=== PATIENT | female | born 2005 | race Caucasian/White ===

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

== ENCOUNTER 2023-01-11 00:32 | Outpatient (CLI) | payer OTHER, SELFPAY ==
--- NOTE | 2023-01-11 01:13 | PC.NURSE ---
pt states she felt a gush of fluid and was unsure if it was her water or not. romplus obtained at 0054. negative at 0114. Dr. Hung notified of pt status, instructed to send pt home.
== END 2023-01-11 00:33 | disposition home or self-care (01) ==
LOC: ANHOBOP 00:57
PROVIDERS: PCP Physician Assistant; Visit Provider Obstetrics & Gynecology
DX: O42.90 Premature rupture of membranes, unspecified as to length of time between rupture and onset of labor, unspecified weeks of gestation (principal); Z3A.00 Weeks of gestation of pregnancy not specified
CPT/HCPCS: 59025

== ENCOUNTER 2023-01-13 00:57 | Observation (INO) | payer OTHER, SELFPAY ==
[2023-01-13] VITALS (8 sets, daily range): BP systolic 106–128; BP diastolic 65–86; PULSE 87–137; BMI 32.9
[2023-01-13 01:36] LABS: Appearance Urine Clear (Clear); Bilirubin Urine Negative (Negative); Blood Urine Negative (Negative); Color Urine Yellow (Yellow); Glucose Urine UA Negative (Negative); Ketones Urine 2+ mg/dL (Negative); Leukocyte Esterase Ur 1+ LEU/UL (Negative); Nitrate Urine Negative (Negative); Protein Urine Negative (Negative); Urobilinogen Urine 0.2 mg/dL (<2.0); pH Urine 6.5 (5.0-9.0)
[2023-01-13 01:37] LABS: Add Urine Microscopic? YES; RBC Urine 0-2 /hpf (0-2); WBC Urine 0-3 /hpf
--- NOTE | 2023-02-10 18:21 | PM.OBTRLD ---
OB - Triage/Final Diagnosis Visit Information Comments/Additional reasons for admission: I have assessed the risk for this patient, Lilia Miranda, and determined that she would benefit from observation care. Evaluation Laboratory results: Laboratory Tests 01/13/23 01:19 Urine Color Yellow Urine Appearance Clear Urine pH 6.5 Ur Specific [place] 1.020 Urine Protein Negative Urine Glucose (UA) Negative Urine Ketones 2+ H Ur Blood (Man) Negative Urine Nitrate Negative Urine Bilirubin Negative Urine Urobilinogen 0.2 Leukocyte Esterase Rfl 1+ H Urine RBC 0-2 Urine WBC 0-3 Final Diagnosis (1) False labor: Code(s): O47.9 - False labor, unspecified Status: Acute
== END 2023-01-13 03:15 | disposition home or self-care (01) ==
PROVIDERS: Admitting Provider Obstetrics & Gynecology; PCP Physician Assistant; Referring Provider Advanced Practice Midwife; Visit Provider Obstetrics & Gynecology
DX: O47.03 False labor before 37 completed weeks of gestation, third trimester (principal); Z3A.36 36 weeks gestation of pregnancy
CPT/HCPCS: 81001; G0378; G0379

== ENCOUNTER 2023-01-19 19:45 | Observation (INO) | payer OTHER, SELFPAY ==
[2023-01-19] VITALS (11 sets, daily range): BP systolic 109–129; BP diastolic 48–81; PULSE 84–106; BMI 33.8
== END 2023-01-19 23:45 | disposition home or self-care (01) ==
PROVIDERS: Admitting Provider Obstetrics & Gynecology; PCP Physician Assistant; Referring Provider Advanced Practice Midwife; Visit Provider Obstetrics & Gynecology
DX: O47.03 False labor before 37 completed weeks of gestation, third trimester (principal); Z3A.36 36 weeks gestation of pregnancy
CPT/HCPCS: G0378; G0379

== ENCOUNTER 2023-01-31 12:58 | Observation (INO) | payer OTHER, SELFPAY ==
--- NOTE | ~2023-01-31 | US_ITS ---
EXAMINATION: US OB limited w BPP DATE: 01/31/2023 18:39 INDICATION: Status post fall, evaluate placenta and BPP. TECHNIQUE: Real-time ultrasound of the pelvis was performed. COMPARISON: None. FINDINGS: There is a single living fetus in vertex presentation, oblique lie. The placenta is fundal. he art rate is 142 bpm. The amniotic fluid index is 22.6 cm, which is normal (5th to 95th percentile is 7.3 to 23.9 cm). Biophysical profile performed by the technologist: breathing (30 sec sustained breathing in 30 minutes): 2 out of 2. movement (3 gross body movements in 30 minutes: 2 out of 2. tone (one episode of zfhftoy-anffcphfy-ybpschq limb movement): 2 out of 2. Amniotic fluid pocket (2 cm): 2 out of 2. Total score: 8 out of 8. IMPRESSION: Single living fetus in vertex presentation. Biophysical profile 8 out of 8. Normal appearing fundal placenta. Reviewed, dictated and finalized at location K.
[2023-01-31 14:00] VITALS: BMI 34.5
--- NOTE | 2023-01-31 14:00 | OBADM ---
This patient, Lilia Miranda, admitted to the OB room Labor/Delivery/Recovery 104 for observation after falling. Patient/family oriented to hospital policies and general routines including ID bracelet, bed and alarms, visiting hours, pain management, procedures, bathroom and other care routines, personal items, smoking policy, room service/diet, and visiting hours. Patient/Family are encouraged to report perceived risks to care and to ask questions if they do not understand what they are told or what they should do.
[2023-01-31 17:31] VITALS: BP 120/54; PULSE 103
[2023-01-31 17:47] LABS: Glucose Point of Care 127 mg/dl (65-105)
--- NOTE | 2023-01-31 18:57 | PC.NURSE ---
Arvin Dumont CNM updated on PT ultrasound results. Orders for discharge received.
--- NOTE | 2023-02-01 16:13 | PM.OBTRLD ---
OB - Triage/Final Diagnosis Visit Information Date of evaluation: 01/31/23 Reason for evaluation: other (fall) Comments/Additional reasons for admission: I have assessed the risk for this patient, Lilia Miranda, and determined that she would benefit from observation care. Evaluation Laboratory results: Laboratory Tests 01/31/23 17:39 POC Capillary Glucose 127 H Vital signs: Vital Signs - 24 hr 01/31/23 17:31 Pulse Rate 103 H Blood Pressure 120/54 L
== END 2023-01-31 19:17 | disposition home or self-care (01) ==
PROVIDERS: Admitting Provider Obstetrics & Gynecology; PCP Physician Assistant; Visit Provider Obstetrics & Gynecology
DX: Z04.3 Encounter for examination and observation following other accident (principal)
CPT/HCPCS: 76815; 76819; 82948; G0378; G0379

== ENCOUNTER 2023-02-01 14:06 | Outpatient (CLI) | payer OTHER, SELFPAY ==
[2023-02-01 14:47] LABS: Mean Corpuscular HGB Conc 30.3 g/dl (32-36); Mean Corpuscular Hemoglobin 23.1 pg (26-34); Mean Corpuscular Volume 76.4 fl (80-100); Mean Platelet Volume 10.3 fl (7.4-10.4); Platelet Count Result 245 k/mm3 (150-375); Red Blood Count 4.32 M/mm3 (4.2-5.4); Red Cell Distribution Width 14.8 % (11.5-14.5); White Blood Count 11.3 K/mm3 (4.5-10.0)
[2023-02-01 14:52] LABS: Alanine Aminotransferase 20 U/L (6-35); Albumin Level 3.5 g/dL (3.7-5.6); Alkaline Phosphatase 194 U/L (45-116); Anion Gap 6 mmol/L (8-16); Aspartate Amino Transferase 23 U/L (14-36); Bilirubin,Total 0.3 mg/dL (0.2-1.3); Blood Urea Nitrogen 8 mg/dL (8-21); Calcium 8.8 mg/dL (8.9-10.7); Carbon Dioxide 20 mmol/L (22-30); Chloride 105 mmol/L (98-107); Estimated Glomerular Filt Rate > 60; Glucose 106 mg/dL (65-110); Potassium 3.6 mmol/L (3.4-5.0); Sodium 131 mmol/L (134-143); Uric Acid 3.9 mg/dL (3.0-5.9)
== END 2023-02-01 14:07 | disposition home or self-care (01) ==
LOC: ANHLAB 14:09
PROVIDERS: PCP Physician Assistant; Visit Provider Advanced Practice Midwife
DX: O13.9 Gestational [pregnancy-induced] hypertension without significant proteinuria, unspecified trimester (principal); Z3A.00 Weeks of gestation of pregnancy not specified
CPT/HCPCS: 36415; 80053; 84550; 85027

== ENCOUNTER 2023-02-04 00:04 | Inpatient (IN) | payer OTHER, SELFPAY ==
[2023-02-04] VITALS (106 sets, daily range): BP systolic 95–150; BP diastolic 42–79; PULSE 75–137; RESP 17–20; TEMP 36.1–37.7; O2SAT 95–100; BMI 34.5
--- NOTE | 2023-02-04 00:23 | LDADM ---
This patient, Lilia Miranda, was admitted to Labor/Delivery/Recovery 104 on 02/04/23 at 00:04. Plans for labor, pain management and were discussed with patient. Patient/family oriented to hospital policies and general routines including ID bracelet, bed and alarms, visiting hours, pain management, procedures, bathroom and other care routines, personal items, smoking policy, room service/diet and guest tray routines, infant security routines, and visiting hours. Patient/Family are encouraged to report perceived risks to care and to ask questions if they do not understand what they are told or what they should do. See OBIX for further documentation.
--- NOTE | 2023-02-04 01:21 | P.PNAN_ITS ---
Anes - Eval Pre Procedure Procedure: labor epidural Date/Time: 02/04/23 01:21 Surgeon: iona Preop Diagnosis: pain during labor Pre Op Diagnosis: IOL Patient Data Age: 17 Gender: F Height: 1.7 m Weight: 100 kg Last Vital Signs O2 Del Method Room Air 02/04/23 00:23 Allergies Allergy/AdvReac Type Severity Reaction Status Date / Time bee venom protein (honey bee) Allergy Unknown Hives Verified 01/24/23 15:44 [bees] venom-wasp Allergy Unknown Hives Verified 01/24/23 15:44 red dye Allergy Swelling Verified 01/24/23 15:44 of Lip/Tongue/Throat Home Medications Medication Instructions Recorded Confirmed Type buspirone 5 mg tablet 15 mg PO DAILY 11/09/20 02/04/23 History lamotrigine 25 mg tablet 75 mg PO DAILY 10/25/21 02/04/23 History famotidine 10 mg tablet 10 mg PO DAILY 12/31/22 02/04/23 History lorazepam 1 mg tablet (Ativan) 1 mg PO DAILY PRN Anxiety 12/31/22 01/31/23 History glyburide 2.5 mg tablet 2.5 mg PO DAILY 01/24/23 02/04/23 History prenat.vits,shawn,xkt-aaet-jnxpp 1 tablet PO DAILY 01/24/23 02/04/23 History fluoxetine 10 mg capsule 30 mg PO DAILY 01/31/23 02/04/23 History ondansetron 4 mg disintegrating 4 mg PO Q8H PRN Nausea And Vomiting 01/31/23 01/31/23 History tablet Patient hx anesthesia problems: none Family hx anesthesia problems: none Results Review: All pre-operative results and documents have been reviewed as part of the pre- operative evaluation. [facility] Past Medical History Medical History (Updated 12/30/22 @ 20:09 by Pina Hung MD) Ankle fracture, left Anxiety Depression Right arm fracture Tonsillitis UTI (urinary tract infection) Surgical History Surgical History History of dental surgery Family History Family History (Updated 01/24/23 @ 15:51 by Iva Jacinto RN) Father Diabetes mellitus SVT (supraventricular tachycardia) Grandparent Diabetes mellitus Grandparent Diabetes mellitus Social History Social History Smoking status: Never smoker Alcohol intake: current Substance use: never Lack of Transportation: No Lack of Food: Never True Current Housing: I Have Housing Concerned About Future Housing: No Difficulty Paying Gas/Electric Bills: No Difficulty Paying for Meds: No Currently Unemployed: No Education: High School Diploma/GED Difficulty w/ Childcare or Family Care: No Gender identity (if verbalized by the patient): Female Spiritual care concerns: No Exam Day of Procedure 02/04/23 01:21
[2023-02-04 01:43] LABS: Basophils Percent Auto 0.4 % (0.2-1.2); Eosinophils Absolute Auto 0.1 K/mm3 (0-0.3); Eosinophils Percent Auto 0.6 % (0-4.4); Hematocrit 32.4 % (37.0-47.0); Hemoglobin 9.8 g/dL (12.0-15.0); Immature Granulocyte Absolute 0.09 K/mm3 (0.00-0.031); Immature Granulocyte Percent A 0.8 % (0-0.5); Lymphocytes Absolute Auto 1.99 K/mm3 (0.9-3.2); Lymphocytes Percent Auto 18.3 % (18.3-44.2); Mean Corpuscular HGB Conc 30.2 g/dl (32-36); Mean Corpuscular Hemoglobin 23.2 pg (26-34); Mean Corpuscular Volume 76.6 fl (80-100); Monocytes Absolute Auto 0.7 K/mm3 (0.1-0.6); Monocytes Percent Auto 6.6 % (2.6-8.5); Neutrophils Percent Auto 73.3 % (45.5-73.1); Platelet Count Result 243 k/mm3 (150-375); Red Blood Count 4.23 M/mm3 (4.2-5.4); Red Cell Distribution Width 15.2 % (11.5-14.5); White Blood Count 10.9 K/mm3 (4.5-10.0)
[2023-02-04 01:56] LABS: Glucose Point of Care 107 mg/dl (65-105)
[2023-02-04] MEDS: LACTATED RINGERS 1,000 ML 125 ML IV CONT ×2 (02:09→09:16)
[2023-02-04] MEDS: OXYTOCIN 30 UNITS/NS 500 ML 30 UNITS/500 ML BAG 6 UNITS IV CONT (02:10)
[2023-02-04] MEDS: glyBURIDE 2.5 MG TABLET PO (02:36)
[2023-02-04] MEDS: ONDANSETRON INJ 4 MG/2 ML VIAL IV PUSH (02:37)
[2023-02-04] MEDS: diphenhydrAMINE HCl INJ 50 MG/ML VIAL 25 MG IV PUSH ×2 (02:37→11:44)
[2023-02-04 03:00] LABS: HIV 1/2 Ab P24 Ag Result Negative (Negative)
[2023-02-04 06:36] LABS: Glucose Point of Care 77 mg/dl (65-105)
[2023-02-04 07:41] LABS: Rapid Plasma Reagin Non-Reactive (NonReactive)
[2023-02-04] MEDS: fentaNYL CITRATE INJ (*CRX) 100 MCG/2 ML VIAL 50 MCG IV PUSH (08:06)
--- NOTE | 2023-02-04 08:51 | PM.IMHP ---
H&P: HPI History of Present Illness Date/Time: 02/04/23 08:51 Chief Complaint: pt is a at 39 weeks gestation, presents for IOL, GDMA-2, on glyburide. hx anemia, bipolar disorder, anxiety, and depression. co-managing pt today with Dr. Shaikh. Review of Systems Review of Systems: All systems reviewed & are unremarkable except as noted in HPI and below PMFSH Past Medical History Medical History (Updated 02/04/23 @ 08:54 by Yoanna Dumont CNM) Ankle fracture, left Anxiety Depression Right arm fracture Tonsillitis UTI (urinary tract infection) Surgical History Surgical History History of dental surgery Family History Family History (Updated 01/24/23 @ 15:51 by Iva Jacinto RN) Father Diabetes mellitus SVT (supraventricular tachycardia) Grandparent Diabetes mellitus Grandparent Diabetes mellitus Social History Social History Smoking status: Never smoker Alcohol intake: current Substance use: never Lack of Transportation: No Lack of Food: Never True Current Housing: I Have Housing Concerned About Future Housing: No Difficulty Paying Gas/Electric Bills: No Difficulty Paying for Meds: No Currently Unemployed: No Education: High School Diploma/GED Difficulty w/ Childcare or Family Care: No Gender identity (if verbalized by the patient): Female Spiritual care concerns: No Meds Home Medications and Allergies Home Medications Medication Instructions Recorded Confirmed Type buspirone 5 mg tablet 15 mg PO DAILY 11/09/20 02/04/23 History lamotrigine 25 mg tablet 75 mg PO DAILY 10/25/21 02/04/23 History famotidine 10 mg tablet 10 mg PO DAILY 12/31/22 02/04/23 History lorazepam 1 mg tablet (Ativan) 1 mg PO DAILY PRN Anxiety 12/31/22 02/04/23 History glyburide 2.5 mg tablet 2.5 mg PO DAILY 01/24/23 02/04/23 History prenat.vits,shawn,krh-bkud-pjnwr 1 tablet PO DAILY 01/24/23 02/04/23 History fluoxetine 10 mg capsule 30 mg PO DAILY 01/31/23 02/04/23 History ondansetron 4 mg disintegrating 4 mg PO Q8H PRN Nausea And Vomiting 01/31/23 01/31/23 History tablet Allergies Allergy/AdvReac Type Severity Reaction Status Date / Time bee venom protein (honey bee) Allergy Unknown Hives Verified 01/24/23 15:44 [bees] venom-wasp Allergy Unknown Hives Verified 01/24/23 15:44 red dye Allergy Swelling Verified 01/24/23 15:44 of Lip/Tongue/Throat Vital Signs Vital Signs - 24 hr 02/04/23 00:23 02/04/23 02:20 02/04/23 03:01 Temperature Pulse Rate 89 83 Blood Pressure 98/53 L 98/45 L Oxygen Delivery Room Air 02/04/23 03:31 02/04/23 04:01 02/04/23 05:01 Temperature Pulse Rate 90 75 84 Blood Pressure 112/55 L 105/42 L 104/78 Oxygen Delivery 02/04/23 05:31 02/04/23 06:22 02/04/23 06:30 Temperature 36.8 C Pulse Rate 81 103 H Blood Pressure 95/44 L 130/73 Oxygen Delivery 02/04/23 08:04 02/04/23 08:31 Temperature Pulse Rate 98 84 Blood Pressure 130/46 L 116/51 L Oxygen Delivery Exam Const: General: cooperative, healthy appearing and comfortable Chest: Chest palpation & inspection: normal inspection of the chest Resp: Effort & Inspection: normal respiratory effort Cardio: Rate: regular rate Rhythm: regular rhythm GI: Inspection: normal to inspection : Other: SVE 5/80/-2 Skin: General skin exam: normal color and no rashes or lesions noted Extrem: Right lower extremity: normal to inspection Left lower extremity: normal to inspection H&P: Results Labs Labs: Short CBC 02/04/23 Range/Units 00:52 WBC 10.9 H (4.5-10.0) K/mm3 Hgb 9.8 L (12.0-15.0) g/dL Hct 32.4 L (37.0-47.0) % Plt Count 243 (150-375) k/mm3 Assessment and Plan Assessment and plan (1) Bipolar 1 disorder: Code(s): F31.9 - Bipolar disorder, unspecified Status: Acute
[2023-02-04] MEDS: fentaNYL CITRATE INJ (*CRX) 100 MCG/2 ML VIAL IV PUSH (09:17)
[2023-02-04 10:39] LABS: Glucose Point of Care 87 mg/dl (65-105)
[2023-02-04 11:50] LABS: Glucose Point of Care 70 mg/dl (65-105)
--- NOTE | 2023-02-04 14:21 | PM.OBPRVD ---
OB - Delivery Note Procedure Delivery date: 02/04/23 Procedure: Events: Diabetes Mellitus and Other (anxiety) Induction method: AROM and Per Pitocin Protocol Delivery monitor: External FHT and Internal Uterine Route of delivery: Laceration Description: Perineal - 2nd Degree Delivery repair: vicryl Specimen: Yes Quantitative Blood Loss (ml): 260 Anesthesia type: Epidural Disposition: Floor Baby Date of : 02/04/23 Time of : 14:05 Weeks of gestation at delivery: 39 Infant gender: Male Weight (pounds): 8 Weight (ounces): 9 presentation: vertex position: Left Occiput Anterior Placenta delivery description: Spontaneous Cord Vessel Description: 3 Vessels and Clamped/Cut score one minute: 9 score five minutes: 9 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
[2023-02-04] MEDS: OXYTOCIN 30 UNITS/NS 500 ML 30 UNITS/500 ML BAG 125 UNITS IV CONT (14:50)
[2023-02-04] MEDS: WITCH HAZEL 40 PADS 1 PAD TOPICAL (15:57)
[2023-02-04] MEDS: BENZOCAINE 20% AER SPR (*SP) 56 GM CAN 1 SPRAY TOPICAL (15:57)
[2023-02-04] MEDS: IBUPROFEN 600 MG TABLET PO (15:57)
--- NOTE | 2023-02-04 17:29 | PHAR ---
HOME MED: PILL SENT FROM [employer]. PILL IS IDENTIFIED TO BE FLUOXETINE. COLOR: BLUE , WHITE SHAPE: CAPSULE-SHAPE IMPRINT: FLUOXETINE 40MG; R149 ROUTE: ORAL ROUTE FORM: CAPSULE VERIFIED BY PHARMACY
[2023-02-04] MEDS: ACETAMINOPHEN 325 MG TABLET 650 MG (20:17)
[2023-02-05] MEDS: IBUPROFEN 600 MG TABLET PO ×3 (05:27→23:49)
[2023-02-05] MEDS: ACETAMINOPHEN 325 MG TABLET 650 MG PO ×3 (05:29→23:51)
[2023-02-05 05:32] LABS: Hematocrit 33.5 % (37.0-47.0); Hemoglobin 9.9 g/dL (12.0-15.0)
[2023-02-05 07:40] VITALS: BP 114/64; PULSE 103; RESP 16; TEMP 36.9; O2SAT 99
--- NOTE | 2023-02-05 08:57 | PM.OBPNVD ---
OB - PN: Subj Subjective Date/time seen: 02/05/23 08:57 Patient comments: no complaints, pain well controlled, incisional pain, tolerating diet and flatus present OB - PN: Obj Data Labs 02/05/23 05:20 Labs: Laboratory Results - last 24 hr 02/04/23 02/04/23 02/05/23 10:33 11:47 05:20 Hgb 9.9 L Hct 33.5 L POC Capillary Glucose 87 70 OB - PN A/P Plan day: 1 Plan: routine care Comments: No problems, routine care Time Spent With Patient Time: Total time spent is greater than 50% in coordination of care (as documented) at patient's floor/unit and/or counseling patient: Exam Const: General: healthy appearing, comfortable and no acute distress Resp: Effort & Inspection: normal respiratory effort Auscultation: clear to auscultation bilaterally, no rales, no rhonchi and no wheezes Cardio: Rate: regular rate Heart sounds: no click, no murmurs and no rubs GI: Inspection: non-distended GI Palp: No Tenderness to palpation present (GI) Auscultation: normal bowel sounds Other: Incision - CDI Extrem: General: normal to inspection, no pedal edema and no calf tenderness
[2023-02-05] MEDS: lamoTRIgine 50 MG TABLET PO (09:00)
[2023-02-05] MEDS: MULTIVIT/MIN/PREN/FOL AC/IRON TABLET 1 TAB PO (09:00)
[2023-02-05] MEDS: busPIRone HCL 5 MG TABLET 15 MG PO (09:00)
[2023-02-05] MEDS: WITCH HAZEL 40 PADS 1 PAD TOPICAL ×2 (09:48→18:02)
--- NOTE | 2023-02-05 13:57 | WPDANLDPN2 ---
Anes-Prog Note L&D Date/Time: 02/05/23 13:57 Comfortable throughout: labor and delivery Neuraxial method: epidural Epidural/Spinal procedure site: clean & non-tender (some discomfort from tape on upper back. Epidural insertion site no redness or pain. ) Neuro status: Neuro function grossly intact. Cardiovascular status: normal Respiratory status: normal Airway patency: baseline Mental status: baseline Post-Op hydration status: normal Vital Signs: Last Vital Signs Temp 36.9 C 02/05/23 07:40 Pulse 103 H 02/05/23 07:40 Resp 16 02/05/23 07:40 BP 114/64 02/05/23 07:40 Pulse Ox 99 02/05/23 07:40 O2 Del Method Room Air 02/04/23 00:23 Pain score (VAS): 3/10 I/O: Intake & Output 02/04/23 02/05/23 02/05/23 23:59 07:59 15:59 Intake Total 1900 Output Total 195 Balance 1705 Post-procedural complaints: none Patient feedback: Patient satisfied with anesthetic care.
[2023-02-05 14:00] VITALS: BP 99/53; PULSE 76; RESP 16; TEMP 36.6; O2SAT 98
[2023-02-05] MEDS: TETANUS,DIPHTHERIA,AC PERTUSSIS ADULT (0.5 ML) BOOSTRIX IM (16:00)
[2023-02-05] MEDS: DIBUCAINE 1% OINTMENT 30 GM TUBE 1 APPLIC TOPICAL (18:02)
[2023-02-05] MEDS: BENZOCAINE 20% AER SPR (*SP) 56 GM CAN 1 SPRAY TOPICAL (18:02)
[2023-02-05 19:25] VITALS: BP 123/61; PULSE 81; RESP 18; TEMP 36.4
--- NOTE | 2023-02-06 07:18 | PM.OBPNVD ---
OB - PN: Subj Subjective Date/time seen: 02/06/23 07:18 PP day 2 anxiety has increased, plan to call MD for increase in medication discussed breast vs bottle feeding plan to d/c home today OB - PN: Obj Data Labs 02/05/23 05:20 OB - PN A/P Plan day: 2 Plan: routine care and discharge home Time Spent With Patient Time: Total time spent is greater than 50% in coordination of care (as documented) at patient's floor/unit and/or counseling patient: Review of Systems Review of Systems: All systems reviewed & are unremarkable except as noted in HPI and below Exam Const: General: cooperative, healthy appearing and anxious Chest: Chest palpation & inspection: normal inspection of the chest Resp: Effort & Inspection: normal respiratory effort Cardio: Rate: regular rate Rhythm: regular rhythm GI: Other: soft Skin: General skin exam: normal color and no rashes or lesions noted Extrem: Right lower extremity: normal to inspection Left lower extremity: normal to inspection
--- NOTE | 2023-02-06 07:22 | P.DS_ITS ---
DS: Admitting Diagnosis Discharge Date 02/06/23 Admitting Diagnosis IOL, GDMA-2 DS: Discharge Diagnosis Discharge Diagnosis (1) Vaginal delivery: Code(s): O80 - Encounter for full-term uncomplicated delivery Status: Acute (2) Bipolar 1 disorder: Code(s): F31.9 - Bipolar disorder, unspecified Status: Acute OB - DS: Summary OB Procedures : None OB Procedures Intrapartum: Spontaneous Vag Delivery OB Procedures: : None Time Spent with Patient Time attestation: Total time spent providing and/or coordinating discharge services: DS: Data Data Completed and Pending Pending studies at discharge: Pending at discharge 02/04/23 14:08 Surgical [PTH] Routine Discharge Plan Discharge Attending physician on discharge: Pina Hung Discharging Clinician: Yoanna Dumont Patient Disposition: Home, Self-Care Activity: pelvic rest Diet: regular Patient Instructions: Antibiotic Form Stand Alone Forms: General Discharge Information Follow-up/Referrals: Yoanna Dumont, CNM [Certified Nurse Metallurgical Technician] - 4 Weeks Discharge Medications: New ibuprofen 600 mg Tablet 600 mg PO Q6H PRN (Reason: Cramping) Qty: 30 0RF Continued buspirone 5 mg Tablet 15 mg PO DAILY lamotrigine 25 mg Tablet 75 mg PO DAILY famotidine 10 mg Tablet 10 mg PO DAILY lorazepam [Ativan] 1 mg Tablet 1 mg PO DAILY PRN (Reason: Anxiety) prenat.vits,shawn,who-jjri-pzckh Tablet 1 tablet PO DAILY fluoxetine 10 mg capsule 30 mg PO DAILY Discontinued glyburide 2.5 mg Tablet 2.5 mg PO DAILY ondansetron 4 mg tablet,disintegrating 4 mg PO Q8H PRN (Reason: Nausea And Vomiting) Date of admission: 02/04/23 00:04 Primary Care Provider: Ricco,Ondina Whitney Admitting Provider: Pina Hung Attending physician on admission: Pina Hung Condition: Stable
[2023-02-06 07:40] VITALS: BP 125/73; PULSE 95; RESP 18; TEMP 36.4; O2SAT 100
[2023-02-06] MEDS: IBUPROFEN 600 MG TABLET PO (09:08)
[2023-02-06] MEDS: ACETAMINOPHEN 325 MG TABLET 650 MG PO (09:09)
--- NOTE | 2023-02-06 09:34 | PC.NURSE ---
Addendum entered by Keesha Stinson RN 02/06/23 15:53: Error: Patient was given the opportunity to view the discharge video Mother & Baby Care, The First Two Weeks and to ask questions. Patient stated that she did review this video and verbalizes understanding of information. Original Note: Patient was given the opportunity to view the discharge video Mother & Baby Care, The First Two Weeks and to ask questions. Patient declined viewing the video and has been given the mother/baby guide for home reference.
--- NOTE | 2023-02-06 17:15 | PC.NURSE ---
[id number] Introductions were made, then consulted with patient to assess needs related to . Mother led the conversation with her?plans to feed?her infant and the?experience so far. Mother works well with her with encouragement and education. Encouraged understanding of the benefits of skin to skin (demonstrating unwrapping and placing upright on her chest), stimulating with massage touch, changing positions to encourage wakefulness, how to watch for early feeding cues, responsive feeding, feeding on demand (aiming for 8-12 times in 24 hours, about every 2-3 hours), milk production, building/maintaining a milk supply, duration of feeding, signs of adequate intake/output and how to record on the feeding sheet. Reviewed positioning and ear, shoulder, hip alignment, supporting the breast to facilitate a deep latch, asymmetrical latch (off-center), leading with the chin with a big, open, wide gape and body close to mother. Infant latched optimally to the right breast in football position. Education given to mother of how to visualize suck/swallow ratios and listen for drinking at the breast. Infant was able to maintain latch without discomfort to mother. Nipple care reviewed with optimal latch and good positioning. Reminding mother of comfort measures of healing with a warm and wet washcloth to rinse breast, then leave open to air-dry as needed. Reviewed good handwashing when or touching the breast/nipples to prevent infection. Resources used to facilitate learning were used with the visual handouts, tool, mom and baby guide. Mother voiced understanding of skin to skin, stimulating with massage touch, responsive feedings, hand expressed colostrum, talking to infant to encourage if it has been 2 -2.5 hours since the start of the last , to call if does not latch, or if there is discomfort with . Resources provided for inpatient/outpatient with feeding sheet and the mom/baby guide. Parents voiced understanding of information, demonstrated learning and will call if there is a request for assistance. Reinforced understanding of milk production, transition of milk, signs of adequate intake, transition of stool, prevention/relief of engorgement, responsive watching for feeding cues, the different methods of stimulating infant to breastfeed 2-3 hours after the start of the last feeding, community resources, medication information reviewed per [employer] and when to call a provider using the resource of the mom and baby guide. Mother voiced understanding of the education shared. Reported to the primary RN.
[2023-02-07 11:19] VITALS: BP 124/75; PULSE 99; RESP 18; TEMP 37.4; O2SAT 99
== END 2023-02-06 15:57 | disposition home or self-care (01) | DRG 560 ==
LOC: ANHLDR 00:09 → ANHOB2 16:32
PROVIDERS: Advanced Practice Midwife; Admitting Provider Obstetrics & Gynecology; PCP Physician Assistant; Visit Provider Obstetrics & Gynecology
DX: O24.429 Gestational diabetes mellitus in childbirth, unspecified control (principal); Z37.0 Single live birth; Z3A.39 39 weeks gestation of pregnancy; D64.9 Anemia, unspecified; O70.1 Second degree perineal laceration during delivery; O77.0 Labor and delivery complicated by meconium in amniotic fluid; O99.344 Other mental disorders complicating childbirth; F31.9 Bipolar disorder, unspecified; F41.9 Anxiety disorder, unspecified; O99.02 Anemia complicating childbirth
CPT/HCPCS: 36415; 80053; 82948; 84550; 85014; 85018; 85025; 85027; 86592; 86703; 86850; 86900; 86901; 88307; 90715; A9270; G0432; J1200; J2405; J2590; J2795; J3010; J7120

== ENCOUNTER 2023-09-24 09:54 | Emergency (ER) | payer OTHER, SELFPAY ==
--- NOTE | 2023-09-24 10:18 | ED.GENADULT ---
HPI - General Adult General Chief complaint: Upper Respiratory Infection Stated complaint: Sore Throat Source: patient, RN notes reviewed and old records reviewed Mode of arrival: ambulatory Limitations: no limitations History of Present Illness HPI narrative: 18-year-old female presents to [facility], with complaint of cough, congestion, sore throat this started 2 days ago. Patient has not taken anything [id number] for symptoms. Patient denies any other complaints. Related Data Home Medications Medication Instructions Recorded Confirmed buspirone 15 mg tablet mg 09/24/23 etonogestrel 0.12 mg-ethinyl vag ring vaginal 09/24/23 estradiol 0.015 mg/24 hr vaginal ring fluoxetine 40 mg capsule mg 09/24/23 lamotrigine 150 mg tablet mg 09/24/23 lurasidone 40 mg tablet mg 09/24/23 trazodone 50 mg tablet mg 09/24/23 Allergies Allergy/AdvReac Type Severity Reaction Status Date / Time bee venom protein (honey bee) Allergy Unknown Anaphylactic Verified 09/24/23 10:30 [bees] Shock venom-wasp Allergy Unknown Anaphylactic Verified 09/24/23 10:30 Shock red dye Allergy Swelling Verified 09/24/23 10:00 of Lip/Tongue/Throat Review of Systems Constitutional: Constitutional: Reports no additional constitutional complaints, Denies body ache(s), Denies chills, Denies fatigue, Denies fever(s) and Denies headache(s) Eyes: Eyes: Reports no additional eye complaints and Denies blurry vision ENT: Reports system reviewed and no additional complaints, except as documented, Denies vertigo, Denies dizziness, Denies ear discharge, Denies otalgia, Denies facial pain, Denies headache(s), Reports nasal congestion, Denies nasal discharge, Denies sinus pain, Denies sinus pressure and Reports sore throat Cardiovascular: Cardiovascular: Reports no additional cardiovascular complaints, Denies chest pain, Denies chest pain at rest, Denies rapid heart rate and Denies dyspnea Respiratory: Respiratory: Reports no additional respiratory complaints, Denies chest congestion, Reports cough, Denies pain on inspiration, Denies pain with cough and Denies dyspnea Gastrointestinal: Gastrointestinal: Denies abdominal pain, Denies diarrhea, Denies nausea and Denies vomiting Integumentary/Breasts: Skin/Breast: Denies rash Neurologic: Reports system reviewed and no additional complaints, except as documented, Denies vertigo, Denies dizziness and Denies headache(s) Endocrine: Endocrine: Denies fatigue PMFSH Past Medical History Medical History Ankle fracture, left Anxiety Depression Right arm fracture Tonsillitis UTI (urinary tract infection) Surgical History Surgical History History of dental surgery Family History Family History Father Diabetes mellitus SVT (supraventricular tachycardia) Grandparent Diabetes mellitus Grandparent Diabetes mellitus Social History Social History Smoking status: Never smoker Alcohol intake: current Substance use: never Lack of Transportation: No Lack of Food: Never True Current Housing: I Have Housing Concerned About Future Housing: No Difficulty Paying Gas/Electric Bills: No Difficulty Paying for Meds: No Currently Unemployed: No Education: High School Diploma/GED Difficulty w/ Childcare or Family Care: No Gender identity (if verbalized by the patient): Female Spiritual care concerns: No Comments At the time of my signature, I reviewed and agree with the nursing past medical, surgical, social, and family history. There is no relevant family history pertinent to the patient complaint. Exam Const: General: cooperative, healthy appearing, no acute distress and well nourished Nutritional Appearance: well nourished Orientation
[2023-09-24 10:21] VITALS: BP 134/77; PULSE 94; RESP 18; O2SAT 98
== END 2023-09-24 10:50 | disposition home or self-care (01) ==
PROVIDERS: Emergency Provider Registered Nurse; PCP Physician Assistant
DX: B34.9 Viral infection, unspecified (principal); Z20.822 Contact with and (suspected) exposure to COVID-19
CPT/HCPCS: 87081; 87426; 87804; 87880; 99213; G0463

== ENCOUNTER 2024-03-02 11:51 | Emergency (ER) | payer OTHER, SELFPAY ==
[2024-03-02 11:56] VITALS: BP 134/74; PULSE 109; RESP 20; TEMP 36.9; O2SAT 99
--- NOTE | 2024-03-02 12:06 | ED.URI ---
HPI - URI/Sore Throat General Chief Complaint: Upper Respiratory Infection Stated Complaint: Sore Throat Time Seen by Provider: 03/02/24 12:06 History of Present Illness HPI Narrative: 18 y/o female presented for c/o sore throat and post nasal drainage. Onset yesterday. Endorses painful swallow and right neck pain. denies cough, sob, wheezing, n/v/d/f/c. Not taking anything for symptoms. Denies sick contact. Related Data Home Medications Medication Instructions Recorded Confirmed buspirone 15 mg tablet 15 mg PO TID 09/24/23 03/02/24 fluoxetine 40 mg capsule 40 mg PO DAILY 09/24/23 03/02/24 lamotrigine 150 mg tablet 150 mg PO DAILY 09/24/23 03/02/24 lurasidone 40 mg tablet 40 mg PO DAILY 09/24/23 03/02/24 trazodone 50 mg tablet 50 mg PO BID 09/24/23 03/02/24 bupropion HCl 100 mg tablet,12 hr 100 mg PO BID 03/02/24 03/02/24 sustained-release etonogestrel 0.12 mg-ethinyl See Rx Instructions .Route .COMPLEX 03/02/24 03/02/24 estradiol 0.015 mg/24 hr vaginal ring Allergies Allergy/AdvReac Type Severity Reaction Status Date / Time bee venom protein (honey bee) Allergy Unknown Anaphylactic Verified 03/02/24 12:08 [bees] Shock venom-wasp Allergy Unknown Anaphylactic Verified 03/02/24 12:08 Shock red dye Allergy Swelling Verified 03/02/24 12:08 of Lip/Tongue/Throat Review of Systems Review of Systems: CONSTITUTIONAL: Denies body aches, fever, chills, or sweats. EYES: Denies visual changes, redness, or discharge. ENT: reports sore throat rhinorrhea, denies otalgia. CARDIOVASCULAR: Denies chest pain, palpitations, or edema. RESPIRATORY: Denies dyspnea. GASTROINTESTINAL: Denies abdominal pain, nausea, vomiting, or diarrhea. SKIN: Denies rash, itching, or wounds. MUSCULOSKELETAL: Denies back pain, joint pain, or myalgia. NEUROLOGIC: Denies headache PMFSH Past Medical History Medical History Ankle fracture, left Anxiety Depression Right arm fracture Tonsillitis UTI (urinary tract infection) Surgical History Surgical History History of dental surgery Family History Family History Father Diabetes mellitus SVT (supraventricular tachycardia) Grandparent Diabetes mellitus Grandparent Diabetes mellitus Social History Social History Smoking status: Never smoker Alcohol intake: current Substance use: never Lack of Transportation: No Lack of Food: Never True Current Housing: I Have Housing Concerned About Future Housing: No Difficulty Paying Gas/Electric Bills: No Difficulty Paying for Meds: No Currently Unemployed: No Education: High School Diploma/GED Difficulty w/ Childcare or Family Care: No Gender identity (if verbalized by the patient): Female Spiritual care concerns: No Exam Narrative: GENERAL: well-appearing, no acute distress. EYES: conjunctivae clear ENT: Mucous membranes moist. TMs pearly santoro with normal light reflex bilaterally; no tragal tenderness. Oropharynx erythematous Tonsils enlarged 2+ with exudate. No drooling, no hoarseness, no trismus, uvula midline. No tripod positioning, hot potato voice, or soft palate swelling. NECK: Supple. right anterior cervical lymphadenopathy CHEST: Clear to auscultation, breath sounds equal. No respiratory distress, speaks in full sentences. HEART: Regular rate and rhythm. No murmur heard. SKIN: Warm, dry, no rash. NEURO: Alert and oriented x3. Course Course Emergency Course: Patient is aware of diagnosis, understands and agrees to treatment plan. Anticipatory guidance given. Patient agrees to follow-up as directed and is aware of reasons to seek care at the emergency department. Portions of this record may have been created with voice recognition software Le
[2024-03-02 12:15] LABS: EDSTREPNEGPOS1 Negative (Negative)
== END 2024-03-02 12:20 | disposition home or self-care (01) ==
PROVIDERS: Emergency Provider Nurse Practitioner Family; PCP Physician Assistant
DX: J03.90 Acute tonsillitis, unspecified (principal); F41.9 Anxiety disorder, unspecified; F32.A Depression, unspecified
CPT/HCPCS: 87081; 87880; 99213; G0463

== ENCOUNTER 2024-05-15 13:34 | Outpatient (CLI) | payer OTHER, SELFPAY ==
[2024-05-15 14:57] LABS: Beta HCG Quantitative < 2.39 mIU/ML
[2024-05-19 04:19] LABS: Progesterone 13.4 ng/mL
== END 2024-05-15 13:35 | disposition home or self-care (01) ==
PROVIDERS: PCP Physician Assistant; Visit Provider Obstetrics & Gynecology
DX: Z32.01 Encounter for pregnancy test, result positive (principal)
CPT/HCPCS: 36415; 84144; 84702

== ENCOUNTER 2024-08-26 11:05 | Emergency (ER) | payer OTHER, SELFPAY ==
[2024-08-26 11:09] VITALS: BP 119/90; PULSE 109; RESP 18; TEMP 36.6; O2SAT 100
[2024-08-26 11:43] LABS: EDUAAPPEAR Cloudy; EDUABILI Negative (Negative); EDUABLOOD Trace (Negative); EDUACOLOR1 Yellow; EDUAGLUCOSE Negative (Negative); EDUAKETONE Trace (Negative); EDUALEUKO 2+ (Negative); EDUANITRATE Negative (Negative); EDUAPROTEIN 1+ (Negative); EDUASPGRAVITY 1.025
--- NOTE | 2024-08-26 11:45 | ED_ITS ---
HPI - Female Genitourinary General Chief complaint: RATOPRINTER Stated complaint: STD Expouser Time Seen by Provider: 08/26/24 11:45 Source: patient and RN notes reviewed Mode of arrival: ambulatory Limitations: no limitations History of Present Illness HPI Narrative: 19-year-old female presents concern for exposure to STDs. She was told that she was exposed to chlamydia. She does not believe the person who told her she was exposed to chlamydia. She reports frequent history of BV. She reports she thinks she has BV. She has multiple partners, she uses condoms with all partners except her . She denies fever, aches, chills, sweats, dysuria, frequency, urgency, back pain, abdominal pain. She reports suprapubic pressure. MD elicited complaint: possible STD Related Data Home Medications ?Medication ?Instructions ?Recorded ?Confirmed ?Last Taken ?Type buspirone 15 mg tablet 15 mg PO TID 09/24/23 08/26/24 Unknown History fluoxetine 40 mg capsule 40 mg PO DAILY 09/24/23 08/26/24 Unknown History lamotrigine 150 mg tablet 150 mg PO DAILY 09/24/23 08/26/24 Unknown History trazodone 50 mg tablet 50 mg PO BID 09/24/23 08/26/24 Unknown History etonogestrel 0.12 mg-ethinyl See Rx Instructions .Route .COMPLEX 03/02/24 03/02/24 Unknown History estradiol 0.015 mg/24 hr vaginal ring Allergies Allergy/AdvReac Type Severity Reaction Status Date / Time bee venom protein (honey Allergy Unknown Anaphylactic Verified 03/02/24 12:08 bee) (bees) Shock venom-wasp Allergy Unknown Anaphylactic Verified 03/02/24 12:08 Shock red dye Allergy Swelling Verified 03/02/24 12:08 of Lip/Tongue/Throat Review of Systems Review of Systems: CONSTITUTIONAL: Denies malaise, chills, sweats, or fever. CARDIOVASCULAR: Denies chest pain, palpitations, or edema. RESPIRATORY: Denies cough or dyspnea. GASTROINTESTINAL: Denies abdominal pain, nausea, vomiting, diarrhea GENITOURINARY: Denies dysuria, frequency, urgency, suprapubic pressure. Reports vaginal discharge. Denies vaginal itching. Denies flank pain or hematuria. SKIN: Denies rash or itching. MUSCULOSKELETAL: Denies back pain or myalgia. All systems reviewed & are unremarkable except as noted in HPI and below PMFSH Past Medical History Medical History Ankle fracture, left Anxiety Depression Right arm fracture Tonsillitis UTI (urinary tract infection) Surgical History Surgical History History of dental surgery Family History Family History Father Diabetes mellitus SVT (supraventricular tachycardia) Grandparent Diabetes mellitus Grandparent Diabetes mellitus Social History Social History Smoking status: Never smoker Alcohol intake: current Substance use: never Lack of Transportation: No Lack of Food: Never True Current Housing: I Have Housing Concerned About Future Housing: No Difficulty Paying Gas/Electric Bills: No Difficulty Paying for Meds: No Currently Unemployed: No Education: High School Diploma/GED Difficulty w/ Childcare or Family Care: No Gender identity (if verbalized by the patient): Female Spiritual care concerns: No Comments At time of signature, agree with nursing past medical, surgical, social and family history. There is no relevant family history pertinent to the presenting complaint Exam Narrative: GENERAL: Well-appearing, well-nourished, and in no acute distress. HEAD: Normocephalic. EYES: PERRLA, conjunctivae clear. NECK: Supple. No lymphadenopathy CHEST: Clear to auscultation. No respiratory distress. HEART: Regular rate and rhythm. ABDOMEN: Soft, nontender upon palpation, nondistended, normal active bowel sounds, no palpable or pulsatile masses, no guarding. No CVA tenderness SKIN: Warm, dry, no rash. NEURO: Alert and oriented x3. PSYCH: Normal mood and affect Course Course Emergency Course: Discussed all treatment options with patient, will not have results of STI testing or urine culture for 1-2 days. Although urinalysis indicates possible UTI, patient would like to wait for urinalysis results before treating for UTI. Patient would also like to wait for STI testing before treating for any STIs. She understands that she may have to be seen in person to be treated for gonorrhea. Patient is aware of, understands and agrees to treatment plan. Anticipatory guidance given. Patient agrees to follow-up as directed and is aware of reasons to seek care at the emergency department. Portions of this record may have been created with voice recognition software Level of Care: Express Care Visit Vital Signs Vital signs: Vital Signs Temperature 98 F 08/26/24 11:09 Pulse Rate 109 H 08/26/24 11:09 Respiratory Rate 18 08/26/24 11:09 Blood Pressure 119/90 08/26/24 11:09 Pulse Oximetry 100 08/26/24 11:09 Oxygen Delivery Room Air 08/26/24 11:09 Temperature 98 F 08/26/24 11:09 Pulse Rate 109 H 08/26/24 11:09 Respiratory Rate 18 08/26/24 11:09 Blood Pressure 119/90 08/26/24 11:09 Pulse Oximetry 100 08/26/24 11:09 Oxygen Delivery Room Air 08/26/24 11:09 Reviewed. MDM - Female Genitourinary MDM Narrative Medical decision making narrative: Exam findings show no acute concerns or changes; patient is non-toxic appearing and is in no distress. Patient is appropriate for outpatient treatment and follow-up. Differential Diagnosis Differential diagnosis: Likely urinary tract infection and cystitis Lab Data Labs: Lab Results 08/26/24 Range/Units 11:40 POC Urine Color Yellow POC Urine Clarity Cloudy POC Urine pH 6.0 POC Ur Specif Haskell 1.025 POC Urine Protein 1+ (Negative) POC Ur Glucose (UA) Negative (Negative) POC Urine Ketones Trace (Negative) POC Urine Blood Trace (Negative) POC Urine Nitrite Negative (Negative) POC Urine Bilirubin Negative (Negative) POC Urine Urobilinogen 1.0 POC U Leukocyte Esteras 2+ (Negative) Critical Care Time Critical Care Time Critical Care Time: No Discharge Plan Discharge Clinical Impression: Problematic vaginal discharge Patient Disposition: Home, Self-Care Condition: Stable Instructions: Safe Sex Practices (ED), Vaginal Discharge (ED) Additional Instructions: Per our discussion we will treat for BV today. Any other treatment for STI or urinary tract infection is pending further testing. We will send a urine culture to the lab; if the culture identifies an organism that requires an antibiotic, you will receive a phone call from an urgent care staff member and an appropriate antibiotic will be prescribed. You have been tested for potential gonorrhea, chlamydia, and trichomoniasis today. You will receive a phone call in 1-2 days with the results of today's testing. If any treatment is required will be discussed at that time. If are positive for gonorrhea, you will need to be seen in person to get an injection of antibiotic. It is very important that you avoid unprotected intercourse during treatment and for 7 days AFTER TREATMENT is complete and until your partner(s) have been treated. Please encourage your partner(s) to seek testing and treatment. When you have been exposed to sexually transmitted infections, it is important that you seek comprehensive testing, since we do not provide testing for all sexually transmitted infections. Some infections can have no symptoms, but cause serious health problems. Contact your health care provider or report to the emergency department if: You have genital swelling or pain, or unusual bleeding. You have joint pain, rash, swollen lymph nodes or night sweats. You are severe abdominal pain. You have a fever. Symptoms do not go away or they get worse even after treatment. You have bleeding or pain during sex. Patient Language: Latvian Prescriptions: New metronidazole 500 mg tablet 500 mg PO BID 7 Days Qty: 14 0RF No Action fluoxetine 40 mg capsule 40 mg PO DAILY lamotrigine 150 mg tablet 150 mg PO DAILY trazodone 50 mg tablet 50 mg PO BID buspirone 15 mg tablet 15 mg PO TID etonogestrel-ethinyl estradiol 0.12-0.015 mg/24 hr ring See Rx Instructions .ROUTE .COMPLEX Rx Instructions: as prescribed Follow-up/Referrals: PHYSICIAN,CANDY DEPOSITING MACHINE OPERATOR [Primary Care Provider] - Time of Disposition: 11:58
--- OUTSIDE RECORDS SUMMARY | 2024-08-26 12:46 | XMS_ITS | Clinical Summary ---
Author Organization [facility] Address [address] [place] [address] Care Team Providers Care Service Consultant Name Role Phone Franca Monroy PA-C Primary Care Provider Source Comments [facility],non-owned Affiliates and Associated Physician Practices is amultiple site organization consisting of ambulatory clinics and hospital sitesin [place], [place], [place] and [place]. This disclosure is being madepursuant to the Care Everywhere program and may not contain all information available regarding this patient. Last updated 18.[facility] Allergies Active Allergy Reactions Criticality Noted Date Comments Bee Anaphylaxis High 11/29/2015 Wasp Venom Anaphylaxis High 11/29/2015 Medications * Be aware that medications may not be up to date on this document. Alwaysverify current medications with the patient. Medication Sig Dispensed Refills Start Date End Date Status EPIPEN 2-MISTY 0.3 MG/0.3ML auto-injector pen 2 05/05/2015 Active venlafaxine XR 24hr (EFFEXOR XR) 75 MG capsule TK 1 C PO QD 2 08/30/2017 Active busPIRone (BUSPAR) 5 MG tablet 07/13/2020 Active LORazepam (ATIVAN) 1 MG tablet Take 1 mg by mouth as needed 08/26/2020 Active FLUoxetine (PROZAC) 10 MG capsule Take 10 mg by mouth once daily 01/09/2021 Active ibuprofen (MOTRIN) 600 MG tablet Take 1 (one) tablet by mouth every 6 hours as needed for Pain 40 tablet 01/17/2021 Active docusate sodium (COLACE) 100 MG capsule Take 1 (one) capsule by mouth 2 times daily as needed for Constipation 20 capsule 1 01/17/2021 Active acetaminophen (TYLENOL) 500 MG tablet Take 2 (two) tablets by mouth every 6 hours as needed for Pain Maximum allowable Acetaminophen amount = 4 Grams (4000 mg) / 24 hours. 80 tablet 01/17/2021 Active nitrofurantoin monohyd macro crystals (MACROBID) 100 MG capsule Take 1 (one) capsule by mouth once daily 6 capsule 01/17/2021 Active Additional Information Patient not taking.Reported on 03/09/2021 phenazopyridine (PYRIDIUM) 200 MG tablet One tablet by mouth every 8 hours as needed for bladder pain and bladder spasms 30 tablet 01/18/2021 Active Additional Information Patient not taking.Reported on 03/09/2021 Multiple Vitamins-Minerals (MULTIPLE VITAMINS/WOMENS PO) Take 1 capsule by mouth once daily Active FLUoxetine (PROzac) 10 MG tablet Take 3 (three) tablets by mouth once daily Active lamoTRIgine (LaMICtal) 100 MG tablet Take 1 (one) tablet by mouth 2 times daily Active busPIRone (Buspar) 15 MG tablet Take 1 (one) tablet by mouth 2 times daily Active Active Problems Problem Noted Date Diagnosed Date Bladder dysfunction 12/15/2020 Assessment & Plan (12/15/2020 4:52 PM CDT): A&P - bladder and bowel dysfunction. Joanie has a history of dysuria and episodes of time with s/s of urinary tract infections. Records review does not review any culture positive urine cultures. Joanie has a long history of periodic constipation and currently is having more significant issues with constipation. Exam is grossly normal. 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 She would likely benefit from an improved bowel routine. Continued follow up recommended pending results from bowel cleanout. Plana: Urinary recommendations including: voiding posture and relaxation techniques, bladder dietary and fluid intake recommendations, hygiene recommendations, Bowel health recommendations, Bowel cleanout, followed by maintenance: daily miralax, Pharmaceutical management: Miralax and Consider PFT for continued concerns. Fracture 03/18/2018 Pain of left hand 03/18/2018 Flat feet 04/02/2017 Left wrist injury 11/27/2016 Left ankle pain 07/28/2015 Injury of left foot 06/07/2015 Chronic pain of left ankle Depression GERD (gastroesophageal reflux disease) Immunizations Name Administration Dates Next Due Covid Pfizer primary monoval ent 12+ yr 0.3mL Purple cap 11/08/2020,09/28/2020 Family History Medical History Relation Name Comments Allergies Father Asthma Father CAD (Coronary Artery Disease) Father Diabetes - Type 2 Father Hyperlipidemia Father Hyperlipidemia Maternal Grandfather Cancer - Breast Maternal Grandmother Hypertension Maternal Grandmother Allergies Mother Asthma Mother Cancer - Ovarian Mother Cancer - Uterine Mother Depression Mother Diabetes - Type 2 Mother Hyperlipidemia Mother Hypertension Mother Hypertension Paternal Grandmother Childhood resp disease Sister Relation Name Status Comments Father Maternal Grandfather Maternal Grandmother Mother Paternal Grandmother Sister Social History Tobacco Use Types Packs/Day Years Used Date Smoking Tobacco: Never Smokeless Tobacco: Never Tobacco Cessation:Counseling Given: No Alcohol Use Standard Drinks/Week Comments Not Currently 0 (1 standard drink = 0.6 oz pur e alcohol) Salol Depression Scale Answer Date Recorded Salol Depression Scale Total 18 08/01/2022 The thought of harming myself has occurred to me . Hardly ever 08/01/2022 Sex and Gender Information Value Date Recorded Sex Assigned at Female 09/25/2020 12:43 PM CDT Gender Identity Female 09/25/2020 12:43 PM CDT Sexual Orientation Bisexual 09/25/2020 12 :43 PM CDT Last Filed Vital Signs Vital Sign Reading Time Taken Comments Blood Pressure 133/73 08/01/2022 10:59 AM POWER SAW OPERATOR Pulse 88 08/01/2022 10:59 AM POWER SAW OPERATOR Temperature 36.3 C (97.3 F) 01/17/2021 10:15 AM CDT Respiratory Rate 14 01/17/2021 11:25 AM CDT Oxygen Saturation 98% 01/17/2021 11:25 AM CDT Inhaled Oxygen Concentration - - Weight 84.6 kg (186 lb 6.4 oz) 08/01/2022 10:59 AM POWER SAW OPERATOR Height 172.7 cm (5' 8 ) 08/01/2022 10:59 AM POWER SAW OPERATOR Body Mass Index 28.34 08/01/2022 10:59 AM POWER SAW OPERATOR Plan of Treatment Health Maintenance Due Date Last Done Comments HIV SCREENING 2018 HPV VACCINE (1 - 3-dose series) 2018 CHLAMYDIA/GONORRHEA SCREENING 2019 MENINGOCOCCAL (Group B) VACCINE (1 of 2 - Standard) 2019 HEPATITIS C SCREENING 06/07/2021 DTAP/TDAP/TD VACCINES (1 - Tdap) 2022 HEPATITIS B VACCINE (1 of 3 - 19+ 3-dose series) 2022 COVID-19 VACCINE (3 - season) 2024 11/08/2020, 09/28/2020 INFLUENZA VACCINE (#1) 2024 6, 03/31/2015, 04/29/2014, Additional history exists DEPRESSION SCREENING 06/24/2024 PAP SMEAR 07/06/2025 07/06/2022, 03/24, 11/09/2020, Additional history exists ZOSTER VACCINE (1 of 2) 2053 HIB VACCINE Aged Out No longer eligi ble based on patient's age to complete this topic MENINGOCOCCAL VACCINE Aged Out No [place] venice eligible based on patient's age to complete this topic PNEUMOCOCCAL VACCINE Aged Out No long er eligible based on patient's age to complete this topic Care Teams Service Consultant Relationship Specialty Start Date End Date Franca Monroy PA-C [address] [place] [phone] PCP - General Physician Mva Operator 12/15/20
--- OUTSIDE RECORDS SUMMARY | 2024-08-26 12:46 | XMS_ITS | Encounter Summary ---
Author Organization [facility] Address [address] [place] [address] Phone Care Team Providers Care [employer] Media Specialist Name Role Phone Ondina Chacko Primary Care Provider + Reason for Visit * Reason Comments Medication Refill Encounter Details Date Type Department Care Team (Late st Contact Info) Description 09/29/2021 Refill [facility] [address] [place] [address] Ondina Chacko PAC [address] [place] [address] Medication Refill Social History Tobacco Use Types Packs/Day Years Used Date Smoking Tobacco: Never Smokeless Tobacco: Never Alcohol Use Standard Drinks/Week Comments Yes 0 (1 standard drink = 0.6 oz pur e alcohol) occasiionally PHQ-2 Answer Date Recorded Total Score - Questions 1-9 13 10/0 09/2020 Sexually Active Control Partners Comments Yes None Male Comments No Sex and Gender Information Value Date Recorded Sex Assigned at Not on file Legal Sex Female 8:52 PM CDT Gender Identity Not on file Sexual Orientation Not on file documented as of this encounter Miscellaneous Notes * Telephone Encounter - Shira John - 10/02/2021 3:14 PM CDT Called patient made appt for 10/06 at 1130. * Telephone Encounter - Ondina Chacko PAC - 09/29/2021 5:32 PM CDT Refuse needs office visit * Telephone Encounter - Chelsea Carrillo RN - 09/29/2021 1:41 PM CDT I do not see that you have prescribed this for patient in past. There is no refill record on PDMP Medication failed the protocol, provider to review and approve the medication order if appropriate. Requested Prescriptions Pending Prescriptions Disp Refills LORazepam (ATIVAN) 1 MG Tablet [Pharmacy Med Name: LORAZEPAM 1MG TABLET] 30 Tablet 3 Sig: TAKE 1 TABLET BY MOUTH EVERY DAY NEEDED Not Delegated - Benzodiazepines Protocol Failed - 09/29/2021 12:36 PM Failed - This refill cannot be delegated Passed - Visit with relevant provider in past 12 months or upcoming 90 days Recent Visits Date Type Provider Dept 06/26/21 Office Visit Ondina Chacko PAC [facility] 04/10/21 Office Visit Ondina Chacko [facility] 03/27/21 Office Visit Ondina Chacko PAC [facility] Showing recent visits within past 365 days and meeting all other requirements Future Appointments No visits were found meeting these conditions. Showing future appointments within next 90 days and meeting all other requirements documented in this encounter Plan of Treatment Not on file documented as of this encounter Visit Diagnoses Not on filedocumented in this encounter Additional Health Concerns Assessment Noted Time PHQ-9 Depression Total Score: 13 021 2:52 PM CDT documented as of this encounter Care Teams [employer] Media Specialist Relationship Specialty Start Date End Date Ondina Chacko PAC [address] [place] [address] PCP - General Physician Jet Worker 03/27/21 06/27/24 documented as of this encounter
--- OUTSIDE RECORDS SUMMARY | 2024-08-26 12:46 | XMS_ITS | Clinical Summary ---
Author Organization [facility] Address [address] [place] [address] Phone Care Team Providers Care Chili Powder Mixer Name Role Phone Unavailable Primary Care Provider Unavailabl e Allergies Active Allergy Reactions Criticality Noted Date Comments Bee Venom Anaphylaxis High 11/29/2015 Wasp Venom Anaphylaxis High 11/29/2015 Medications ibuprofen (MOTRIN) 600 MG Tablet Take 600 mg by mouth. 1 Active LORazepam (ATIVAN) 1 MG Tablet Take 1 mg by mouth. 1 Active Norethin-Eth Estrad-Fe Biphas (Lo Loestrin Fe) 1 MG-10 MCG / 10 MCG Tablet 1 Active Multiple Vitamins-[place] als (WOMENS MULTI PO) Take 1 Capsule by mouth. Active FLUoxetine (PROzac) 10 MG Capsule TAKE 1 CAPSULE BY MOUTH DAILY. 90 Capsule 1 Active EPINEPHrine (EpiPen 2-Bogdan) 0.3 MG/0.3ML Solution Auto-injector 0.3 mL by Intramuscular route once as needed for Anaphylaxis for up to 1 dose. 1 mL 2 Active methylPREDNISo lone (MEDROL DOSPACK) 4 MG Tablet Therapy Pack Use as per instructions on package. 1 Dose Pack 2 Active Additional Information Patient not taking.Reported on 01/17/2022 venlafaxine (EFFEXOR-XR) 37.5 MG CAPSULE SR 24 HRIndications: Anxiety Take 1 Capsule by mouth daily. 90 Capsule 1 2 Active Additional Information Patient not taking.Reported on 01/17/2022 lamoTRIgine (LaMICtal) 25 MG Tablet Take 2 Tablets by mouth daily. 180 Tablet 1 2 Active busPIRone (BUSPAR) 15 MG Tablet Take 1 Tablet by mouth daily. 90 Tablet 1 2 Active predniSONE (DELTASONE) 50 MG Tablet Take 1 Tablet by mouth daily. 5 Tablet 2 Active Additional Information Patient not taking.Reported on 01/17/2022 albuterol 108 (90 Base) MCG/ACT Aerosol Solution take 2 Puffs by inhalation every 6 hours as needed for Wheezing or Cough. 8 g 2 Active Additional Information Patient not taking.Reported on 01/17/2022 lurasidone (Latuda) 40 MG Tablet Take by mouth. Once daily Active Pseudoeph-CPM- DM-APAP (TYLENOL COLD & FLU DAY/NIGHT PO) Take by mouth. 2 tabs every 4-6 hours as needed Active Active Problems Problem Noted Date Diagnosed Date SUSAN (generalized anxiety disorder) 02/13/2022 Anxiety 04/04/2021 Depression 04/04/2021 Immunizations Immunization Administration Dates Next Due Covid-19, Mrna, Lnp-s, Pf, 3 0 Mcg/0.3 Ml Dose (BodyGuardz) 09/28/2020 DTAP VACCINE 02/17/2008,09/06/2004 DTAP/HEPB/IPV Vaccine 2003,2003,06/26 Hepatitis A, Pediatric, Unsp ecified Formulation 12/07/2008,02/17/2008 Hepatitis B Vaccine 08/12/2023 Hepatitis B Vaccine, Pediatric/adolescent 2003 Hib Vaccine,unspecified Formulation 08/22,2003,2003,07/23 Human Papillomavirus (HPV) 9 -valent Vaccine 07/23/2016,03/22/2016,01/20/2016 Inactivated Polio Vaccine 02/17/2008 Influenza Vaccine 04/02/2012,08/30/2011 Influenza Vaccine Quadrivalent Nasal 04/29/2014 Influenza Vaccine, Quadrivalent, PF 07/25,03/22/2016,03/31/2015,05/14 Influenza Vaccine,unspecifie d Formulation 04/25/2007,07/16/2006,06/14/2006 MMR Vaccine 02/17/2008,09/06/2004 Meningococcal Vaccine 01/05/2015 Pneumococcal Vaccine Peds - 7 Valent ,2003,2003,07/23 TDAP Vaccine 06/18/2013 Varicella Vaccine Live 02/17/2008,06/13/2004 Family History Medical History Relation Name Comments Diabetes Father Hypertension Father Anxiety disorder Mother Bipolar Disorder Mother Depression Mother Relation Name Status Comments Father Mother Social History Tobacco Use Types Packs/Day Years Used Date Smoking Tobacco: Never Smokeless Tobacco: Never Tobacco Cessation:Counseling Given: No Alcohol Use Standard Drinks/Week Comments Yes 0 (1 standard drink = 0.6 oz pure alcohol) 3 times a week drink 2-4 wine coolers PHQ-2 Answer Date Recorded Total Score - Questions 1-9 13 09/2020 Sexually Active Control Partners Comments Not Currently None Male, Female raped on Comments No Sex and Gender Information Value Date Recorded Sex Assigned at Not on file Legal Sex Female 8:52 PM CDT Gender Identity Not on file Sexual Orientation Not on file Last Filed Vital Signs Vital Sign Reading Time Taken Comments Blood Pressure 118/82 07/01/2021 10:30 PM ENVIRONMENTAL QUALITY ANALYST Pulse 108 07/01/2021 10:30 PM ENVIRONMENTAL QUALITY ANALYST Temperature 37.5 C (99.5 F) 07/01/2021 9:28 PM ENVIRONMENTAL QUALITY ANALYST Respiratory Rate 15 07/01/2021 10:30 PM ENVIRONMENTAL QUALITY ANALYST Oxygen Saturation 99% 07/01/2021 10:30 PM ENVIRONMENTAL QUALITY ANALYST Inhaled Oxygen Concentration - - Weight 95.3 kg (210 lb) 07/01/2021 9:28 PM ENVIRONMENTAL QUALITY ANALYST Height 172.7 cm (5' 8 ) 07/01/2021 9:28 PM ENVIRONMENTAL QUALITY ANALYST Body Mass Index 31.93 07/01/2021 9:28 PM ENVIRONMENTAL QUALITY ANALYST Plan of Treatment Health Maintenance Due Date Last Done Comments Meningococcal B Immunization (1 of 2 - Standard) 2019 Influenza Immunization (#1) 02/23/202407/25, 03/22/2016, 03/31/2015, Additional history exists SARS-COV-2 Immunization ( season) 2024 11/08/2020, 09/28/2020 Pap Smear 2024 DTaP/Tdap/Td Immunization (8 - Td or Tdap) 02/05/2033 02/05/2023, 06/18/2013, 02/17/2008, Additional history exists Respiratory Syncytial Virus (RSV) Immunization (Adult) (1 - 1-dose 75+ series) 2078 Pneumococcal Immunization Combined Aged Out 09/06/2004, 2003, 2003, Additional history exists No longer eligible based on patient's age to complete this topic Measles Mumps Rubella (MMR) Immunization Discontinued 02/17/2008, 09/06/2004 Polio (IPV) Immunization Discontinued 008, 2003, 2003, Additional history exists Varicella Immunization Discontinued 02/17/2008, 2003 Hepatitis A Immunization Discontinued 12/07/2008, 01/23 Meningococcal Immunization (ACWY) Aged Out 01/05/2015 No longer eligible based on patient's age to complete this topic Human Papillomavirus (HPV) Immunization Completed 07/23/2016, 03/22/2016, 01/20/2016 Hepatitis C Virus (HCV) Screening Completed 07/16/2022, 12/26/2021, 11/13/2021 Hepatitis B Immunization Completed 024, 2003, 2003, Additional history exists Rotavirus Immunization Aged Out No lo nger eligible based on patient's age to complete this topic Goals Goal Patient Goal Type Associated Problems Recent Progress Patient-Stated? Author better coping mechanisms Behavioral Health On track( 3:59 PM ENVIRONMENTAL QUALITY ANALYST) Yes Lashay Haley LCSW increased coping skills Behavioral Health On track( 3:59 PM ENVIRONMENTAL QUALITY ANALYST) No Lashay Haley LCSW Note: Goal/Objective: Improve coping skills. Anticipated Time Frame for Goal Completion: 6 months Goal Reviewed with: patient Readiness to change: Ready to change Department associated with goal: [facility] Steps to achieve goal: will identify at least two coping skills/activities/habits that have helped to manage anxiety in the past. will identify at least three new coping skills/activities/habits that may help to prevent and/or cope with anxiety. 3. will identify a plan to implement coping skills and follow this plan for two weeks and evaluate the impact on anxiety 4. Will attend individual and/or group therapy at least 1x/month at least 6 sessions Insurance MEDICAID [facility] MEDICAID [facility]
--- OUTSIDE RECORDS SUMMARY | 2024-08-26 12:46 | XMS_ITS | Clinical Summary ---
Author Organization [address] Address [address] [place] [address] Care Team Providers Care Plant Quality Manager Name Role Phone Ondina Chacko Primary Care Provider [phone] Allergies Active Allergy Reactions Criticality Noted Date Comments Red Dye Rash Medium 04/02/2022 Venom-Honey Bee Anaphylaxis High 11/29/2015 Wasp Venom Anaphylaxis High 11/29/2015 Medications busPIRone (BUSPAR) 15 mg tablet Take 15 mg by mouth 2 (two) times a day 05/08/2021 Active venlafaxine XR (EFFEXOR-XR) 37.5 mg 24 hr capsule Take 37.5 mg by mouth daily 04/10/2021 Active lamoTRIgine (LaMICtal) 25 mg tablet Take 50 mg by mouth daily 05/05/2021 Active FLUoxetine (FLUoxetine) 10 mg tablet/capsule Take 10 mg by mouth daily 01/09/2021 Active guaiFENesin ER (MUCINEX) 600 mg 12 hr tablet Take 2 tablets (1,200 mg total) by mouth 2 (two) times a day for 10 days 40 tablet 05/22/2023 Active Active Problems Problem Noted Date Diagnosed Date Threatened miscarriage in early 2021 Urinary tract infection in female 06/10/2022 Surgical History Surgery Date Site/Laterality Comments VAGINA SURGERY 02/22/2021 - 03/23/2021 Cyst removal Medical History Medical History Date Comments Anxiety Depression Family History Medical History Relation Name Comments Bipolar disorder Brother Diabetes Father Heart attack Father Breast cancer Maternal Grandmother Bipolar disorder Mother Cervical cancer Mother Cancer Other 1 Cancer, unknown ; Diabetes type II Other 2 Diabetes me llitus type 2; Arthritis Other 3 Arthritis; Hypertension Other 4 Hypertension; Mental illness Other 5 Mental illnes s; Diabetes Paternal Grandmother Relation Name Status Comments Brother Father Maternal Grandmother Mother Other 1 Other 2 Other 3 Other 4 Other 5 Paternal Grandmother Social History Tobacco Use Types Packs/Day Years Used Date Smoking Tobacco: Never Smokeless Tobacco: Never Tobacco Cessation:Counseling Given: Not Answered Alcohol Use Standard Drinks/Week Comments Yes 0 (1 standard drink = 0.6 oz pur e alcohol) Personal Safety Answer Date Recorded Have you ever been in or are you currently in a harmful physical or emotional relationship or is someone making you feel afraid or unsafe? Denies 05/22/2023 Comments No Sex and Gender Information Value Date Recorded Sex Assigned at Not on file Legal Sex Female 3:38 AM POWER PLANT MECHANIC Gender Identity Not on file Sexual Orientation Not on file Obstetrics History Para Term AB IAB SAB Ectopic Multiple Livin g Live Births 1 Date Outcome GA Total Labor Labor/2nd/3rd Weight Sex Type Anes PTL Venessa A1 A5 Name Clin Last Filed Vital Signs Vital Sign Reading Time Taken Comments Blood Pressure 137/64 08/31/2023 10:55 PM POWER PLANT MECHANIC Pulse 107 08/31/2023 10:55 PM POWER PLANT MECHANIC Temperature 37.3 C (99.1 F) 08/31/2023 10:55 PM POWER PLANT MECHANIC Respiratory Rate 16 08/31/2023 10:55 PM POWER PLANT MECHANIC Oxygen Saturation 100% 08/31/2023 10:55 PM POWER PLANT MECHANIC Inhaled Oxygen Concentration - - Weight 97.5 kg (215 lb) 08/31/2023 10:55 PM POWER PLANT MECHANIC Height 172.7 cm (5' 8 ) 08/31/2023 10:55 PM POWER PLANT MECHANIC Body Mass Index 32.69 08/31/2023 10:55 PM POWER PLANT MECHANIC Plan of Treatment Health Maintenance Due Date Last Done Comments Cervical Cancer Screening 2003 Depression Screening 2003 Hepatitis C Screening 2003 Meningococcal B Vaccine (1 of 2 - Standard) 2019 Regular Well Visit/Exam 18-64 2021 DTaP/Tdap/Td Vaccine (7 - Td or Tdap) 06/18/2023 06/18/2013, 02/17/2008, 09/06/2004, Additional history exists Covid-19 Vaccine ( season) 2024 11/08/2020, 09/28/2020 Influenza Vaccine (#1) 2024 , 03/22/2016, 03/31/2015, Additional history exists Pneumococcal vaccine <65 Completed 005, 2003, 2003, Additional history exists Varicella Vaccines Completed 02/17/2008, 06/13/2004 Meningococcal Vaccine Aged Out 01/05/2015 No del[place] venice eligible based on patient's age to complete this topic HPV Vaccines Completed 07/23/2016, 02/23, 01/20/2016 Hepatitis B Screening Completed 08/12/2023 , 2003, 2003, Additional history exists Insurance [facility] [place] [address] Care Teams Plant Quality Manager Relationship Specialty Start Date End Date Ondina Chacko PA [address] [phone] PCP - General Seismic Computer 06/10/22
--- OUTSIDE RECORDS SUMMARY | 2024-08-26 12:46 | XMS_ITS | Patient Health Summary ---
Author Organization [facility] Address [address] [place] [address] Care Team Providers Care Cotton Candy Maker Name Role Phone Franca Monroy PA-C Primary Care Provider Note from [facility],non-owned Affiliates and Associated Physician Practices is amultiple site organization consisting of ambulatory clinics and hospital sitesin [place], [place], [place] and [place]. This disclosure is being madepursuant to the Care Everywhere program and may not contain all information available regarding this patient. Last updated 18.[facility] Allergies * Bee(Anaphylaxis) -High Criticality * Wasp Venom(Anaphylaxis) -High Criticality Medications * Be aware that medications may not be up to date on this document. Alwaysverify current medications with the patient. * EPIPEN 2-MISTY 0.3 MG/0.3ML auto-injector pen(Started 05/05/2015) 2 refills left * venlafaxine XR 24hr (EFFEXOR XR) 75 MG capsule(Started 08/30/2017) TK 1 C PO QD 2 refills left * busPIRone (BUSPAR) 5 MG tablet(Started 07/13/2020) * LORazepam (ATIVAN) 1 MG tablet(Started 08/26/2020) Take 1 mg by mouth as needed * FLUoxetine (PROZAC) 10 MG capsule(Started 01/09/2021) Take 10 mg by mouth once daily * ibuprofen (MOTRIN) 600 MG tablet(Started 01/17/2021) Take 1 (one) tablet by mouth every 6 hours as needed for Pain * docusate sodium (COLACE) 100 MG capsule(Started 01/17/2021) Take 1 (one) capsule by mouth 2 times daily as needed for Constipation 1 refill by 01/17/2022 * acetaminophen (TYLENOL) 500 MG tablet(Started 01/17/2021) Take 2 (two) tablets by mouth every 6 hours as needed for Pain Maximum allowable Acetaminophen amount = 4 Grams (4000 mg) / 24 hours. * nitrofurantoin monohyd macro crystals (MACROBID) 100 MG capsule(Started 01/17/2021) Take 1 (one) capsule by mouth once daily * phenazopyridine (PYRIDIUM) 200 MG tablet(Started 01/18/2021) One tablet by mouth every 8 hours as needed for bladder pain and bladder spasms * Multiple Vitamins-Minerals (MULTIPLE VITAMINS/WOMENS PO) Take 1 capsule by mouth once daily * FLUoxetine (PROzac) 10 MG tablet Take 3 (three) tablets by mouth once daily * lamoTRIgine (LaMICtal) 100 MG tablet Take 1 (one) tablet by mouth 2 times daily * busPIRone (Buspar) 15 MG tablet Take 1 (one) tablet by mouth 2 times daily Active Problems Problem Noted Date Diagnosed Date Bladder dysfunction 12/15/2020 Fracture 03/18/2018 Pain of left hand 03/18/2018 Flat feet 04/02/2017 Left wrist injury 11/27/2016 Left ankle pain 07/28/2015 Injury of left foot 06/07/2015 Chronic pain of left ankle Depression GERD (gastroesophageal reflux disease) Immunizations * Covid Pfizer primary monovalent 12+ yr 0.3mL Purple cap(Given 11/08/2020, 09/28/2020) Social History Tobacco Use Types Packs/Day Years Used Date Smoking Tobacco: Never Smokeless Tobacco: Never Tobacco Cessation:Counseling Given: No Alcohol Use Standard Drinks/Week Comments Not Currently 0 (1 standard drink = 0.6 oz pur e alcohol) Cory Depression Scale Answer Date Recorded Cory Depression Scale Total 18 08/01/2022 The thought [...] Comments Blood Pressure 133/73 08/01/2022 10:59 AM PROCESS CONTROL TECHNICIAN Pulse 88 08/01/2022 10:59 AM PROCESS CONTROL TECHNICIAN Temperature 36.3 C (97.3 F) 01/17/2021 10:15 AM CDT Respiratory Rate 14 01/17/2021 11:25 AM CDT Oxygen Saturation 98% 01/17/2021 11:25 AM CDT Inhaled Oxygen Concentration - - Weight 84.6 kg (186 lb 6.4 oz) 08/01/2022 10:59 AM PROCESS CONTROL TECHNICIAN Height 172.7 cm (5' 8 ) 08/01/2022 10:59 AM PROCESS CONTROL TECHNICIAN Body Mass Index 28.34 08/01/2022 10:59 AM PROCESS CONTROL TECHNICIAN Procedures * SONOGRAM - COMPLETE(Performed 10/29/2022) Performed for Encounter for follow-up ultrasound of anatomy ([facility]), Encounter for screening for cervical length ([facility]) * SONOGRAM - COMPLETE(Performed 09/28/2022) Performed for Encounter for follow-up ultrasound of anatomy ([facility]), Encounter for screening for cervical length ([facility]) * SONOGRAM - COMPLETE(Performed 08/31/2022) Performed for Encounter for anatomic survey ([facility]), 16 weeks gestation of ([facility]) * SONOGRAM - COMPLETE(Performed 08/01/2022) Performed for Medication exposure during first trimester of ([facility]), 12 weeks gestation of ([facility]) * CULTURE YEAST(Performed 03/24/2021) Performed for Postop check * US RETROPERITONEAL COMPLETE(Performed 02/02/2021) Performed for Duplicated ureter, left * CARDIAC RHYTHM STRIP ORDER(Performed 01/19/2021) * PATHOLOGY TISSUE EXAM (STL)(Performed 01/17/2021) Performed for Diagnosis unknown * LARYNGEAL MASK AIRWAY(Performed 01/17/2021) * HCG URINE QUAL POCT NOTIFICATION(Performed 01/17/2021) Performed for [place]'s gland abscess * MARSUPIALIZATION/EXCISION BARTHOLIN'S GLAND/CYST(Performed 01/17/2021) Performed for Diagnosis unknown * TN CYSTOURETHROSCOPY(Performed 01/17/2021) Performed for Diagnosis unknown * HCG URINE QUALITATIVE - POCT (IP) INTERFACED(Performed 01/17/2021) * CALCIUM/CREAT RATIO URINE RANDOM PANEL(Performed 12/15/2020) Performed for Bladder dysfunction * URINALYSIS W/MICROSCOPIC NO CULTURE(Performed 12/15/2020) Performed for Bladder dysfunction * CULTURE URINE(Performed 12/15/2020) Performed for Bladder dysfunction * US KIDNEYS W BLADDER(Performed 12/15/2020) Performed for Recurrent UTI * CARDIAC EKG ORDER(Performed 11/10/2019) * XR HAND LEFT 3VW OR MORE(Performed 03/18/2018) Performed for Fracture * XR HAND LEFT 3VW OR MORE(Performed 12/11/2016) Performed for Left wrist injury, subsequent encounter * FERRITIN(Performed 03/16/2016) Performed for Chronic pain of left ankle * IRON + TRANSFERRIN PANEL(Performed 03/16/2016) Performed for Chronic pain of left ankle * VITAMIN D 25-HYDROXY(Performed 03/16/2016) Performed for Chronic pain of left ankle * RONY BLOOD SCREEN W/REFLEX TITER(Performed 03/16/2016) Performed for Chronic pain of left ankle * RHEUMATOID FACTOR BLOOD SCREEN(Performed 03/16/2016) Performed for Chronic pain of left ankle * COMPREHENSIVE METABOLIC PANEL(Performed 03/16/2016) Performed for Chronic pain of left ankle * CBC W AUTO DIFFERENTIAL(Performed 03/16/2016) Performed for Chronic pain of left ankle Results * SONOGRAM - COMPLETE (10/29/2022 7:36 AM CDT) Only the most recent of4 resultswithin the time period is included. Anatomical Region Laterality Modality Other 10/29/2022 7:36 AM CDT Narrative 10/29/2022 9:45 AM CDT ANTOINETTE [facility]leg[facility] PHONE: FAX: Pat. Name: JOANIE CHOPRA Pat. No: [id number] Study Date: 10/29/2022 7:36am , Age: 10 2005, 17 Pregnancies: 3, Para 0020 Height: 68 in Weight: 183 lb LMP: 05/06/2022 GA by LMP: 25w1d GA by Base: 25w1d SHANNON: 02/10/2023 GA by US: 25w4d SHANNON: 02/07/2023 GA Selected: 25w1d (LMP) SHANNON: 02/10/2023 Referring MD: Zay Hung MD Systems Engineer: Monet Quintana, [facility], RD CPT4: 07966 BMI: 27.82 Hist/Ind: G1: SAB G2: IAB G3: Medication exposure (lamotrigine, fluoxetine, buspirone) for anxiety & depression, reportedly low-risk cf-DNA, UTD-A1 MEASUREMENTS & AGE GROWTH EVALUATION Measurement GA Range Srce %for GA Ratios ----- ---- ------- BPD 6.5 cm 26w3d (34g3b-80i2e) Hadl BPD 82% FL/BPD 0.71 (0.71 - 0.87) HC 23.9 cm 26w0d (42w5z-05y5b) Hadl HC 61% FL/AC 0.21 (0.20 - 0.24) AC 22.3 cm 26w5d (43t8p-52h6c) Hadl AC 86% HC/AC 1.07 (1.01 - 1.20) FL 4.6 cm 25w3d (55l6p-01g2e) Hadl FL 46% CI 0.78 (0.70 - 0.86) HL 4.3 cm 25w6d (45h9k-64y5o) Graeme HL 61% GA for sonogram 25w4d (96j8z-25n6e) Weight Estimate: based on (BPD,HC,AC,FL) Hadlock Weight: 900 gm (768-1031gm) Hadlo : 1lbs, 15oz Normal: 798 gm (599-997gm) Hadloc Wt% 84% for 25w1d Heart Rate: 146 bpm Amniotic Fluid Index: 04.4cm (Deepest Pocket) EVAL, PLACENTA Presentation: cephalic Placenta: posterior Heart Rate: 146 bpm Amniotic Fluid Volume: normal Anatomy!Normal!Abnormal!Suboptimal!Prev. Seen!Comments Cranium ! ! ! ! x ! Mdl (CSP/Thal! ! ! ! x ! Ventricles ! ! ! ! x ! Choroid Plexu! ! ! ! x ! Cerebellum ! ! ! ! x ! Cisterna M. ! ! ! ! x ! Nuchal Fold ! ! ! ! x ! Orbits ! ! ! ! x ! Profile ! ! ! ! x ! Nasal Bone ! ! ! ! x ! Lip ! ! ! ! x ! Spine ! ! ! ! x ! Lungs ! ! ! ! x ! 4 Chamber Hea! ! ! ! x ! LVOT ! ! ! ! x ! RVOT ! ! ! ! x ! 3 Vessel View! ! ! ! x ! 3 Vessel Trac! ! ! ! x ! Cross-over ! ! ! ! x ! Ductal Arch ! ! ! ! x ! Aortic Arch ! ! ! ! x ! Caval View ! ! ! ! x ! Situs ! ! ! ! x ! Diaphragm ! ! ! ! x ! Stomach ! x ! ! ! x ! Bowel ! ! ! ! x ! Kidneys ! ! x ! ! x !AP renal pelvis: RT = 4.4 mm & LT = 5.6 mm (normal < 4.0 mm) Bladder ! x ! ! ! x ! 3 Vessel Cord! ! ! ! x ! Cord In! ! ! ! x ! Upper Extremi! ! ! ! x ! Hands ! ! ! ! x ! Lower Extremi! ! ! ! x ! Feet ! ! ! ! x ! External Jocelyn! ! ! ! x ! Placental Cor! ! ! ! x ! CLINICAL SUMMARY IMPRESSION: Single, live, intrauterine at 25w1d size is within normal limits Amniotic fluid volume: within normal limits Isolated mild bilateral urinary tract dilation (UTD) RECOMMEND: Ultrasound growth and to reassess the kidneys @ 32 weeks Thank you for allowing us the opportunity to care for your patient Eduard Meier MD <Electronic Signature> 10/29/2022 09:45am R Elliot Hung MD [facility] ORDERABLES * CULTURE YEAST (03/24/2021 4:00 AM CDT) Pathologist [facility] [place] Culture Yeast with ID [facility] Comment: CULTURE, YEAST, W/IDENTIFICATION Micro Number: [id number] Test Status: Final Specimen Source: Vulva Specimen Quality: Adequate Result: No fungal growth at 2 Weeks NO COLLECTION DATE RECEIVED. WE HAVE USED THE DATE THE SPECIMEN WAS RECEIVED BY THIS LABORATORY THE COLLECTION DATE. IF THIS IS INCORRECT, PLEASE CONTACT CLIENT SERVICES. PHONE NUMBER: [phone] Test Performed at: [facility] [address] [place] [address] SACHIN WALDEN MD Microbiology ENTIRE VULVA / Unknown 03/10/2021 2:49 AM CDT Peace Jones MD LAB - MICROBIOLOGY ORDERABLES [facility] [id number] [place] [address] * US RETROPERITONEAL COMPLETE (02/02/2021 10:55 AM CDT) Anatomical Region Laterality Modality Abdomen Ultrasound 02/02/2021 11:3 4 AM CDT Narrative 02/02/2021 11:55 AM CDT RENAL ULTRASOUND HISTORY: Recurrent urinary tract infections and history of duplicated left collecting system. The right kidney measures 9.9 cm. The left kidney measures 12.7 cm. Findings again suggestive of duplicated collecting system on the left are present and unchanged. The renal cortical echotexture is normal. There is no evidence of hydronephrosis or obstructive uropathy. The bladder is normal. Normal ureteral jets are present. DIAGNOSIS: Grossly normal examination without obstructive uropathy as described. Edited by Shy Colby on 02/02/2021 11:43 AM *Reading Radiologist: Henrique Ford on 02/02/2021 at 11:55 AM Procedure Note Henrique Ford MD - 02/02/2021 RENAL ULTRASOUND HISTORY: Recurrent urinary tract infections and history of duplicated left collecting system. The right kidney measures 9.9 cm. The left kidney measures 12.7 cm. Findings again suggestive of duplicated collecting system on the left are present and unchanged. The renal cortical echotexture is normal. There is no evidence of hydronephrosis or obstructive uropathy. The bladder is normal. Normal ureteral jets are present. DIAGNOSIS: Grossly normal examination without obstructive uropathy as described. Edited by Shy Colby on 02/02/2021 11:43 AM *Reading Radiologist: Henrique Ford on 02/02/2021 at 11:55 AM Peace Jones MD US ORDERABLES * CARDIAC RHYTHM STRIP ORDER (01/19/2021 11:02 AM CDT) Narrative 01/19/2021 11:02 AM CDT Ordered by an unspecified provider. Scanned Document CARDIAC SERVICES ORD ERABLES * PATHOLOGY TISSUE EXAM (STL) (01/17/2021 8:50 AM CDT) Case Report Surgical Pathology Report Case: [id number] Authorizing Provider: Peace Jones MD Collected: 01/17/2021 08:50 AM Ordering Location: [facility] Received: 01/17/2021 10:53 AM Pathologist: Jo-Ann Banegas MD Specimen: Tissue, [place]'s Gland 01/18/2021 5:52 PM CDT [facility] Final Diagnosis [place]'s gland, excision: - Chronic inflammation 01/18/2021 5:52 PM CDT [facility] Clinical History The patient is a 15-year-old woman who presented with vaginal cyst since 2 years. Operative procedure: Excision of [place]'s gland abscess. 01/18/2021 5:52 PM CDT [facility] Gross Description Requisition and specimens identified with patient's name and date of . Received in formalin, specimen a [place]'s gland consists of a single fragment of pink-polk fibrous tissue measuring 1.5 x 0.5 x 0.2 cm. The specimen is serially sectioned and entirely submitted in cassette A1. AR 01/18/2021 5:52 PM CDT [facility] Microscopic Description Microscopic examination substantiates the final diagnosis. 01/18/2021 5:52 PM CDT [facility] Disclaimer All histochemical and/or immunohistochemical results are interpreted with controls that demonstrate appropriate staining reactions before reporting results. Note on use of immunocytochemistry reagents: This test was developed and its performance characteristic determined by [facility], Department of Laboratory Medicine. It has not been cleared or approved by the U.S. Food and Drug Administration (FDA). The FDA has determined that such clearance or approval is not necessary. The test is used for clinical purpose. It should not be regarded as investigational or for research. This laboratory is certified to perform high complexity testing. The performance characteristics of the IHC/JUAN assays have been validated on formalin-fixed paraffin embedded tissues only. The assays have not been validated on decalcified tissues. Results should be interpreted with caution. 01/18/2021 5:52 PM CDT [facility] Embedded Images 01/18/2021 5:52 PM CDT [facility] Pathology/Cytolo gy TISSUE SPECIMEN / Unknown 01/17/2021 8:50 AM CDT 01/17/2021 10:53 AM CDT Comment:Pre-op diagnosis: Diagnosis unknown [R69] Peace Jones MD LAB - PATHOLOGY/CYT OLOGY ORDERABLES Performing Organization Address [facility] Co de Phone Number [facility] [address] [place] [address] * LARYNGEAL MASK AIRWAY (01/17/2021 7:54 AM CDT) Narrative Cinthya Shook APRN-TWENTY ONE DEALER - 01/17/2021 7:54 AM CDT Cinthya Shook APRN-CRNA 01/17/2021 7:54 AM LMA Placement Procedure/LDA Note: Patient Location: OR. LMA Insertion Date/Time: 01/17/2021 7:39 AM Procedure: LMA. Pretreatment: 100% O2 Induction: standard IV Patient position: sniffing. Mask Ventilation: easy Type: LMA Size: 4 Number of Attempts: 1. Cuff volume (mL): 3 Placement verified by: bilateral breath sounds, chest auscultation and CO2 monitor Procedure Start Time: 01/17/2021 7:39 AM. Staff Section Anesthesia Provider: Cinthya Shook APRN-CRNA, Performed the procedure Additional Comments: Atraumatic LMA placement, dentition and lips same as baseline. Pedro Nunez DO GENERAL ANESTHESIA O RDERABLES * HCG URINE QUAL POCT NOTIFICATION (01/17/2021 7:30 AM CDT) Comment Notification Label Only - See Separate Report 01/17/2021 7:30 AM CDT [facility] Urine URINE / Unknown 6:22 AM CDT Peace Jones MD LAB - URINALYSIS OR DERABLES Performing Organization Address City/[facility]/ZIP Co de Phone Number [facility] [address] [place] [id number] * HCG URINE QUALITATIVE - POCT (IP) INTERFACED (01/17/2021 6:29 AM CDT) HCG Qual Urine Negative Negative 01/17/2021 6:35 AM CDT [facility] Urine URINE / Unknown 01/17/2021 6 :29 AM CDT 01/17/2021 6:35 AM CDT Peace Jones MD LAB - POINT OF CARE ORDERABLES [facility] [address] [place] [address] * URINALYSIS W/MICROSCOPIC NO CULTURE (12/15/2020 11:52 AM CDT) Color UA Yellow Straw, Yellow 12/15/2020 1:48 PM CDT [facility] Clarity UA Clear Clear 12/15/2020 1:48 PM CDT [facility] Specific Carter UA 1.021 1.005 - 1.030 12/15/2020 1:48 PM T [facility] pH UA 5.0 5.0 - 8.0 pH 12/15/2020 1:48 PM CDT [facility] Protein UA Negative Negative 12/15/2020 1:48 PM [facility] Glucose UA Negative Negative 12/15/2020 1:48 PM T [facility] Ketone UA Negative Negative 12/15/2020 1:48 PM [facility] Bilirubin UA Negative Negative 12/15/2020 1:48 PM [facility] Blood UA Negative Negative 12/15/2020 1:48 PM T [facility] Nitrite UA Negative Negative 12/15/2020 1:48 PM [facility] Leukocyte Esterase Negative Negative 12/15/2020 1:48 PM [facility] Urobilinogen UA Negative Negative mg/dL 12/15/2020 1:48 PM [facility] RBC UA 0-2 None Seen, 0-2, 3-5 /HPF 12/15/2020 1:48 PM [facility] WBC UA 0-5 None Seen, 0-5 /HPF 12/15/2020 1:48 PM CDT [facility] Squamous Epithelial Cells UA 0-2 None Seen, 0-2, 3-5 /HPF 12/15/2020 1:48 PM CDT [facility] Mucus UA 1+ /LPF 12/15/2020 1:48 PM CDT [facility] Urine URINE SPECIMEN OBTAINED BY CLEAN CATCH PROCEDURE / Unknown Collection / Unknown 12/15/2020 11:52 AM CDT 12/15/2020 1:35 PM CDT Narrative [facility] - 12/15/2020 1:48 PM CDT Jolly A Genet TRUONG-MIXING MACHINE TENDER [employer] LAB - URINALYS IS ORDERABLES [facility] [address] [place] [address], [facility] [phone] * CULTURE URINE (12/15/2020 11:52 AM CDT) Culture Urine <10,000 CFU/mL urogenital michelle SPENCER 12/17/2020 4:14 AM CDT [facility] Urine URINE SPECIMEN OBTAINED BY CLEAN CATCH PROCEDURE / Unknown Collection / Unknown 12/15/2020 11:52 AM CDT 12/15/2020 1:38 PM CDT Jolly Niru Genet TRUONG-MIXING MACHINE T[employer]ER [employer] LAB - MICROBIO LOGY ORDERABLES [facility] [address] [place] [address], [facility] [phone] * CALCIUM/CREAT RATIO URINE RANDOM PANEL (12/15/2020 11:52 AM CDT) Calcium Random Urine 26.6 Not Established mg/dL 12/15/2020 2:23 PM CDT [facility] Creatinine Urine 273 Not Established mg/dL 12/15/2020 2:23 PM CDT [facility] Calcium/Creati nine Ratio Urine 0.10 mg/mg 12/15/2020 2:23 PM CDT [facility] Urine URINE SPECIMEN OBTAINED BY CLEAN CATCH PROCEDURE / Unknown Collection / Unknown 12/15/2020 11:52 AM CDT 12/15/2020 1:35 PM CDT Jolly De León FOREST AIDE-MIXING MACHINE T[employer]ER [employer] LAB - URINE CH EMISTRY ORDERABLES [facility] [address] [place] [address], [facility] [phone] * US KIDNEY AND BLADDER (12/15/2020 10:20 AM CDT) Anatomical Region Laterality Modality Abdomen Ultrasound 12/15/2020 10:0 1 AM CDT Impressions 12/15/2020 10:28 AM CDT 1. Duplicated left renal collecting system 2. Kidneys otherwise normal 3. Underfilled but otherwise normal bladder Reading Radiologist: David Bergman on 12/15/2020 at 10:28 AM Narrative 12/15/2020 10:28 AM CDT INDICATION: Urinary tract infection ORDERING PROVIDER: JOLLY DE LEÓN COMPARISON: None available. TECHNIQUE: Bain scale and color Doppler ultrasound imaging of the kidneys and urinary bladder per department protocol. FINDINGS: Right kidney: 10.7 cm in length. The cortical echotexture and thickness are normal. No urinary tract dilation is present. There is no shadowing calculus. The perinephric soft tissues are normal. Left kidney: 12.1 cm in length. Duplicated appearing left renal collecting system. Satisfactory cortical echotexture and thickness. No urinary tract dilation is present. There is no shadowing calculus. The perinephric soft tissues are normal. Urinary bladder: Underfilled (5 mL). Allowing for underfilling, no wall thickening, trabeculation, or distal hydroureter. No perivesicular ascites. Uterus incompletely evaluated Procedure Note David Bergman MD - 12/15/2020 INDICATION: Urinary tract infection ORDERING PROVIDER: JOLLY DE LEÓN COMPARISON: None available. TECHNIQUE: Bain scale and color Doppler ultrasound imaging of the kidneysand urinary bladder per department protocol. FINDINGS: Right kidney: 10.7 cm in length. The cortical echotexture and thickness are normal. No urinary tractdilation is present. There is no shadowing calculus. The perinephric soft tissues are normal. Left kidney: 12.1 cm in length. Duplicated appearing left renal collecting system. Satisfactory cortical echotexture and thickness. No urinary tract dilation is present. There isno shadowing calculus. The perinephric soft tissues are normal. Urinary bladder: Underfilled (5 mL). Allowing for underfilling, no wall thickening, trabeculation, or distal hydroureter. No perivesicularascites. Uterus incompletely evaluated IMPRESSION 1. Duplicated left renal collecting system 2. Kidneys otherwise normal 3. Underfilled but otherwise normal bladder Reading Radiologist: David Bergman on 12/15/2020 at 10:28 AM Jolly De León FOREST AIDE-MIXING MACHINE TENDER [employer] US ORDERABLES * CARDIAC EKG ORDER (11/10/2019 6:11 PM CDT) Narrative 11/10/2019 6:11 PM CDT Ordered by an unspecified provider. Scanned Document CARDIAC SERVICES ORD ERABLES * XR HAND LEFT 3VW OR MORE (03/18/2018 12:29 PM CDT) Only the most recent of2 resultswithin the time period is included. Anatomical Region Laterality Modality Wrist / Hand Radiographic Karo ging 03/18/2018 1:08 PM CDT Impressions 03/18/2018 2:24 PM CDT Normal. I, Remi Leone, have personally reviewed the images and I agree with this report. Reading Radiologist: Edu Parnell MD on 03/18/2018 at 2:24 PM Narrative 03/18/2018 2:24 PM CDT EXAMINATION: Left hand, 3 views. HISTORY: Reported injury; 12-year-old girl. COMPARISON: Left hand series on 12/11/2016. FINDINGS: No fractures, dislocations, or other bony abnormalities are identified in the left hand. Joint spaces are normal. No soft tissue abnormalities are seen. Procedure Note Remi Leone MD - 03/18/2018 EXAMINATION: Left hand, 3 views. HISTORY: Reported injury; 12-year-old girl. COMPARISON: Left hand series on 12/11/2016. FINDINGS: No fractures, dislocations, or other bony abnormalities are identified in the left hand. Joint spaces are normal. No soft tissue abnormalities are seen. IMPRESSION Normal. I, Remi Leone, have personally reviewed the images and I agree with this report. Reading Radiologist: Edu Parnell MD on 03/18/2018 at 2:24 PM Alvaro Hammond MD DIAGNOSTIC IMAGING O RDERABLES * FERRITIN (03/16/2016 10:21 AM CDT) Ferritin 20 10 - 140 ng/mL 03/16/2016 12:32 PM CDT [facility] Blood BLOOD SPECIMEN / Unknown Lab Venipuncture / Unknown 03/16/2016 10:21 AM CDT 03/16/2016 11:15 AM CDT Jhon Valencia PA-C LAB - CHEMISTRY ORD ERABLES Performing Organization Address [facility] Co de Phone Number [facility] [address] [place] [phone] * RHEUMATOID FACTOR BLOOD SCREEN (03/16/2016 10:03 AM CDT) Rheumatoid Factor Negative Negative 03/16/2016 1:32 PM CDT [facility] Blood BLOOD SPECIMEN / Unknown Lab Venipuncture / Unknown 03/16/2016 10:03 AM CDT 03/16/2016 11:16 AM CDT Jhon Valencia PA-C LAB - CHEMISTRY ORD ERABLES Performing Organization Address City/[facility] Co de Phone Number [facility] [address] [place] [phone] * RONY BLOOD SCREEN W/REFLEX TITER (03/16/2016 10:03 AM CDT) RONY Negative Negative 03/17/2016 7:35 AM CDT [facility] Blood BLOOD SPECIMEN / Unknown Lab Venipuncture / Unknown 03/16/2016 10:03 AM CDT 03/16/2016 11:16 AM CDT Jhon Valencia PA-C LAB - CHEMISTRY ORD ERABLES Performing Organization Address [facility] Co de Phone Number [facility] [address] [place] [address] * (ABNORMAL) VITAMIN D (25-HYDROXY) (03/16/2016 10:03 AM CDT) Pathologist [facility] [place] Vitamin D, 25 Hydroxy 16.28(L) 30 - 100 ng/mL 03/16/2016 3:41 PM CDT [facility] Blood BLOOD SPECIMEN / Unknown Lab Venipuncture / Unknown 03/16/2016 10:03 AM CDT 03/16/2016 11:16 AM CDT [facility] LAB[facility]ATORY - 03/16/2016 3:41 PM CDT Vitamin D Status: Deficiency <20 ng/mL Insufficiency 20-30 ng/mL Sufficiency 30-100 ng/mL Toxicity >100 ng/mL Jhon Valencia PA-C LAB - CHEMISTRY ORD ERABLES Performing Organization Address [facility] de Phone Number [facility] [address] [place] [phone] * (ABNORMAL) CBC W AUTO DIFFERENTIAL (03/16/2016 10:03 AM CDT) [facility] WBC 8.5 4.5 - 14.5 x10E9/L 03/16/2016 11:58 AM T [facility] WBC Corrected x10E9/L 03/16/2016 11:58 AM T [facility] RBC 5.36(H) 4.00 - 5.20 x10E12/L 03/16/2016 11:58 AM T [facility] Hemoglobin 14.1 11.5 - 15.5 gm/dL 03/16/2016 11:58 AM T [facility] Hematocrit 43.2 35.0 - 45.0 % 03/16/2016 11:58 AM [facility] MCV 80.6 77.0 - 95.0 fl 03/16/2016 11:58 AM CDT [facility] MCH 26.3 25.0 - 33.0 pg 03/16/2016 11:58 AM T [facility] MCHC 32.6 31.0 - 37.0 gm/dL 03/16/2016 11:58 AM [facility] Platelet Count 229 100 - 400 x10E9/L 03/16/2016 11:58 AM [facility] RDW-CV 13.4 11.5 - 14.0 % 03/16/2016 11:58 AM [facility] MPV 11.1(H) 6.0 - 9.5 fl 03/16/2016 11:58 AM [facility] Neutrophils % 60.0 24.0 - 66.0 % 03/16/2016 11:58 AM [facility] Lymphocytes % 28.0 22.0 - 61.0 % 03/16/2016 11:58 AM [facility] Monocytes % 8.6 3.0 - 15.0 % 03/16/2016 11:58 AM [facility] Eosinophils % 2.4 0.0 - 10.0 % 03/16/2016 11:58 AM [facility] Basophils % 0.6 % 03/16/2016 11:58 AM [facility] Immature Granulocytes 0.4 % 03/16/2016 11:58 AM [facility] Neutrophil Absolute 5.07 x10E9/L 03/16/2016 11:58 AM [facility] Lymphocytes Absolute 2.37 x10E9/L 03/16/2016 11:58 AM T [facility] Monocytes Absolute 0.73 x10E9/L 03/16/2016 11:58 AM [facility] Eosinophils Absolute 0.20 x10E9/L 03/16/2016 11:58 AM [facility] Basophils Absolute 0.05 x10E9/L 03/16/2016 11:58 AM [facility] Immature Granulocytes Absolute 0.03 x10E9/L 03/16/2016 11:58 AM [facility] nRBC Auto 0 /100 WBC 03/16/2016 11:58 AM [facility] Blood BLOOD SPECIMEN / Unknown Lab Venipuncture / Unknown 03/16/2016 10:03 AM T 03/16/2016 11:15 AM T Jhon Valencia PA-C LAB - HEMATOLOGY OR DERABLES Performing Organization Address City/State/[facility] Co ma Phone Number [facility] [address] [place] [address] * COMPREHENSIVE METABOLIC PANEL (03/16/2016 10:03 AM [facility]) [facility] Glucose 98 70 - 105 mg/dL 03/16/2016 12:16 PM [facility] Sodium 138 136 - 145 mmol/L 03/16/2016 12:16 PM [facility] Potassium 3.6 3.5 - 5.1 mmol/L 03/16/2016 12:16 PM [facility] Chloride 104 98 - 107 mmol/L 03/16/2016 12:16 PM [facility] CO2 23 20 - 28 mmol/L 03/16/2016 12:16 PM [facility] Calcium 9.92 8.92 - 10.32 mg/dL 03/16/2016 12:16 PM [facility] Anion Gap 11 5 - 20 mmol/L 03/16/2016 12:16 PM [facility] BUN 10.6 6.1 - 21.0 mg/dL 03/16/2016 12:16 PM [facility] Creatinine 0.62 0.62 - 1.00 mg/dL 03/16/2016 12:16 PM [facility] Alkaline Phosphatase 294 100 - 390 U/L 03/16/2016 12:16 PM [facility] ALT 22 8 - 65 U/L 03/16/2016 12:16 PM [facility] AST 23 3 - 35 U/L 03/16/2016 12:16 PM [facility] Protein Total 7.8 6.4 - 8.5 gm/dL 03/16/2016 12:16 PM [facility] Albumin 4.3 3.3 - 5.0 gm/dL 03/16/2016 12:16 PM [facility] Bilirubin Total 0.3 0.3 - 1.2 mg/dL 03/16/2016 12:16 PM [facility] eGFR by MDRD mL/min/1.7 3m2 03/16/2016 12:16 PM [facility] Comment: eGFR calculations are not performed for children under 18 years old. eGFR by MDRD mL/min/1.7 3m2 03/16/2016 12:16 PM [facility] Comment: eGFR calculations are not performed for children under 18 years old. Blood BLOOD SPECIMEN / Unknown Lab Venipuncture / Unknown 03/16/2016 10:03 AM CDT 03/16/2016 11:15 AM CDT Jhon Valencia PA-C LAB - CHEMISTRY ORD ERABLES Performing Organization Address [facility] de Phone Number [facility] [address] [place] [phone] * (ABNORMAL) IRON + TRANSFERRIN + TIBC PANEL (03/16/2016 10:03 AM CDT) Iron 89 25 - 156 ug/dL 03/16/2016 12:13 PM CDT [facility] Transferrin 360 180 - 391 mg/dL 03/16/2016 12:13 PM CDT [facility] TIBC Calculated 450(H) 250 - 400 mg/dL 03/16/2016 12:13 PM CDT [facility] Iron Saturation % 20 20 - 50 % 03/16/2016 12:13 PM CDT [facility] Blood BLOOD SPECIMEN / Unknown Lab Venipuncture / Unknown 03/16/2016 10:03 AM CDT 03/16/2016 11:15 AM CDT Jhon Valencia PA-C LAB - CHEMISTRY ORD ERABLES Performing Organization Address [facility] Co de Phone Number [facility] [address] [place] [id number] Care Teams Cotton Candy Maker Relationship Specialty Start Date End Date Franca Monroy PA-C [address] [place] [phone] PCP - General Physician Manager Inventory 12/15/20
--- OUTSIDE RECORDS SUMMARY | 2024-08-26 12:46 | XMS_ITS | Referral Summary ---
Author Organization [facility] Address [address] [place] [address] Care Team Providers Care Batt Packer Name Role Phone Franca Monroy PA-C Primary Care Provider Source Comments [facility],non-owned Affiliates and Associated Physician Practices is amultiple site organization consisting of ambulatory clinics and hospital sitesin [place], [place], [place] and [place]. This disclosure is being madepursuant to the Care Everywhere program and may not contain all information available regarding this patient. Last updated 18.[facility] Allergies Active Allergy Reactions Criticality Noted [...] disease) Immunizations Name Administration Dates Next Due Covgiorgio Vasiliy primary monoval ent 12+ yr 0.3mL Purple cap 11/08/2020,09/28/2020 Social History Tobacco Use Types Packs/Day Years Used Date Smoking Tobacco: Never Smokeless Tobacco: Never Tobacco Cessation:Counseling Given: No Alcohol Use Standard Drinks/Week Comments Not Currently 0 (1 standard drink = 0.6 oz pur e alcohol) Westminster Depression Scale Answer Date Recorded Westminster Depression Scale Total 18 08/01/2022 The thought [...] Comments Blood Pressure 133/73 08/01/2022 10:59 AM BUTT TRIMMER Pulse 88 08/01/2022 10:59 AM BUTT TRIMMER Temperature 36.3 C (97.3 F) 01/17/2021 10:15 AM CDT Respiratory Rate 14 01/17/2021 11:25 AM CDT Oxygen Saturation 98% 01/17/2021 11:25 AM CDT Inhaled Oxygen Concentration - - Weight 84.6 kg (186 lb 6.4 oz) 08/01/2022 10:59 AM BUTT TRIMMER Height 172.7 cm (5' 8 ) 08/01/2022 10:59 AM BUTT TRIMMER Body Mass Index 28.34 08/01/2022 10:59 AM BUTT TRIMMER Plan of Treatment Not on file Care Teams Batt Packer Relationship Specialty Start Date End Date Franca Monroy PA-C [address] [place] [phone] PCP - General Physician Punchboard Assembler 12/15/20
--- OUTSIDE RECORDS SUMMARY | 2024-08-26 12:46 | XMS_ITS | Encounter Summary ---
Author Organization [facility] Address [address] [place] [address] Phone Care Team Providers Care Skills Trainer Name Role Phone Ondina Chacko Primary Care Provider + Reason for Visit * Reason Comments Medication Refill Encounter Details Date Type Department Care Team (Late st Contact Info) Description 05/05/2021 Refill [facility] [address] [place] [address] Ondina Chacko PAC [address] [place] [address] Medication Refill Social History Tobacco Use Types Packs/Day Years Used Date Smoking Tobacco: Never Smokeless Tobacco: Never Alcohol Use Standard Drinks/Week Comments Yes 0 (1 standard drink = 0.6 oz pur e alcohol) occasiionally PHQ-2 Answer Date Recorded Total Score - Questions 1-9 13 09/2020 Sexually Active Control Partners Comments Yes None Male Comments No Sex and Gender Information Value Date Recorded Sex Assigned at Not on file Legal Sex Female 8:52 PM CDT Gender Identity Not on file Sexual Orientation Not on file COVID-19 Exposure Response Date Recorded In the last month, have you been in contact with someone who was confirmed or suspected to have Coronavirus / COVID-19? No / Unsure 04/10/2021 8:57 AM CDT documented as of this encounter Miscellaneous Notes * Telephone Encounter - Chelsea Carrillo RN - 05/05/2021 12:54 PM CST Medication failed the protocol, provider to review and approve the medication order if appropriate. Requested Prescriptions Pending Prescriptions Disp Refills lamoTRIgine (LaMICtal) 25 MG Tablet [Pharmacy Med Name: LAMOTRIGINE 25MG TABLET] 60 Tablet Sig: TAKE 2 TABLETS BY MOUTH DAILY. Not Delegated - Anticonvulsants Protocol Failed - 05/05/2021 10:47 AM Failed - This refill cannot be delegated Passed - Visit with relevant provider in past 12 months or upcoming 90 days Recent Visits Date Type Provider Dept 04/10/21 Office Visit Ondina Chacko PAC [facility] 03/27/21 Office Visit Ondina Chacko PAC [facility] Showing recent visits within past 365 days and meeting all other requirements Future Appointments No visits were found meeting these conditions. Showing future appointments within next 90 days and meeting all other requirements CH LANGUAGE PATHOLOGY ASSISTANT documented in this encounter Plan of Treatment Not on file documented as of this encounter Visit Diagnoses Not on filedocumented in this encounter Additional Health Concerns Infection Onset Date Last Indicated Resolved Time COVID - 19 Confirmed 07/01/2021 07/01/2021 022 12:16 AM SPEECH LANGUAGE PATHOLOGY ASSISTANT Assessment Noted Time PHQ-9 Depression Total Score: 13 021 2:52 PM CDT documented as of this encounter Care Teams Skills Trainer Relationship Specialty Start Date End Date Ondina Chacko PAC [address] [place] [address] PCP - General Physician Singing Teacher 03/27/21 06/27/24 documented as of this encounter
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
--- OUTSIDE RECORDS SUMMARY | 2024-08-26 12:46 | XMS_ITS | Referral Summary ---
Author Organization [address] Address [address] [place] [address] Care Team Providers Care Medical Coding Technician Name Role Phone Ondina Chacko Primary Care Provider Allergies Active Allergy Reactions Criticality Noted Date [...] 2021 Urinary tract infection in female 06/10/2022 Social History Tobacco Use Types Packs/Day Years [...] on file Legal Sex Female 3:38 AM [employer] Gender Identity Not on file Sexual Orientation Not on file Last Filed Vital Signs Vital Sign Reading Time Taken Comments Blood Pressure 137/64 08/31/2023 10:55 PM [employer] Pulse 107 08/31/2023 10:55 PM [employer] Temperature 37.3 C (99.1 F) 08/31/2023 10:55 PM [employer] Respiratory Rate 16 08/31/2023 10:55 PM [employer] Oxygen Saturation 100% 08/31/2023 10:55 PM [employer] Inhaled Oxygen Concentration - - Weight 97.5 kg (215 lb) 08/31/2023 10:55 PM [employer] Height 172.7 cm (5' 8 ) 08/31/2023 10:55 PM [employer] Body Mass Index 32.69 08/31/2023 10:55 PM [employer] Plan of Treatment Not on file Insurance [facility] [place] [address] Care Teams Medical Coding Technician Relationship Specialty Start Date End Date Ondina Chacko PA [address] [place] [address] PCP - General Collection Manager 06/10/22
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
--- OUTSIDE RECORDS SUMMARY | 2024-08-26 12:46 | XMS_ITS | Encounter Summary ---
Author Organization [facility] Address [address] [place] [address] Phone Care Team Providers Care Director Industrial Name Role Phone Cami Chackoa Latha SILVERIO Primary Care Provider + Encounter Details Date Type Department Care Team (Late st Contact Info) Description 04/24/2022 Behavioral Health Patient Survey [facility] 1 [place] [phone] Mychart, Generic Provider [address] [place] [address] Social History Tobacco Use Types Packs/Day Years [...] suspected to have Coronavirus/COVID-19? No / Unsure 04/24/2022 1:48 PM CDT documented as of this encounter Plan of Treatment Not on file documented as of this encounter Goals Goal Patient Goal Type Associated Problems Recent Progress Patient-Stated? Author better coping mechanisms Behavioral Health On track( 3:59 PM PLASTIC SURGERY SPECIALIST) Yes Lashay Haley LCSW increased coping skills Behavioral Health On track( 3:59 PM PLASTIC SURGERY SPECIALIST) No Lashay Haley LCSW Note: Goal/Objective: Improve coping skills. Anticipated Time Frame for Goal Completion: 6 months Goal Reviewed with: patient Readiness to change: Ready to change Department associated with goal: [facility] Steps to achieve [...] documented as of this encounter Care Teams Director Industrial Relationship Specialty Start Date End Date Ondina Chacko [address] [place] [address] PCP - General Physician Entry Examiner 03/27/21 06/27/24 documented as of this encounter
[2024-08-26 19:23] LABS: Trichomonas Vag PCR NOT DETECTED (NOT DETECTE)
[2024-08-26 19:47] LABS: Chlamydia trachomatis DETECTED (NOT DETECTE); Neisseria gonorrhoeae PCR NOT DETECTED (NOT DETECTE)
== END 2024-08-26 12:09 | disposition home or self-care (01) ==
PROVIDERS: Emergency Provider Nurse Practitioner
DX: A74.9 Chlamydial infection, unspecified (principal); N89.8 Other specified noninflammatory disorders of vagina; F41.9 Anxiety disorder, unspecified; F32.A Depression, unspecified
CPT/HCPCS: 81003; 87086; 87491; 87591; 87661; 99213; G0463

== ENCOUNTER 2024-10-13 13:49 | Emergency (ER) | payer OTHER, SELFPAY ==
[2024-10-13 14:02] VITALS: BP 147/92; PULSE 111; RESP 20; TEMP 36.5; O2SAT 99
--- NOTE | 2024-10-13 14:21 | ED.EAR ---
HPI - Ear Problem General Chief complaint: Ear Stated complaint: Right Ear Pain History of Present Illness HPI Narrative: patient is a 19-year-old female, past medical history significant for anxiety and depression, presents to [facility] with right otalgia, onset of symptoms 2 days ago. She denies associated fevers chills. She has no URI symptoms otherwise. She denies otorrhea or trauma. Taking almg-lxb-ilbnsap Tylenol for symptom relief with moderate improvement. She has no other acute complaints, she is not . Related Data Home Medications ?Medication ?Instructions ?Recorded ?Confirmed ?Last Taken ?Type trazodone 50 mg tablet 50 mg PO BID 09/24/23 08/26/24 Unknown History bupropion HCl 100 mg tablet,12 hr mg PO 10/13/24 Unknown History sustained-release Allergies Allergy/AdvReac Type Severity Reaction Status Date / Time bee venom protein (honey Allergy Unknown Anaphylactic Verified 10/13/24 14:05 bee) (bees) Shock venom-wasp Allergy Unknown Anaphylactic Verified 10/13/24 14:05 Shock red dye Allergy Swelling Verified 10/13/24 14:05 of Lip/Tongue/Throat Review of Systems ENT: Reports as per HPI [facility] Past Medical History Medical History Tonsillitis UTI (urinary tract infection) Anxiety Depression Right arm fracture Ankle fracture, left Surgical History Surgical History History of dental surgery Family History Family History Father Diabetes mellitus SVT (supraventricular tachycardia) Grandparent Diabetes mellitus Grandparent Diabetes mellitus Social History Social History Smoking status: Never smoker Alcohol intake: current Substance use: never Lack of Transportation: No Lack of Food: Never True Current Housing: I Have Housing Concerned About Future Housing: No Difficulty Paying Gas/Electric Bills: No Difficulty Paying for Meds: No Currently Unemployed: No Education: High School Diploma/GED Difficulty w/ Childcare or Family Care: No Gender identity (if verbalized by the patient): Female Spiritual care concerns: No Exam Const: General: healthy appearing Nutritional Appearance: obese Orientation/consciousness: patient oriented x3 Limitations: no limitations HENMT: Head: normal to inspection Ears: external ears normal and TM abnormal erythematous ( purulent effusion on the right, no perforation, left TMs unremarkable) on the right Face/Nose/Sinus: Normal external nose present Face and sinus: normal facial exam Mouth: Yes Normal oral and palatal mucosa present and Yes lip normal Teeth and gingiva: dentition normal Throat: uvula midline Other: Tonsils are 3+ bilaterally, chronically enlarged per patient, no exudate erythema Eyes: Conjunctivae: conjunctivae normal Pupils: Equal, round and reactive pupils present EOM: EOMs intact bilaterally Direct Ophthalmoscopy: no photophobia Resp: Effort & Inspection: normal respiratory effort Auscultation: clear to auscultation bilaterally Cardio: Rate: regular rate Rhythm: regular rhythm Skin: General skin exam: normal color Rashes: no rashes Wounds: no wounds Neuro: General: patient oriented x3, moves all extremities, no meningeal signs, no focal motor deficits and CN's II-XI intact bilaterally Extrem: General: normal to inspection Course Course Emergency Course: plan to treat for right otitis media, Augmentin b.i.d. for 10 days, follow-up with PCP in 3 days if otalgia is not resolving Level of Care: Express Care Visit ([id number]) Vital Signs Vital signs: Vital Signs Temperature 36.5 C 10/13/24 14:02 Pulse Rate 111 H 10/13/24 14:02 Respiratory Rate 20 10/13/24 14:02 Blood Pressure 147/92 H 10/13/24 14:02 Pulse Oximetry 99 10/13/24 14:02 Oxygen Delivery Room Air 10/13/24 14:02 Temperature 36.5 C 10/13/24 14:02 Pulse Rate 111 H 10/13/24 14:02 Respiratory Rate 20 10/13/24 14:02 Blood Pressure 147/92 H 10/13/24 14:02 Pulse Oximetry 99 10/13/24 14:02 Oxygen Delivery Room Air 10/13/24 14:02 Medical Decision Making [facility] Narrative Medical decision making narrative: Augmentin b.i.d. 10 days Differential Diagnosis Differential Diagnosis: otitis media, otitis externa, sinusitis, URI, eustachian Vital Signs Vital Signs: Vital Signs Temperature 36.5 C 10/13/24 14:02 Pulse Rate 111 H 10/13/24 14:02 Respiratory Rate 20 10/13/24 14:02 Blood Pressure 147/92 H 10/13/24 14:02 Pulse Oximetry 99 10/13/24 14:02 Oxygen Delivery Room Air 10/13/24 14:02 Temperature 36.5 C 10/13/24 14:02 Pulse Rate 111 H 10/13/24 14:02 Respiratory Rate 20 10/13/24 14:02 Blood Pressure 147/92 H 10/13/24 14:02 Pulse Oximetry 99 10/13/24 14:02 Oxygen Delivery Room Air 10/13/24 14:02 Discharge Plan Discharge Clinical Impression: Acute suppur right otitis media w/o spontan rupture tympanic membrane Patient Disposition: Home Condition: Stable Instructions: Antibiotic Form, Ear Infection (ED) Additional Instructions: COMPLETE ANTIBIOTICS PRESCRIBED. FOLLOW-UP CLOSELY WITH HER PCP IN 3-5 DAYS IF YOUR SYMPTOMS ARE NOT RESOLVING Patient Language: Arabic Prescriptions: New amoxicillin-pot clavulanate 875-125 mg tablet 1 tablet PO Q12H Qty: 20 0RF No Action trazodone 50 mg tablet 50 mg PO BID bupropion HCl 100 mg tablet sustained-release 12 hr PO Follow-up/Referrals: PHYSICIAN,UNDERCOVER AGENT [Primary Care Provider] - Time of Disposition: 14:25
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
--- OUTSIDE RECORDS SUMMARY | 2024-10-13 15:45 | XMS_ITS | Encounter Summary ---
Author Organization [facility] Address [address] [place] [address] Phone Care Team Providers Care Supply Person Name Role Phone Ondina Chacko Primary Care Provider + Reason for Visit * Reason Comments Medication Refill Encounter Details Date Type Department Care Team (Late st Contact Info) Description 05/05/2021 Refill [facility] [address] [place] [address] Ondina Chacko [address] [place] [address] Medication Refill Social History Tobacco Use Types [...] 90 days and meeting all other requirements UREMENT ADVISOR documented in this encounter Plan of Treatment Not on file documented as of this encounter Visit Diagnoses Not on filedocumented in this encounter Additional Health Concerns Infection Onset Date Last Indicated Resolved Time COVID - 19 Confirmed 07/01/2021 07/01/2021 022 12:16 AM MEASUREMENT ADVISOR Assessment Noted Time PHQ-9 Depression Total Score: 13 021 2:52 PM CDT documented as of this encounter Care Teams Supply Person Relationship Specialty Start Date End Date Ondina Chacko [address] [place] [address] PCP - General Physician Foot Piece Assembler 03/27/21 06/27/24 documented as of this encounter
--- OUTSIDE RECORDS SUMMARY | 2024-10-13 15:45 | XMS_ITS | Clinical Summary ---
Author Organization [facility] Address [address] [place] [address] Phone Care Team Providers Care Link Wire Fabric Machine Operator Name Role Phone Unavailable Primary Care Provider [...] / 10 MCG Tablet 1 Active Multiple Vitamins-[place] als (WOMENS MULTI PO) Take 1 Capsule [...] Lnp-s, Pf, 3 0 Mcg/0.3 Ml Dose ([email or web address]) 09/28/2020 DTAP VACCINE 02/17/2008,09/06/2004 DTAP/HEPB/IPV Vaccine 2003,2003,06/26 [...] Comments Blood Pressure 118/82 07/01/2021 10:30 PM HOP FARM WORKER Pulse 108 07/01/2021 10:30 PM HOP FARM WORKER Temperature 37.5 C (99.5 F) 07/01/2021 9:28 PM HOP FARM WORKER Respiratory Rate 15 07/01/2021 10:30 PM HOP FARM WORKER Oxygen Saturation 99% 07/01/2021 10:30 PM HOP FARM WORKER Inhaled Oxygen Concentration - - Weight 95.3 kg (210 lb) 07/01/2021 9:28 PM HOP FARM WORKER Height 172.7 cm (5' 8 ) 07/01/2021 9:28 PM HOP FARM WORKER Body Mass Index 31.93 07/01/2021 9:28 PM HOP FARM WORKER Plan of Treatment Health Maintenance Due Date Last Done Comments Meningococcal B Immunization (1 of 2 - Standard) 2019 SARS-COV-2 Immunization ( season) 2024 11/08/2020, 09/28/2020 Pap Smear 2024 Influenza Immunization (Season Ended) 2025 08/12/2023, 03/22/2016, 03/31/2015, Additional history exists DTaP/Tdap/Td Immunization (8 - Td or Tdap) [...] mechanisms Behavioral Health On track( 3:59 PM HOP FARM WORKER) Yes Lashay Haley LCSW increased coping skills Behavioral Health On track( 3:59 PM HOP FARM WORKER) No Lashay Haley LCSW Note: Goal/Objective: Improve coping skills. Anticipated Time Frame for Goal Completion: 6 months Goal Reviewed with: patient Readiness to change: Ready to change Department associated with goal: [facility] Steps to achieve [...] 1x/month at least 6 sessions Insurance MEDICAID [facility] PLAN MEDICAID [facility] PLAN
--- OUTSIDE RECORDS SUMMARY | 2024-10-13 15:45 | XMS_ITS | Clinical Summary ---
Author Organization [facility] Address [address] [place] [address] Care Team Providers Care Post Secondary Professional Name Role Phone Franca Monroy PA-C Primary Care Provider Source Comments [facility],non-owned Affiliates and Associated Physician Practices is amultiple site organization consisting of ambulatory clinics and hospital sitesin [place], [place], [place] and [place]. This disclosure is being madepursuant to the Care Everywhere program and may not contain all information available regarding this patient. Last updated 18.[facility] Allergies Active Allergy Reactions Criticality Noted Date Comments Bee Anaphylaxis High 11/29/2015 Wasp Venom Anaphylaxis High 11/29/2015 Medications * Be aware that medications may not be up to date on this document. Alwaysverify current medications with the patient. EPIPEN 2-MISTY 0.3 MG/0.3ML auto-injector pen 2 5 Active venlafaxine XR 24hr (EFFEXOR XR) 75 MG capsule TK 1 C PO QD 2 8 Active busPIRone (BUSPAR) 5 MG tablet 1 Active LORazepam (ATIVAN) 1 MG tablet Take 1 mg by mouth as needed 1 Active FLUoxetine (PROZAC) 10 MG capsule Take 10 mg by mouth once daily 1 Active ibuprofen (MOTRIN) 600 MG tablet Take 1 (one) tablet by mouth every 6 hours as needed for Pain 40 tablet 1 Active docusate sodium (COLACE) 100 MG capsule Take 1 (one) capsule by mouth 2 times daily as needed for Constipation 20 capsule 1 1 Active acetaminophen (TYLENOL) 500 MG tablet Take 2 (two) tablets by mouth every 6 hours as needed for Pain Maximum allowable Acetaminophen amount = 4 Grams (4000 mg) / 24 hours. 80 tablet 1 Active nitrofurantoin monohyd macro crystals (MACROBID) 100 MG capsule Take 1 (one) capsule by mouth once daily 6 capsule 1 Active Additional Information Patient not taking.Reported on 03/09/2021 phenazopyridin e (PYRIDIUM) 200 MG tablet One tablet by mouth every 8 hours as needed for bladder pain and bladder spasms 30 tablet 1 Active Additional Information Patient not taking.Reported on 03/09/2021 Multiple Vitamins-Manager Imaging als (MULTIPLE VITAMINS/WOMEN S PO) Take 1 capsule by mouth once [...] ankle Depression GERD (gastroesophageal reflux disease) Immunizations Immunization Administration Dates Next Due CovPurpleTeal primary monoval ent 12+ yr 0.3mL Purple [...] drink = 0.6 oz pur e alcohol) Elwood Depression Scale Answer Date Recorded Elwood Depression Scale Total 18 08/01/2022 The thought of harming myself has occurred to me . Hardly ever 08/01/2022 Comments No Sex and Gender Information Value Date Recorded Sex Assigned at Female 09/25/2020 12:43 PM CDT Legal Sex Female 5:44 AM MUSIC MANAGER Gender Identity Female 09/25/2020 12:43 PM CDT Sexual Orientation Bisexual 09/25/2020 12 :43 PM CDT Last Filed Vital Signs Vital Sign Reading Time Taken Comments Blood Pressure 133/73 08/01/2022 10:59 AM MUSIC MANAGER Pulse 88 08/01/2022 10:59 AM MUSIC MANAGER Temperature 36.3 C (97.3 F) 01/17/2021 10:15 AM CDT Respiratory Rate 14 01/17/2021 11:25 AM CDT Oxygen Saturation 98% 01/17/2021 11:25 AM CDT Inhaled Oxygen Concentration - - Weight 84.6 kg (186 lb 6.4 oz) 08/01/2022 10:59 AM MUSIC MANAGER Height 172.7 cm (5' 8 ) 08/01/2022 10:59 AM MUSIC MANAGER Body Mass Index 28.34 08/01/2022 10:59 AM MUSIC MANAGER Plan of Treatment Health Maintenance Due Date Last Done Comments PAP SMEAR 2003 HPV VACCINE (1 - 3-dose series) 2018 MENINGOCOCCAL (Group B) VACCINE SHARED DECISION-MAKING (1 of 2 - Standard) 2019 HEPATITIS C SCREENING 06/07/2021 DTAP/TDAP/TD VACCINES (1 - Tdap) 2022 HEPATITIS B VACCINE (1 of 3 - 19+ 3-dose series) 2022 CHLAMYDIA/GONORRHEA SCREENING 07/06/2023 07/06/2022, 04/02/2022, 04/02/2022, Additional history exists COVID-19 VACCINE ( - 2023- season) 2024 11/08/2020, 09/28/2020 DEPRESSION SCREENING 06/24/2024 INFLUENZA VACCINE (Season Ended) 2025 03/22/2016, 03/31/2015, 04/29/2014, Additional history exists ZOSTER VACCINE (1 of 2) 2053 HIV SCREENING Completed 07/16/2022 HIB VACCINE Aged Out No longer eligi ble based on patient's age to complete this topic MENINGOCOCCAL GROUPS A/C/Y/W VACCINE Aged Out No longer eligible based on patient's age to complete this topic PNEUMOCOCCAL VACCINE Aged Out No long er eligible based on patient's age to complete this topic Insurance MEDICAID - OUT OF STATE Member Subscriber Plan / Payer (Ef fective for All Dates) Name:Joanie Miranda Relation to Subscriber:Self Name:JOANIE WARE Payer ID:Not on file Group ID:Not on file Type:Medicaid Address: [address] [facility] Care Teams Post Secondary Professional Relationship Specialty Start Date End Date Franca Monroy PA-C [address] [place] [phone] PCP - General Physician Tester Vibrator Equipment 12/15/20
--- OUTSIDE RECORDS SUMMARY | 2024-10-13 15:45 | XMS_ITS | Encounter Summary ---
Author Organization [facility] Address [address] [place] [address] Phone Care Team Providers Care Program Director Cable Television Name Role Phone AmayaCami grullona Latha SILVERIO Primary Care Provider + Encounter Details Date Type Department Care Team (Late st Contact Info) Description 03/20/2022 Behavioral Health Patient Survey [facility] Services [address] [place] [id number] Mychart, Generic Provider [address] [place] [address] Social History Tobacco Use Types Packs/Day Years [...] mechanisms Behavioral Health On track( 3:59 PM LOAN SECRETARY) Yes Lashay Haley LCSW increased coping skills Behavioral Health On track( 3:59 PM LOAN SECRETARY) No Lashay Haley LCSW Note: Goal/Objective: Improve coping skills. Anticipated Time Frame for Goal Completion: 6 months Goal Reviewed with: patient Readiness to change: Ready to change Department associated with goal: [facility] Steps to achieve goal: [...] documented as of this encounter Care Teams Program Director Cable Television Relationship Specialty Start Date End Date Ondina Chacko [address] [place] [address] PCP - General Physician Key Entry Operator 03/27/21 06/27/24 documented as of this encounter
--- OUTSIDE RECORDS SUMMARY | 2024-10-13 15:45 | XMS_ITS | Clinical Summary ---
Author Organization [address] Address [address] [place] [address] Care Team Providers Care Golf Course Equipment Operator Name Role Phone Ondina Chacko Primary Care [...] on file Legal Sex Female 3:38 AM TECHNICIAN BIOLOGICAL HEALTH Gender Identity Not on file Sexual Orientation Not on file Obstetrics History Para Term AB IAB SAB Ectopic Multiple Livin g Live Births 1 Date Outcome GA Total Labor Labor/2nd/3rd Weight Sex Type Anes PTL Venessa A1 A5 Name Clin Last Filed Vital Signs Vital Sign Reading Time Taken Comments Blood Pressure 137/64 08/31/2023 10:55 PM TECHNICIAN BIOLOGICAL HEALTH Pulse 107 08/31/2023 10:55 PM TECHNICIAN BIOLOGICAL HEALTH Temperature 37.3 C (99.1 F) 08/31/2023 10:55 PM TECHNICIAN BIOLOGICAL HEALTH Respiratory Rate 16 08/31/2023 10:55 PM TECHNICIAN BIOLOGICAL HEALTH Oxygen Saturation 100% 08/31/2023 10:55 PM TECHNICIAN BIOLOGICAL HEALTH Inhaled Oxygen Concentration - - Weight 97.5 kg (215 lb) 08/31/2023 10:55 PM TECHNICIAN BIOLOGICAL HEALTH Height 172.7 cm (5' 8 ) 08/31/2023 10:55 PM TECHNICIAN BIOLOGICAL HEALTH Body Mass Index 32.69 08/31/2023 10:55 PM TECHNICIAN BIOLOGICAL HEALTH Plan of Treatment Health Maintenance Due Date [...] , 2003, 2003, Additional history exists Insurance [facility] [address] [place] [address] Care Teams Golf Course Equipment Operator Relationship Specialty Start Date End Date Ondina Chacko PA [address] [place] [id number] PCP - General Computer Operator 06/10/22
--- OUTSIDE RECORDS SUMMARY | 2024-10-13 15:45 | XMS_ITS | Referral Summary ---
Author Organization [address] Address [address] [place] [address] Care Team Providers Care Plumbing Manager Name Role Phone Ondina Chacko Primary Care Provider [phone] Allergies Active Allergy Reactions Criticality Noted Date [...] on file Legal Sex Female 3:38 AM CATALYTIC CASE OPERATOR Gender Identity Not on file Sexual Orientation Not on file Last Filed Vital Signs Vital Sign Reading Time Taken Comments Blood Pressure 137/64 08/31/2023 10:55 PM CATALYTIC CASE OPERATOR Pulse 107 08/31/2023 10:55 PM CATALYTIC CASE OPERATOR Temperature 37.3 C (99.1 F) 08/31/2023 10:55 PM CATALYTIC CASE OPERATOR Respiratory Rate 16 08/31/2023 10:55 PM CATALYTIC CASE OPERATOR Oxygen Saturation 100% 08/31/2023 10:55 PM CATALYTIC CASE OPERATOR Inhaled Oxygen Concentration - - Weight 97.5 kg (215 lb) 08/31/2023 10:55 PM CATALYTIC CASE OPERATOR Height 172.7 cm (5' 8 ) 08/31/2023 10:55 PM CATALYTIC CASE OPERATOR Body Mass Index 32.69 08/31/2023 10:55 PM CATALYTIC CASE OPERATOR Plan of Treatment Not on file Insurance [facility] [place] [address] [place] [address] Care Teams Plumbing Manager Relationship Specialty Start Date End Date Ondina Chacko PA [address] [place] [address] PCP - General Road Supervisor Of Engines 06/10/22
--- OUTSIDE RECORDS SUMMARY | 2024-10-13 15:45 | XMS_ITS | Encounter Summary ---
Author Organization [facility] Address [address] [place] [address] Phone Care Team Providers Care Rug Hooker Name Role Phone Cami Chackoa Latha SILVERIO Primary Care Provider + Encounter Details Date Type Department Care Team (Late st Contact Info) Description 04/24/2022 Behavioral Health Patient Survey [facility] [address] [place] [phone] Mychart, Generic Provider [address] [place] [address] Social History Tobacco Use Types Packs/Day Years [...] mechanisms Behavioral Health On track( 3:59 PM LAST SAWYER) Yes Lashay Haley LCSW increased coping skills Behavioral Health On track( 3:59 PM LAST SAWYER) No Lashay Haley LCSW Note: Goal/Objective: Improve coping skills. Anticipated Time Frame for Goal Completion: 6 months Goal Reviewed with: patient Readiness to change: Ready to change Department associated with goal: [facility] Steps to achieve goal: [...] documented as of this encounter Care Teams Rug Hooker Relationship Specialty Start Date End Date Ondina Chacko [address] [place] [address] PCP - General Physician Gas Desulfurizer 03/27/21 06/27/24 documented as of this encounter
--- OUTSIDE RECORDS SUMMARY | 2024-10-13 15:45 | XMS_ITS | Data Portability ---
Author Organization [facility] Address [address] [place] [address] Care Team Providers Care Dietitian Helper Name Role Phone VIN DAVIS Primary Care Provider Assessment Encounter Date Assessment Date Assessment LastModified by Organization Details LastModified Time 09/11/2023 09/11/2023 iud removed w/o difficulty, start nuvaring, give one month to be effective, f/u wwe [email or web address] Not available 09/11/2023 16:17:18 Plan of Treatment Reminders Order Date Submit Date Provider Last Modified By Organization Details Last Modified Time Details Appointments None recorded. Lab hbcab (hepatitis B core Ab) igm, serum 2024 025 [facility] (Lab), [address] [place], [address], 5 04:09:06 HBsAg (hepatitis B surface Ag), serum 2024 025 [facility] (Lab), [address] [place], [address], 5 04:09:06 hepatitis C virus Ab, serum 2024 025 [facility] (Lab), [address] [place], [address], 5 04:09:06 HIV 1+2 AB + HIV 1 p24 Ag, qualitative immunoassay , serum 2024 025 [facility] (Lab), [address], [place], [address], 5 04:09:07 RPR (rapid plasma reagin), serum 2024 025 [facility] (Lab), [address], [place], [address], 5 04:09:07 test, urine 2024 025 [facility], [address], [address], [place], [address], 5 14:54:29 CT + NG + TV, RNA, unspecified specimen 2024 025 [facility] (Lab), [address], [place], [address], 5 12:27:07 test, urine 2023 024 [address], [address], [place], [address], 4 15:01:44 Referral None recorded. Procedures None recorded. Surgeries None recorded. Imaging None recorded. Medication Orders metronidazo le 500 mg tablet 2023 024 [id number] [id number], [address] [place], [address], 5 09:44:18 NuvaRing 0.12 mg-0.015 mg/24 hr vaginal 2023 024 [email or web address] [id number], [address] [place], [address], 5 14:08:43 Patient TargetsNo targets recorded. Patient InstructionsNo instructions recorded. Reason for Referral None Reported. Results Created Date Observation Date Name Description Value Unit Range Abnormal Flag Note LastModifiedBy Organization Detail LastModifiedTime 08/14/1908/14/2023 CT/GC AND TRICH OMONA S VAGIN KRISTOFER (RRNA ), URINE chlamydia trachomatis, PCR Negati ve negati ve Not Available [facility] (Lab) [address], [place], [address], 08/15/2023 13:21:02 08/14/19 24 08/14/2023 CT/GC AND TRICH OMONA S VAGIN KRISTOFER (RRNA ), URINE neisseria gonorrhoeae, PCR Negati ve negati ve Not Available [facility] (Lab) [address], [place], [address], 08/15/2023 13:21:02 08/14/19 24 08/14/2023 CT/GC AND TRICH OMONA S VAGIN KRISTOFER (RRNA ), URINE trichomonas vaginalis ribosomal RNA (rrna) Negati ve negati ve Not Available [facility] (Lab) [address], [place], [address], 08/15/2023 13:21:02 08/14/19 24 08/14/2023 pregn rubén test, urine HCG negati ve Not Available [facility] [place] [address], [place], [address], 08/14/2023 14:52:57 10/14/19 24 10/14/2023 VAGIN ITIS/ VAGIN OSIS, DNA PROBE mechelle sp. detection, direct probe Negati ve negati ve Not Available [facility] (Lab) [address], [place], [address], 10/15/2023 15:37:05 10/14/19 24 10/14/2023 VAGIN ITIS/ VAGIN OSIS, DNA PROBE gardnerella vag. detection, direct probe Negati ve negati ve Not Available [facility] (Lab) [address], [place], [address], 10/15/2023 15:37:05 10/14/19 24 10/14/2023 VAGIN ITIS/ VAGIN OSIS, DNA PROBE trichomonas vag. detection, direct probe Negati ve negati ve Not Available [facility] (Lab) [address], [place], [address], 10/15/2023 15:37:05 10/14/19 24 10/14/2023 CT/GC AND TRICH OMONA S VAGIN KRISTOFER (RRNA ), SWAB chlamydia trachomatis, PCR Negati ve negati ve Not Available [facility] (Lab) [address], [place], [address], 10/15/2023 15:37:06 10/14/19 24 10/14/2023 CT/GC AND TRICH OMONA S VAGIN KRISTOFER (RRNA ), SWAB neisseria gonorrhoeae, PCR Negati ve negati ve Not Available [facility] (Lab) [address], [place], [address], 10/15/2023 15:37:06 10/14/19 24 10/14/2023 CT/GC AND TRICH OMONA S VAGIN KRISTOFER (RRNA ), SWAB trichomonas vaginalis ribosomal RNA (rrna) Negati ve negati ve Not Available [facility] (Lab) [address], [place], [address], 10/15/2023 15:37:06 10/14/19 24 10/14/2023 pregn rubén test, urine HCG negati ve Not Available [facility] [place] [address], [place], [address], 10/14/2023 15:01:36 04/08/20 24 04/08/2024 WOMEN 'S HEALT H SWAB PLUS, SOFIA bacterial vaginosis (bv), tma Positi ve negati ve abnormal This resul t is indet ermin ate. Unabl e to deter mine the prese nce or absen ce of the teste d urbano te due to possi ble inter ferin g subst ances , inclu ding but not limit ed to blood or mucus . Sugge st retes ting the patie nt using a new sampl e if clini laura indic ated. Not Available [facility] (Lab) [address] [place], [address], 04/10/2024 14:14:29 04/08/20 24 04/08/2024 WOMEN 'S HEALT H SWAB PLUS, SFOIA mechelle species, tma Indete rminat e negati ve abnormal This resul t is indet ermin ate. Unabl e to deter mine the prese nce or absen ce of the teste d urbano te due to possi ble inter ferin g subst ances , inclu ding but not limit ed to blood or mucus . Sugge st retes ting the patie nt using a new sampl e if clini laura indic ated. Not Available [facility] (Lab) [address], [place], [address], 04/10/2024 14:14:29 04/08/20 24 04/08/2024 WOMEN 'S HEALT H SWAB PLUS, SOFIA mechelle glabrata, tma Indete rminat e negati ve abnormal This test is indet ermin ate. Unabl e to deter mine the prese nce or absen ce of the teste d urbano te due to possi ble inter ferin g subst ances , inclu ding but not limit ed to blood or mucus . Sugge st retes ting the patie nt using a new sampl e if clini laura indic ated. Not Available [facility] (Lab) [address] [place], [address], 04/10/2024 14:14:29 04/08/20 24 04/08/2024 WOMEN 'S HEALT H SWAB PLUS, SOFIA trichomonas vaginalis, tma Indete rminat e negati ve abnormal This resul t is indet ermin ate. Unabl e to deter mine the prese nce or absen ce of the teste d urbano te due to possi ble inter ferin g subst ances , inclu ding but not limit ed to blood or mucus . Sugge st retes ting the patie nt using a new sampl e if clini laura indic ated. Not Available [facility] (Lab) [address] [place], [address], 04/10/2024 14:14:29 04/08/20 24 04/08/2024 WOMEN 'S HEALT H SWAB PLUS, SOFIA chlamydia trachomatis, PCR Negati ve negati ve Not Available [facility] (Lab) [address] [place], [address], 04/10/2024 14:14:29 04/08/20 24 04/08/2024 WOMEN 'S HEALT H SWAB PLUS, SOFIA neisseria gonorrhoeae, PCR Negati ve negati ve Bacte rial vagin osis detec ts the follo wing bacte dianna assoc iated with bacte rial vagin osis (BV): Lacto bacil shadi (L. gasse ri, L. crisp atus and L. jense lana), Gardn erell a vagin kristofer, and Atopo bium vagin ae. A singl e quali tativ e resul t is repor benjamin base on instr ument softw are to deter mine BV posit carly or negat carly statu s. The [facility] speci es group tests for C. albic ans, C. tropi calis , C. parap kin is, C. dubli niens is. Testi ng is perfo rmed using the Trans cript ion Media benjamin Ampli ficat ion metho d. Tests for Anjelica da glabr chilo, Trich omona s vagin kristofer, Chlam ydia trach omati s, and Neiss eria gonor rhoea e are also inclu ded in this panel . Not Available [facility] (Lab) [address], [place], [address], 04/10/2024 14:14:29 07/06/19 25 07/06/2024 WOMEN 'S HEALT H SWAB PLUS, SOFIA bacterial vaginosis (bv), tma Positi ve negati ve abnormal Not Available [facility] (Lab) [address] [place], [address], 07/08/2024 09:37:53 07/06/19 25 07/06/2024 WOMEN 'S HEALT H SWAB PLUS, SOFIA mechelle species, tma Negati ve negati ve Not Available [facility] (Lab) [address] [place], [address], 07/08/2024 09:37:53 07/06/1907/06/2024 WOMEN 'S HEALT H SWAB PLUS, SOFIA mechelle glabrata, tma Negati ve negati ve Not Available [facility] (Lab) [address] [place], [address], 07/08/2024 09:37:53 07/06/1907/06/2024 [facility] SOFIA trichomonas vaginalis, tma Negati ve negati ve Not Available [facility] (Lab) [address] [place], [address], 07/08/2024 09:37:53 07/06/1907/06/2024 [facility], SOFIA chlamydia trachomatis, PCR Negati ve negati ve Not Available [facility] (Lab) [address] [place], [address], 07/08/2024 09:37:53 07/06/1907/06/2024 [facility], SOFIA neisseria gonorrhoeae, PCR Negati ve negati ve Bacte rial vagin osis detec ts the follo wing bacte dianna assoc iated with bacte rial vagin osis (BV): Lacto bacil shadi (L. gasse ri, L. crisp atus and L. jense lana), Gardn erell a vagin kristofer, and Atopo bium vagin ae. A singl e quali tativ e resul t is repor benjamin base on instr ument softw are to deter mine BV posit carly or negat carly statu s. The [facility] speci es group tests for C. albic ans, C. tropi calis , C. parap kin is, C. dubli niens is. Testi ng is perfo rmed using the Trans cript ion Media benjamin Ampli ficat ion metho d. Tests for Anjelica da glabr chilo, Trich omona s vagin kristofer, Chlam ydia trach omati s, and Neiss eria gonor rhoea e are also inclu ded in this panel . Not Available [facility] (Lab) [address], [place], [address], 07/08/2024 09:37:53 09/11/19 25 09/10/2024 CT/GC AND TRICH OMONA S VAGIN KRISTOFER (RRNA ), SWAB chlamydia trachomatis, PCR Negati ve negati ve Not Available [facility] (Lab) [address], [place], [address], 09/11/2024 12:27:07 09/11/19 25 09/10/2024 CT/GC AND TRICH OMONA S VAGIN KRISTOFER (RRNA ), SWAB neisseria gonorrhoeae, PCR Negati ve negati ve Not Available [facility] (Lab) [address], [place], [address], 09/11/2024 12:27:07 09/11/19 25 09/10/2024 CT/GC AND TRICH OMONA S VAGIN KRISTOFER (RRNA ), SWAB trichomonas vaginalis ribosomal RNA (rrna) Negati ve negati ve Not Available [facility] (Lab) [address], [place], [address], 09/11/2024 12:27:07 09/11/19 25 09/10/2024 pregn rubén test, urine HCG negati ve Not Available [place] [address], [place], [address], 09/10/2024 14:54:21 Result Notes None recorded. Problems Name Problem SNOMED Code Status Onset Date Resolution Date Notes Provider Name and Address Organization Details Recorded Time Removal of intraute rine device Completed 201910/21/2020 Encounte r for removal of intraute rine contrace ptive device;P ractice ID: 0001 Yvonne Worrell [facility], [place] - [facility] 09:54:55 Increase d frequenc y of urinatio n [id number] Completed 201810/21/2020 Frequenc y of micturit ion;Preston rded Elsewher e: No Locat ion: [facility] flavia [facility] N Angélicati ce ID: 0001 Olayinka lable Time: 01:15:00 PM Yvonne Worrell [facility] 09:54:47 Insertio n of intraute rine contrace ptive device Completed 201810/21/2020 INSERTIO N OF IUD;Preston rded Elsewher e: No [facility]: N Angélicati ce ID: 0001 Olayinka lable Time: 10:30:00 AM Yvonne Worrell [facility] 09:54:50 Surveill ance of contrace ption Completed 201710/21/2020 Encounte r for surveill ance of contrace ptives, unspecif ied;Preston rded Elsewher e: No Locat ion: [facility]: N Angélicati ce ID: 0001 Olayinka lable Time: 10:30:00 AM Yvonne Worrell [facility] 09:55:07 Pregnanc y test negative [id number] Completed 201810/21/2020 Encounte r for pregnanc y test, result negative ;Recorde d Elsewher e: No Locat ion: [facility]: N Angélicati ce ID: 0001 Olayinak lable Time: 10:30:00 AM Yvonne Worrell [facility] 09:54:52 Contrace ptive sheath status [id number] Completed 201810/21/2020 Encounte r for routine checking of IUD;Preston rded Elsewher e: No Locat ion: [facility] S ource: [employer] jesusita: N Angélicati ce ID: 0001 Olayinka lable Time: 10:15:00 AM Yvonne Barrosotz gerald, [facility] 09:54:38 Urinary tract infectio us disease [id number] Completed 201810/21/2020 UTI;Preston rded Elsewher e: No Locat ion: [facility] flavia [facility] S ource: [facility] jesusita: N Practi ce ID: 0001 Olayinka lable Time: 10:30:00 AM Yvonne Worrell [facility], [facility] 09:55:09 Clinical finding Completed 201810/21/2020 Presence of IUD;Preston rded Elsewher e: No Locat ion: [facility] S ource: [facility] jesusita: N Angélicati ce ID: 0001 Olayinka lable Time: 11:45:00 AM Yvonne Worrell [facility], [facility] 09:54:35 Finding of pattern of menstrua l cycle [id number] Completed 201610/21/2020 Irregula r interval between menstrua l bleeding ;Recorde d Elsewher e: No Locat ion: [facility] S ource: [facility] jesusita: N Angélicati ce ID: 0001 Olayinka lable Time: 10:30:00 AM Yvonne Worrell gerald, [facility] 09:54:[address] Concept Completed 201810/21/2020 Encntr for general adult medical exam w/o abnormal findings ;Recorde d Elsewher e: No [facility] jesusita: N Angélicati ce ID: 0001 Olayinka lable Time: 10:30:00 AM Yvonne Worrell [facility], [facility] 09:54:[address] Concept Completed 201810/21/2020 Encntr for svp of digital exam (general ) (routine ) w/o abn findings ;Recorde d Elsewher e: No Locat ion: Mervin alejandro [facility] S ource: [facility] [employer]ce [employer] jesusita: N Angélicati ce ID: 0001 Olayinka lable Time: 03:00:00 PM Yvonne Worrell gerald, [facility] 09:55:05 Acute vaginiti s [id number] Completed 201810/21/2020 Acute vaginiti s;Record ed Elsewher e: No Locat ion: Bettie flavia [facility] S ource: [employer] jesusita: N Angélicati ce ID: 0001 Olayinka lable Time: 11:15:00 AM Yvonne Worrell [facility] 09:54:33 Evaluati on finding Completed 201810/21/2020 Hematuri a, unspecif ied;Preston rded Elsewher e: No Locat ion: Mervin alejandro [facility] S ource: [facility] [employer] jesusita: N Angélicati ce ID: 0001 Olayinka lable Time: 01:15:00 PM Yvonne Worrell [facility], [facility] 09:54:[address] Concept Completed 201810/21/2020 Encntr for routine child health exam w/o abnormal findings ;Recorde d Elsewher e: No Locat ion: Mervin alejandro [facility] S ource: [facility] [employer] jesusita: N Angélicati ce ID: 0001 Olayinka lable Time: 03:00:00 PM Yvonne Worrell gerald [facility] 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 09:54:31 Blood leukocyt e number above referenc e range [id number] Completed 201810/21/2020 Elevated white blood cell count, unspecif ied;Prac yancy ID: 0001 Yvonne Worrell [facility], [facility] 1 09:54:45 Pregnanc y [id number] Completed 202202/15/2023 Mavis Jara [facility] 3 17:07:41 Mental disorder [id number] Completed [facility] Petty Paredes every 2wk appts; was previous ly told anx/dep/ bipolar. current psych (per pt) says autism and borderli ne personal ity disorder . sees psych at [facility] q 2 mos. on buspar, prozac, lamictal .- M Mavis Jara [facility] 3 17:07:33 Mental disorder [id number] Active [facility]. Petty Paredes every 2wk appts; was previous ly told anx/dep/ bipolar. current psych (per pt) says autism and borderli ne personal ity disorder . sees psych at [facility] q 2 mos. on buspar, prozac, lamictal .- MFM Mavis Jara [facility] 3 17:07:33 Gestatio nal diabetes mellitus [id number] Completed 2022 rule in 11/01 Mavis Jara [facility] 3 17:07:33 Anemia [id number] Completed 2022 1 tab slowfe twice daily Mavis Jara [facility] 3 17:07:33 Notes:LAST PAP WAS DONE 08/20 NEGATIVE WITH YEAST Problem Notes None recorded. Procedures Surgical History Date Name Laterality Status Provider Name and Address Organization Details Recorded Time 09/11/19 24 IUD Removal completed Yoanna Dumont, ARMANDO [address], [place], [address], [facility] 09/11/2023 16:16:35 08/14/19 24 IUD Insertion completed Yoanna Dumont CNM [address], [place], [address], [facility] 08/14/2023 14:56:21 12/23/[address] [facility] 12/12/2022 12:01:52 01/23/[address] [facility] 09/20/2021 10:38:47 08/20/19 19 Date of Last Pap Smear completed [facility] 11/13/2021 09:59:09 06/24/19 06 operation on oral cavity completed [facility] 10/21/2020 09:57:24 Imaging Results None recorded. Procedure Notes None recorded. Medical Equipment None Reported. Allergies Allergen ID Allergen Name Allergen Category Reaction Reaction Severity Criticality Documentation Date Start Date Code Code System Note Provider Name and Address Organization Details Recorded Time 69778 honey bee venom environme nt hives severe Not available 11/13/2021 38782 7 RxNorm [facility] 09:58:21 Medications Name Sig Start Date Stop Date Status Note LastModified by Organization Details LastModified Time fluoxetin e 40 mg capsule 04/08 completed Not Available Not Available Not Available hydroxyzi ne HCl 25 mg/mL intramusc ular solution inject 2 millilit er by intramus cular route every 6 hours as needed 07/24 completed Prescrib ed Elsewher e: Yes Loca tion: Mervin alejandro [facility] M odify By: krystin tz Encou nter DateTime : 09/10/19 18 10:30:00 AM Not Available Not Available Not Available amoxicill in 500 mg capsule 04/08 completed Not Available Not Available Not Available Mirena 21 mcg/24 hr (up to 8 years) 52 mg intrauter ine device Take 1 device by intraute rine route. 10/13 completed Not Available Not Available Not Available buspirone 5 mg tablet take 1 tablet by oral route 3 times every day 09/20 completed Not Available Not Available Not Available lamotrigi ne 150 mg tablet 09/10 completed Not Available Not Available Not Available silver sulfadiaz ine 1 % topical cream APPLY A 1/16 INCH (1.5 MM) THICK LAYER TO ENTIRE AREA BY TOPICAL ROUTE 2 TIMES PER DAY 05/24 completed Not Available Not Available Not Available terconazo le 0.4 % vaginal cream Insert 1 applicat orful every day by vaginal route for 7 days. 07/06 completed Not Available Not Available Not Available venlafaxi ne ER 37.5 mg capsule,e xtended release 24 hr 12/26 completed Not Available Not Available Not Available metoclopr amide 5 mg/mL injection solution 11/14 completed Not Available Not Available Not Available venlafaxi ne 75 mg tablet take 1 tablet by oral route 2 times every day with food 10/21 completed Prescrib ed Elsewher e: Yes Loca tion: [facility] odify By: etienne welch DateTime : 12/20/19 02:00:00 PM Not Available Not Available Not Available trazodone 50 mg tablet active Not Available Not Available Not Available Stool Softener 100 mg capsule Take 1 capsule every day by oral route. 09/20 completed Not Available Not Available Not Available azithromy edgar 250 mg tablet TAKE 2 TABLETS (500 MG) BY ORAL ROUTE ONCE DAILY FOR 1 DAY THEN 1 TABLET (250 MG) BY ORAL ROUTE ONCE DAILY FOR 4 DAYS 12/19 completed Not Available Not Available Not Available glyburide 5 mg tablet 02/22 completed Not Available Not Available Not Available fluconazo le 150 mg tablet take 1 now and 1 in 48 hours 09/10 completed Not Available Not Available Not Available glyburide 2.5 mg tablet Take 1 tablet every day by oral route at bedtime. 02/22 completed Not Available Not Available Not Available ampicilli n 500 mg capsule take one capsule by mouth twice daily for 10 days 09/14 completed Prescrib ed Elsewher e: No Locat ion: Mervin alejandro [facility] odify By: [email or web address] z Encoun ter DateTime : 12/20/19 19 02:00:00 PM Not Available Not Available Not Available valacyclo vir 1 gram tablet TAKE 2 TABLETS BY MOUTH TWICE DAILY FOR 1 DAY 10/13 completed Not Available Not Available Not Available cephalexi n 250 mg capsule 11/13 completed Not Available Not Available Not Available metronida zole 0.75 % (37.5 mg/5 gram) vaginal gel Insert 1 applicat orful every day by vaginal route at bedtime. 09/10 completed Not Available Not Available Not Available ondansetr on HCl 4 mg tablet take 1 tablet by mouth every 4-6 hours as needed 09/19 completed Not Available Not Available Not Available terconazo le 0.8 % vaginal cream Insert 1 applicat orful every day by vaginal route for 3 days. 07/06 completed Not Available Not Available Not Available penicilli n V potassium 500 mg tablet TAKE 1 TABLET BY MOUTH TWICE DAILY FOR 10 DAYS 07/06 completed Not Available Not Available Not Available clotrimaz ole 1 % vaginal cream Insert 1 applicat orful every day by vaginal route at bedtime for 7 days. 07/06 completed Not Available Not Available Not Available metronida zole 500 mg tablet Take 1 tablet twice a day by oral route for 7 days. 09/10 completed Not Available Not Available Not Available triamcino lone acetonide 0.1 % topical cream 07/06 completed Not Available Not Available Not Available bupropion HCl SR 100 mg tablet,12 hr sustained -release active Not Available Not Available Not Available lamotrigi ne 25 mg tablet 03/08 completed Not Available Not Available Not Available amoxicill in 875 mg tablet 11/13 completed Not Available Not Available Not Available Zoloft 50 mg tablet take 1 tablet by oral route every day 07/24 completed Prescrib ed Elsewher e: Yes Loca tion: Mervin [facility] odify By: krystin tz Juvencioou nter DateTime : 09/01/19 17 10:30:00 AM Not Available Not Available Not Available OneTouch Ultra Test strips 02/22 completed Not Available Not Available Not Available phenazopy ridine 100 mg tablet 09/20 completed Not Available Not Available Not Available cephalexi n 500 mg capsule Take 1 capsule every 12 hours by oral route for 7 days. 02/01 completed Not Available Not Available Not Available venlafaxi ne 37.5 mg tablet 09/20 completed Not Available Not Available Not Available ferrous sulfate 325 mg (65 mg iron) tablet Take 1 tablet every day by oral route. 10/21 completed Not Available Not Available Not Available fluoxetin e 20 mg tablet 06/07 completed Not Available Not Available Not Available Cipro 500 mg tablet take 1 tablet by oral route every 12 hours 09/14 completed Prescrib ed Lucilleher e: No Locat ion: [facility] odify By: [email or web address] z Encoun ter DateTime : 12/19/19 11:57:11 AM Not Available Not Available Not Available nystatin 100,000 unit/gram topical cream 07/06 completed Not Available Not Available Not Available buspirone 10 mg tablet Take 1 tablet twice a day by oral route. 2024 active Not Available Not Available Not Avai lable prednison e 50 mg tablet 09/20 completed Not Available Not Available Not Available Humulin N NPH U-100 Insulin (isophane susp) 100 unit/mL subcutane ous Inject 5 units every day by subcutan eous route at bedtime. 02/22 completed Not Available Not Available Not Available nystatin- triamcino lone 100,000 unit/g-0. 1 % topical cream APPLY TO THE AFFECTED AREA(S) BY TOPICAL ROUTE 2 TIMES PER DAY IN THE MORNING AND EVENING 07/06 completed Not Available Not Available Not Available fluoxetin e 10 mg capsule take 2 capsule by oral route every day 09/10 completed Not Available Not Available Not Available omeprazol e 20 mg capsule,d elayed release 11/13 completed Not Available Not Available Not Available lorazepam 1 mg tablet 07/06 completed Not Available Not Available Not Available ibuprofen 600 mg tablet 02/22 completed Not Available Not Available Not Available estradiol 0.01% (0.1 mg/gram) vaginal cream apply nightly to area x 2 weeks then every other day 07/09 completed Not Available Not Available Not Available albuterol sulfate HFA 90 mcg/actua tion aerosol inhaler 2 puffs every four hours as needed 05/24 completed Not Available Not Available Not Available ondansetr on 4 mg disintegr ating tablet Place 1 tablet every 6 hours by translin gual route. 02/22 completed Not Available Not Available Not Available fluoxetin e 20 mg capsule active Not Available Not Available Not Available clotrimaz ole 1 % topical cream 07/06 completed Not Available Not Available Not Available doxycycli ne hyclate 100 mg tablet 09/10 completed Not Available Not Available Not Available lamotrigi ne 100 mg tablet active Not Available Not Available Not Available metoclopr amide 10 mg tablet Take 1 tablet 4 times a day by oral route. 11/14 completed Not Available Not Available Not Available amoxicill in 875 mg-potass ium clavulana te 125 mg tablet 06/07 completed Not Available Not Available Not Available amoxicill in 500 mg-potass ium clavulana te 125 mg tablet 06/07 completed Not Available Not Available Not Available buspirone 15 mg tablet active Not Available Not Available Not Available etonogest rel 0.12 mg-ethiny l estradiol 0.015 mg/24 hr vaginal ring INSERT 1 VAGINAL RING BY VAGINAL ROUTE AND KEEP IN PLACE FOR 3 WEEKS EACH MONTH. REMOVE FOR ONE WEEK THEN INSERT A NEW RING. 09/10 completed Not Available Not Available Not Available azithromy edgar 500 mg tablet 09/10 completed Not Available Not Available Not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 [place], [address], [facility] 10/14/2023 15:35:23 4 text/html Patient presents for STD testing. Recent infidelity of partner, no known exposure. Some abnormal discharge but no pruritis. Would like vaginal swab however no blood testing due to hx of vasovagal episode. Has had some irregular periods recently however she believes these are due to stress. TYLER COX MD [address], [place], [address], [facility] 04/08/2024 15:58:02 5 text/html 19yopresents for vaginal discharge/odorwhite/thi ck dischargeneg itchingneg n/v/fneg pelvic painwould like STI testing todayTTC , LMP 06/24/2024 Celeste Carcamo null, [facility] 09/10/2024 14:51:32 5 text/html 19yopresents for STI testingpt states (+) chlamydia diagnosed at the beginning of the month at . Both her and her partner completed treatment.[facility] Renae Donnelly, PETER [address], [place], [address], [facility] 09/10/2024 14:55:26 OBGyn Episode Ob Episode Information Episode Created Date Number of Fetuses Patient Bloodtype Patient rh Status Prepregnancy Weight lbs Domestic Partner Domestic Partner Phone Father Name Plumbing Installer Status 07/23/19 23 1 A Positive 187 CLOSED Fetus Data First Name Last Name Admitted to NICU Weight (g) Sex Living Outcome Pediatric Complications Fetus ID Race Codes Race Delivery Type [place] 3883.88 15 M true Full Term thin mec 13394 Vaginal Delivery Problems Problem Notes [facility][phone] appr carroll for IV care subq injectionsPT DECLINES FURTHER APPTS WITH [facility] lamictal - next appt 08/31/22 u/s only - [facility] rec that pt be closely managed by prescribing physician of her mental health medications she is currently on. States that [facility] would be happy to discuss with this provider treatment options upon request. MARYAM Camacho states l/m with Petty Paredes to release EPDS 18 score no thoughts harming self - pt sees provider every 2 wks currently.Offered carrier screen for fxs (still deciding per MARYAM Camacho), cf, and sma (NEG); check hgb electrophoresis, iron stores, and rbc folate IF HGB/HCT LOW, early anatomy assess at 16 wks, serum screen for NTDs at 15-18wks by AFP or MMS, anatomy at 20wks, serial growth thereafter q4wks, testing tbd, delivery tbd.[facility] 10/29 730 u/s history of cold sores- NO genital HSV everurine culture wnl Problem Name Start Date End Date Resolution Snomed Code Not e Mental disorder [id number] [facility] Dr. Petty Paredes every 2wk appts; was previously told anx/dep/bipolar. current psych (per pt) says autism and borderline personality disorder. sees psych at [facility] q 2 mos. on buspar, prozac, lamictal.- MFM Anemia 12/27/2022 MEDICATION [id number] 1 tab sl owfe twice daily Gestational diabetes mellitus 11/01/2022 [id number] rule in 11/01 Yusef Calculation Initial Yusef Date Initial Exam Date Initial Exam Provider Initial Ultrasound Date Last Menstrual Period Date Ultra Sound Weeks Gestation 02/10/2023 07/23/2022 07/06/2022 05/06/2022 8 Eighteen To Twenty Week Yusef Update Ultra Sound Date Fundal Height At Umbil Quickening Date Ultra Sound Latest Weeks Gestation Final Yusef Confirmed By Final Yusef Confirmed Date Final Yusef Date Ultra Sound Latest Days Gestation 0 [email or web address] 07/23/2022 02/11/20 23 0 Pre- Flowsheet Flowsheet Date 07/23/2022 Green Score Blood Edema Fundus Height Fundus Units Glucose Ketones Leukocytes Nitrite Labor Signs Protein Cervic Dilation Cervic Effacement Cervic Station neg none none trace Type Weight in lbs Pre/Post Dialysis Refused Weight 187.062349474217 BP Diastolic BP Location Tested BP Systolic BP Type 70 129 Fetus Heart Rate Present A 140 Fetus Movement A No Comments Lilia is a 17yo w ho presents for care at 11.1. She has a history of anxiety/depression/bipolar and is on lamictal/prozac/buspar, but she states her current psychiatrist at [facility] (cannot remember name, will send it to us on portal) has said her actual diagnoses are autism and borderline personality disorder. SHe has an appt next week with [facility] for lamictal in . Her nausea and vomiting is slowly improving. Her labs are done and she had a normal NIPT. Normal NT today. SHe has a history of cold sores but never genital lesions of any sort. Routine care. Flowsheet Date 08/01/2022 Green Score Blood Edema Fundus Height Fundus Units Glucose Ketones Leukocytes Nitrite Labor Signs Protein Cervic Dilation Cervic Effacement Cervic Station Type Weight in lbs Pre/Post Dialysis Refused BP Diastolic BP Location Tested BP Systolic BP Type Fetus Heart Rate Present Fetus Movement Comments Flowsheet Date 08/22/2022 Green Score Blood Edema Fundus Height Fundus Units Glucose Ketones Leukocytes Nitrite Labor Signs Protein Cervic Dilation Cervic Effacement Cervic Station neg none none trace Type Weight in lbs Pre/Post Dialysis Refused Weight 185.204930053978 BP Diastolic BP Location Tested BP Systolic BP Type 70 114 Fetus Heart Rate Present A 155 Fetus Movement A Yes Comments patient is having vaginal pa in, pelvic pain, no bleeding back pain, nausea and vomiting reglan not helping. Reviewed education, has MFM appt scheduled, needs refill on dissolving zofran, precautions reviewed, discussed Tdap rec for family and friends Flowsheet Date 09/19/2022 Green Score Blood Edema Fundus Height Fundus Units Glucose Ketones Leukocytes Nitrite Labor Signs Protein Cervic Dilation Cervic Effacement Cervic Station neg trace none trace Type Weight in lbs Pre/Post Dialysis Refused Weight 191.151634295610 BP Diastolic BP Location Tested BP Systolic BP Type 76 123 Fetus Heart Rate Present Fetus Movement A Yes Comments patient states that is havin g some pain, BH contractions, swelling, nausea and vomiting. do not suspect hernia upon exam today discussed using lateral muscles, ice if needed, precautions reviewed. cannot breastfeed on limictal will talk to her prescribing md, sees mfm soon for US, precautions reviewed Flowsheet Date 10/17/2022 Green Score Blood Edema Fundus Height Fundus Units Glucose Ketones Leukocytes Nitrite Labor Signs Protein Cervic Dilation Cervic Effacement Cervic Station neg none none trace Type Weight in lbs Pre/Post Dialysis Refused Weight 201.573421295462 BP Diastolic BP Location Tested BP Systolic BP Type 60 138 Fetus Heart Rate Present Fetus Movement A Yes Comments patient states that having s ome BH contractions, swelling, nausea and vomiting. Patient also states that having issues with blood sugar. has taken random bs, elevated but not fasting or 1 hr post prandial will call out meter and strips, review in one week with RM, disc protein with each meal/snack, +FM has MFM appt in a couple weeks for growth, precautions reviewed Flowsheet Date 11/06/2022 Green Score Blood Edema Fundus Height Fundus Units Glucose Ketones Leukocytes Nitrite Labor Signs Protein Cervic Dilation Cervic Effacement Cervic Station Type Weight in lbs Pre/Post Dialysis Refused BP Diastolic BP Location Tested BP Systolic BP Type Fetus Heart Rate Present Fetus Movement Comments Flowsheet Date 11/14/2022 Green Score Blood Edema Fundus Height Fundus Units Glucose Ketones Leukocytes Nitrite Labor Signs Protein Cervic Dilation Cervic Effacement Cervic Station neg none 29 none trace Type Weight in lbs Pre/Post Dialysis Refused Weight 210.072028276983 BP Diastolic BP Location Tested BP Systolic BP Type 80 128 Fetus Heart Rate Present A 155 Fetus Movement A Yes Comments patient is having some nause a and vomiting. GDM, fastings ok, some meals elevated, reviewed decrease toaster strudels, no waffles/syrup/ limit pizza, offered alternatives and questions answered. discussed increase risks if we start insulin including LGA, lung immaturity and . precautions reviewed, will schedule antental testing Flowsheet Date 11/28/2022 Green Score Blood Edema Fundus Height Fundus Units Glucose Ketones Leukocytes Nitrite Labor Signs Protein Cervic Dilation Cervic Effacement Cervic Station neg none 30 none trace Type Weight in lbs Pre/Post Dialysis Refused Weight 209.854537190210 BP Diastolic BP Location Tested BP Systolic BP Type 76 137 Fetus Heart Rate Present A 144 Fetus Movement A Yes Comments patient states that having s ome cramping, back pain, round ligament pain, swelling and nausea. 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 plan small meals even if not hungry while sickprecautions reviewed all testing scheduledlungs clear bilaterally Flowsheet Date 12/10/2022 Green Score Blood Edema Fundus Height Fundus Units Glucose Ketones Leukocytes Nitrite Labor Signs Protein Cervic Dilation Cervic Effacement Cervic Station Type Weight in lbs Pre/Post Dialysis Refused BP Diastolic BP Location Tested BP Systolic BP Type Fetus Heart Rate Present Fetus Movement Comments Flowsheet Date 12/19/2022 Green Score Blood Edema Fundus Height Fundus Units Glucose Ketones Leukocytes Nitrite Labor Signs Protein Cervic Dilation Cervic Effacement Cervic Station Type Weight in lbs Pre/Post Dialysis Refused BP Diastolic BP Location Tested BP Systolic BP Type Fetus Heart Rate Present Fetus Movement Comments Flowsheet Date 12/19/2022 Green Score Blood Edema Fundus Height Fundus Units Glucose Ketones Leukocytes Nitrite Labor Signs Protein Cervic Dilation Cervic Effacement Cervic Station Type Weight in lbs Pre/Post Dialysis Refused BP Diastolic BP Location Tested BP Systolic BP Type Fetus Heart Rate Present Fetus Movement Comments Flowsheet Date 12/19/2022 Green Score Blood Edema Fundus Height Fundus Units Glucose Ketones Leukocytes Nitrite Labor Signs Protein Cervic Dilation Cervic Effacement Cervic Station neg none none trace Type Weight in lbs Pre/Post Dialysis Refused Weight 214.962812885495 BP Diastolic BP Location Tested BP Systolic BP Type 64 118 Fetus Heart Rate Present Fetus Movement A Yes Comments bpp 01/31 NST nr, 2 prlonged, not deep, about 1.5-2 minutes, moderate variability and accels, to ld for further monitoringneeds new test strips for glucometer, baby LGA 92% does not have log with her Flowsheet Date 12/26/2022 Green Score Blood Edema Fundus Height Fundus Units Glucose Ketones Leukocytes Nitrite Labor Signs Protein Cervic Dilation Cervic Effacement Cervic Station Type Weight in lbs Pre/Post Dialysis Refused BP Diastolic BP Location Tested BP Systolic BP Type Fetus Heart Rate Present Fetus Movement Comments Flowsheet Date 12/26/2022 Green Score Blood Edema Fundus Height Fundus Units Glucose Ketones Leukocytes Nitrite Labor Signs Protein Cervic Dilation Cervic Effacement Cervic Station Type Weight in lbs Pre/Post Dialysis Refused BP Diastolic BP Location Tested BP Systolic BP Type Fetus Heart Rate Present Fetus Movement Comments Flowsheet Date 12/26/2022 Green Score Blood Edema Fundus Height Fundus Units Glucose Ketones Leukocytes Nitrite Labor Signs Protein Cervic Dilation Cervic Effacement Cervic Station neg trace none trace Type Weight in lbs Pre/Post Dialysis Refused Weight 215.321938114466 BP Diastolic BP Location Tested BP Systolic BP Type 74 145 70 139 Fetus Heart Rate Present Fetus Movement A Yes Comments patient is having some cramp ing, discharge, swelling and nausea. did not bring BS log, encouraged to bring, will have rn call. discussed need for tight control or risk of lung immaturity, LGA, . BPP 01/29, education done. check to call for preadmit. precautions [id number] - BS log reviewed. Pt has two elevated fasting blood sugars of 102 & 107 and multiple elevated post prandial blood sugars ranging from 146-217. Pt had BBQ, Villegas's, and desserts at a December holiday constitution party. Diet discussed. BS log reviewed with SP. Per SP, pt instructed to make diet changes and SP will review BS log again next week but if blood sugars do not improve, insulin may be necessary. Pt verbalized understanding but states she does not want to be on insulin. Pt will make diet changes and bring blood sugar log for her appts next week. Nica Stinson RN Flowsheet Date 01/02/2023 Green Score Blood Edema Fundus Height Fundus Units Glucose Ketones Leukocytes Nitrite Labor Signs Protein Cervic Dilation Cervic Effacement Cervic Station Type Weight in lbs Pre/Post Dialysis Refused BP Diastolic BP Location Tested BP Systolic BP Type Fetus Heart Rate Present Fetus Movement Comments Flowsheet Date 01/02/2023 Green Score Blood Edema Fundus Height Fundus Units Glucose Ketones Leukocytes Nitrite Labor Signs Protein Cervic Dilation Cervic Effacement Cervic Station Type Weight in lbs Pre/Post Dialysis Refused BP Diastolic BP Location Tested BP Systolic BP Type Fetus Heart Rate Present Fetus Movement Comments Flowsheet Date 01/02/2023 Green Score Blood Edema Fundus Height Fundus Units Glucose Ketones Leukocytes Nitrite Labor Signs Protein Cervic Dilation Cervic Effacement Cervic Station neg none none trace Type Weight in lbs Pre/Post Dialysis Refused Weight 218.198585212609 BP Diastolic BP Location Tested BP Systolic BP Type 82 141 Fetus Heart Rate Present Fetus Movement A Yes Comments patient is having contractio ns, discharge, and nausea. bpp 01/29 did not bring bs log encouraged to bring log, was in LD for cntx, slowed down cervix was closed, reviewed ptl precautions Flowsheet Date 01/09/2023 Green Score Blood Edema Fundus Height Fundus Units Glucose Ketones Leukocytes Nitrite Labor Signs Protein Cervic Dilation Cervic Effacement Cervic Station Type Weight in lbs Pre/Post Dialysis Refused BP Diastolic BP Location Tested BP Systolic BP Type Fetus Heart Rate Present Fetus Movement Comments Flowsheet Date 01/09/2023 Green Score Blood Edema Fundus Height Fundus Units Glucose Ketones Leukocytes Nitrite Labor Signs Protein Cervic Dilation Cervic Effacement Cervic Station Type Weight in lbs Pre/Post Dialysis Refused BP Diastolic BP Location Tested BP Systolic BP Type Fetus Heart Rate Present Fetus Movement Comments Flowsheet Date 01/09/2023 Green Score Blood Edema Fundus Height Fundus Units Glucose Ketones Leukocytes Nitrite Labor Signs Protein Cervic Dilation Cervic Effacement Cervic Station neg none none trace 1cm 50% -2 Type Weight in lbs Pre/Post Dialysis Refused Weight 218.422905366663 BP Diastolic BP Location Tested BP Systolic BP Type 69 109 Fetus Heart Rate Present Fetus Movement A Yes Comments patient is having some pain, BH contractions, nausea and vomiting. Pt did not bring BS log, admits to drinking lots of pineapple juice daily do not rec pineapple juice at all with GDM, disc dangers r/t to weight/, pt unsure she wants to stop drinking use. BPP 01/29 has growth at next visit. GBS today precautions reviewed Flowsheet Date 01/16/2023 Green Score Blood Edema Fundus Height Fundus Units Glucose Ketones Leukocytes Nitrite Labor Signs Protein Cervic Dilation Cervic Effacement Cervic Station Type Weight in lbs Pre/Post Dialysis Refused BP Diastolic BP Location Tested BP Systolic BP Type Fetus Heart Rate Present Fetus Movement Comments Flowsheet Date 01/16/2023 Green Score Blood Edema Fundus Height Fundus Units Glucose Ketones Leukocytes Nitrite Labor Signs Protein Cervic Dilation Cervic Effacement Cervic Station Type Weight in lbs Pre/Post Dialysis Refused BP Diastolic BP Location Tested BP Systolic BP Type Fetus Heart Rate Present Fetus Movement Comments Flowsheet Date 01/16/2023 Green Score Blood Edema Fundus Height Fundus Units Glucose Ketones Leukocytes Nitrite Labor Signs Protein Cervic Dilation Cervic Effacement Cervic Station neg none none trace Type Weight in lbs Pre/Post Dialysis Refused Weight 219.697017511248 BP Diastolic BP Location Tested BP Systolic BP Type 70 109 Fetus Heart Rate Present Fetus Movement A Yes Comments patient is having some pain, contractions, and nausea. EFW 7lb 7 oz, wants IOL scheduled will schedule 02/08 at 1201, pitocin, cont gdm diet will call for numbers, says has stopped juice, precautions, call for preadmit Flowsheet Date 01/23/2023 Green Score Blood Edema Fundus Height Fundus Units Glucose Ketones Leukocytes Nitrite Labor Signs Protein Cervic Dilation Cervic Effacement Cervic Station Type Weight in lbs Pre/Post Dialysis Refused BP Diastolic BP Location Tested BP Systolic BP Type Fetus Heart Rate Present Fetus Movement Comments Flowsheet Date 01/23/2023 Green Score Blood Edema Fundus Height Fundus Units Glucose Ketones Leukocytes Nitrite Labor Signs Protein Cervic Dilation Cervic Effacement Cervic Station Type Weight in lbs Pre/Post Dialysis Refused BP Diastolic BP Location Tested BP Systolic BP Type Fetus Heart Rate Present Fetus Movement Comments Flowsheet Date 01/23/2023 Green Score Blood Edema Fundus Height Fundus Units Glucose Ketones Leukocytes Nitrite Labor Signs Protein Cervic Dilation Cervic Effacement Cervic Station neg none none trace 2cm 50% -2 Type Weight in lbs Pre/Post Dialysis Refused Weight 220.225943417505 BP Diastolic BP Location Tested BP Systolic BP Type 75 137 Fetus Heart Rate Present Fetus Movement A Yes Comments patient is having some pain, contractions, pain with urination and nausea. reviewed precautions, c/o nipple infection on right, took piercings out now are bloody and pus is coming from one side, will need to monitor after infection to see if blood resolved, may need imaging, keflex to pharmacy precautions reviewed, labor prec. f/u one week, iol at 39 weeks Flowsheet Date 01/30/2023 Green Score Blood Edema Fundus Height Fundus Units Glucose Ketones Leukocytes Nitrite Labor Signs Protein Cervic Dilation Cervic Effacement Cervic Station Type Weight in lbs Pre/Post Dialysis Refused BP Diastolic BP Location Tested BP Systolic BP Type Fetus Heart Rate Present Fetus Movement Comments Flowsheet Date 01/30/2023 Green Score Blood Edema Fundus Height Fundus Units Glucose Ketones Leukocytes Nitrite Labor Signs Protein Cervic Dilation Cervic Effacement Cervic Station Type Weight in lbs Pre/Post Dialysis Refused BP Diastolic BP Location Tested BP Systolic BP Type Fetus Heart Rate Present Fetus Movement Comments Flowsheet Date 01/30/2023 Green Score Blood Edema Fundus Height Fundus Units Glucose Ketones Leukocytes Nitrite Labor Signs Protein Cervic Dilation Cervic Effacement Cervic Station neg none none trace 3cm 60% -2 Type Weight in lbs Pre/Post Dialysis Refused Weight 223.811138456460 BP Diastolic BP Location Tested BP Systolic BP Type 79 124 Fetus Heart Rate Present Fetus Movement A Yes Comments patient is having some pain, contractions and nausea. moved IOL to 02/06 at 0500, encouraged diabetic diet, taking glyburide, labor precautions will have rn call forgot blood sugar log bpp 8/8 Flowsheet Date 02/01/2023 Green Score Blood Edema Fundus Height Fundus Units Glucose Ketones Leukocytes Nitrite Labor Signs Protein Cervic Dilation Cervic Effacement Cervic Station neg none none trace Type Weight in lbs Pre/Post Dialysis Refused Weight [id number] BP Diastolic BP Location Tested BP Systolic BP Type 84 149 82 134 Fetus Heart Rate Present Fetus Movement A Yes Comments patient states that is shaky , weak, contractions, discharge and nausea. after meal blood sugar this am 123, will move IOL to saturday at midnight. NST R, blood draw, precautions reviewed, anxiety high, very nervous, education and precautions reviewed discussed with dr. alvarado Flowsheet Date 02/01/2023 Green Score Blood Edema Fundus Height Fundus Units Glucose Ketones Leukocytes Nitrite Labor Signs Protein Cervic Dilation Cervic Effacement Cervic Station Type Weight in lbs Pre/Post Dialysis Refused BP Diastolic BP Location Tested BP Systolic BP Type 82 134 Fetus Heart Rate Present Fetus Movement Comments Menstrual History Last Menstrual Date Menses Monthly On Bcp Conception Prior Menses Frequency Hcg Plus Date Menarche Onset Age 1105/06/2022 Genetic Screening And Infection History Question Response Note Mental Retardation/Autism false Patient's Age Will Be 35 Years Or Older At Estim ated Date of Delivery false Thalassemia (Turkish, Hungarian, Mediterranean, Or Background): MCV < 80 false Neural Tube Defect (Meningomyelocele, Spina Bifi da, Or Anencephaly) false Congenital Heart Defect false Down Syndrome false Dedrick-Sachs (eg, Protestant, Cajun, Bulgarian-Iraqi) f alse Boyd Disease false Sickle Cell Disease Or Trait () false Hemophilia Or Other Blood Disorders false Muscular Dystrophy false Cystic Fibrosis false Taiwo's Chorea false Intellectual Disability/Autism false If Yes, Was Person Tested For Fragile X? false Other Inherited Genetic Or Chromosomal Disorder false Maternal Metabolic Disorder (eg, Type 1 Diabetes , PKU) false Patient Or Baby's Father Had A Child With Defects Not Listed Above false Recurrent Loss, Or A Stillbirth false Medications (including Suppl ements, Vitamins, Herbs, OTC Drugs), Illicit/Recreational Drugs, Alcohol true If Yes, Agent(s) And Strength/Dosage false Any Other Genetic History false Live With Someone With TB Or Exposed To TB false Patient Or Partner Has History Of Genital Herpes false Rash Or Viral Illness Since Last Menstrual Perio d false History Of STD, Gonorrhea, Chlamydia, HPV, Syphi lis false Other Infection History false History of HIV false History of Hepatitis false Prior GBS-infected child false Hemoglobinopathy Or Carrier false Other Structural Defect false Recent Travel History Outside of Country false Delivery Information Delivery Date Delivery Type Labor Anesthesia Weeks Gestation Incision Type Labor Labor Length Hrs Delivered By Post Complications Tubal Sterilization Discharge Date Comments 3 Induce d Regional-Ep idural 39.1 false Yoanna Dumont CNM Anemia, Gestation al diabetes mellitus Discharge Information Feeding Method Contraceptive Method Maternal HG B and HCT Levels Ob Episode Information Episode Created Date Number of Fetuses Patient Bloodtype Patient rh Status Prepregnancy Weight lbs Domestic Partner Domestic Partner Phone Father Name Plumbing Installer Status 07/06/19 23 1 CLOSED Fetus Data First Name Last Name Admitted to NICU Weight (g) Sex Living Outcome Pediatric Complications Fetus ID Race Codes Race Delivery Type , Spontane ous [id number] Yusef Calculation Initial Yusef Date Initial Exam Date Initial Exam Provider Initial Ultrasound Date Last Menstrual Period Date Ultra Sound Weeks Gestation 0 Eighteen To Twenty Week Yusef Update Ultra Sound Date Fundal Height At Umbil Quickening Date Ultra Sound Latest Weeks Gestation Final Yusef Confirmed By Final Yusef Confirmed Date Final Yusef Date Ultra Sound Latest Days Gestation 0 0 Menstrual History Last Menstrual Date Menses Monthly On Bcp Conception Prior Menses Frequency Hcg Plus Date Menarche Onset Age Delivery Information Delivery Date Delivery Type Labor Anesthesia Weeks Gestation Incision Type Labor Labor Length Hrs Delivered By Post Complications Tubal Sterilization Discharge Date Comments 9 Discharge Information Feeding Method Contraceptive Method Maternal HG B and HCT Levels Ob Episode Information Episode Created Date Number of Fetuses Patient Bloodtype Patient rh Status Prepregnancy Weight lbs Domestic Partner Domestic Partner Phone Father Name Plumbing Installer Status 07/23/19 23 1 CLOSED Fetus Data First Name Last Name Admitted to NICU Weight (g) Sex Living Outcome Pediatric Complications Fetus ID Race Codes Race Delivery Type , Induced [id number] Yusef Calculation Initial Yusef Date Initial Exam Date Initial Exam Provider Initial Ultrasound Date Last Menstrual Period Date Ultra Sound Weeks Gestation 0 Eighteen To Twenty Week Yusef Update Ultra Sound Date Fundal Height At Umbil Quickening Date Ultra Sound Latest Weeks Gestation Final Yusef Confirmed By Final Yusef Confirmed Date Final Yusef Date Ultra Sound Latest Days Gestation 0 0 Menstrual History Last Menstrual Date Menses Monthly On Bcp Conception Prior Menses Frequency Hcg Plus Date Menarche Onset Age Delivery Information Delivery Date Delivery Type Labor Anesthesia Weeks Gestation Incision Type Labor Labor Length Hrs Delivered By Post Complications Tubal Sterilization Discharge Date Comments 2 Discharge Information Feeding Method Contraceptive Method Maternal HG B and HCT Levels
--- OUTSIDE RECORDS SUMMARY | 2024-10-13 15:46 | XMS_ITS | Encounter Summary ---
Author Organization [facility] Address [address] [place] [address] Phone Care Team Providers Care General Freight Agent Name Role Phone Ondina Chacko Primary Care Provider + Reason for Visit * Reason Comments Medication Refill Encounter Details Date Type Department Care Team (Late st Contact Info) Description 09/29/2021 [facility]ill [facility] [address] [place] [address] Ondina Chacko PAC [address] [place] [address] Medication Refill Social History Tobacco Use Types [...] Kelly 03/27/21 Office Visit Ondina Chacko PAC [facility] Robin Showing recent visits within past 365 [...] documented as of this encounter Care Teams General Freight Agent Relationship Specialty Start Date End Date Ondina Chacok PAC [address] [place] [address] PCP - General Physician County Agricultural Agent 03/27/21 06/27/24 documented as of this encounter
== END 2024-10-13 14:34 | disposition home or self-care (01) ==
PROVIDERS: Emergency Provider Nurse Practitioner Family
DX: H66.001 Acute suppurative otitis media without spontaneous rupture of ear drum, right ear (principal); F32.A Depression, unspecified
CPT/HCPCS: 99213; G0463

== ENCOUNTER 2024-11-25 09:28 | Emergency (ER) | payer OTHER, SELFPAY ==
--- NOTE | ~2024-11-25 | XR_ITS ---
XR ankle RT min 3V 11/25/2024 10:06 Indication: Right ankle pain Procedure: 4 views right ankle Comparison: No prior studies for comparison. Findings: No fracture, subluxation or dislocation. No lateral soft tissue swelling. No foreign bodies . Ankle mortise intact. Impression: 1: No acute bone or joint abnormality. Reviewed, dictated and finalized at location A. Impression: 1: No acute bone or joint abnormality.
--- OUTSIDE RECORDS SUMMARY | 2024-11-25 09:34 | XMS_ITS | Encounter Summary ---
Author Organization [facility] Address [address] [place] [address] Phone Care Team Providers Care Tool Or Die Drawing Checker Name Role Phone Ondina Chacko Primary Care Provider + Reason for Visit * Reason Comments Medication Refill Encounter Details Date Type Department Care Team (Late st Contact Info) Description 05/05/2021 Refill [facility] [address] [place] [address] Ondina Chacko PAC [address] [place] [address] Medication Refill Social History Tobacco Use Types [...] 90 days and meeting all other requirements FOOD PRODUCTS MIXER documented in this encounter Plan of Treatment Not on file documented as of this encounter Visit Diagnoses Not on filedocumented in this encounter Additional Health Concerns Infection Onset Date Last Indicated Resolved Time COVID - 19 Confirmed 07/01/2021 07/01/2021 022 12:16 AM DRY FOOD PRODUCTS MIXER Assessment Noted Time PHQ-9 Depression Total Score: 13 021 2:52 PM CDT documented as of this encounter Care Teams Tool Or Die Drawing Checker Relationship Specialty Start Date End Date Ondina Chacko PAC [address] [place] [address] PCP - General Physician Body Man 03/27/21 06/27/24 documented as of this encounter
--- OUTSIDE RECORDS SUMMARY | 2024-11-25 09:34 | XMS_ITS | Encounter Summary ---
Author Organization [facility] Address [address] [place] [address] Phone Care Team Providers Care Boat Joiner Helper Name Role Phone AmayaCami grullona Latha SILVERIO Primary Care Provider + Encounter Details Date Type Department Care Team (Late st Contact Info) Description 03/20/2022 Behavioral Health Patient Survey [facility] [address] [place] [id number] Mychart, Generic Provider [address] [place] [address] Social History Tobacco Use Types Packs/Day Years [...] mechanisms Behavioral Health On track( 3:59 PM SHANK BURNISHER) Yes Lashay Haley LCSW increased coping skills Behavioral Health On track( 3:59 PM SHANK BURNISHER) No Lashay Haley LCSW Note: Goal/Objective: Improve coping skills. Anticipated Time Frame for Goal Completion: 6 months Goal Reviewed with: patient Readiness to change: Ready to change Department associated with goal: [facility] Steps to [...] documented as of this encounter Care Teams Boat Joiner Helper Relationship Specialty Start Date End Date Ondina Chacko PAC [address] [place] [address] PCP - General Physician Special Programs Director 03/27/21 06/27/24 documented as of this encounter
--- OUTSIDE RECORDS SUMMARY | 2024-11-25 09:34 | XMS_ITS | Clinical Summary ---
Author Organization [facility] Address [address] [place] [address] Phone Care Team Providers Care Dcs Engineer Name Role Phone Unavailable Primary Care Provider [...] / 10 MCG Tablet 1 Active Multiple Vitamins-Repair Service Clerk als (WOMENS MULTI PO) Take 1 Capsule [...] Lnp-s, Pf, 3 0 Mcg/0.3 Ml Dose ([employer]) 09/28/2020 DTAP VACCINE 02/17/2008,09/06/2004 DTAP/HEPB/IPV Vaccine 2003,2003,06/26 [...] Comments Blood Pressure 118/82 07/01/2021 10:30 PM WIRE SPOOLER Pulse 108 07/01/2021 10:30 PM WIRE SPOOLER Temperature 37.5 C (99.5 F) 07/01/2021 9:28 PM WIRE SPOOLER Respiratory Rate 15 07/01/2021 10:30 PM WIRE SPOOLER Oxygen Saturation 99% 07/01/2021 10:30 PM WIRE SPOOLER Inhaled Oxygen Concentration - - Weight 95.3 kg (210 lb) 07/01/2021 9:28 PM WIRE SPOOLER Height 172.7 cm (5' 8) 07/01/2021 9:28 PM WIRE SPOOLER Body Mass Index 31.93 07/01/2021 9:28 PM WIRE SPOOLER Plan of Treatment Health Maintenance Due Date [...] mechanisms Behavioral Health On track( 3:59 PM WIRE SPOOLER) Yes Lashay Haley LCSW increased coping skills Behavioral Health On track( 3:59 PM WIRE SPOOLER) No Lashay Haley LCSW Note: Goal/Objective: Improve coping skills. Anticipated Time Frame for Goal Completion: 6 months Goal Reviewed with: patient Readiness to change: Ready to change Department associated with goal: [facility] Steps to achieve goal: [...] 1x/month at least 6 sessions Insurance MEDICAID [facility] MEDICAID [facility]
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
--- OUTSIDE RECORDS SUMMARY | 2024-11-25 09:34 | XMS_ITS | Encounter Summary ---
Author Organization [facility] Address [address] [place] [place] [address] Phone Care Team Providers Care Community Service Worker Name Role Phone Cami Chackoa Latha SILVERIO Primary Care Provider + Encounter Details Date Type Department Care Team (Late st Contact Info) Description 04/24/2022 Behavioral Health Patient Survey [facility] [address] [place] [id number] Mychart, Generic Provider [address] [place] [address] Social History Tobacco Use Types Packs/Day Years [...] mechanisms Behavioral Health On track( 3:59 PM SOIL CONSERVATIONIST) Yes Lashay Haley LCSW increased coping skills Behavioral Health On track( 3:59 PM SOIL CONSERVATIONIST) No Lashay Haley LCSW Note: Goal/Objective: Improve coping skills. Anticipated Time Frame for Goal Completion: 6 months Goal Reviewed with: patient Readiness to change: Ready to change Department associated with goal: [facility] Steps [...] documented as of this encounter Care Teams Community Service Worker Relationship Specialty Start Date End Date Ondina Chacko PAC [address] [place] [address] PCP - General Physician Tool Setter Apprentice 03/27/21 06/27/24 documented as of this encounter
--- OUTSIDE RECORDS SUMMARY | 2024-11-25 09:35 | XMS_ITS | Encounter Summary ---
Author Organization [facility] Address [address] [place] [address] Phone Care Team Providers Care Senior Credit Officer Name Role Phone Ondina Chacko Primary Care Provider + Reason for Visit * Reason Comments Medication Refill Encounter Details Date Type Department Care Team (Late st Contact Info) Description 09/29/2021 Refill [facility] [address] [place] [address] Ondina Chacko PAC [address] [place] [address] Medication Refill Social History Tobacco Use Types [...] Kelly 03/27/21 Office Visit Ondina Chacko PAC [facility] Robin Showing recent visits within past 365 [...] documented as of this encounter Care Teams Senior Credit Officer Relationship Specialty Start Date End Date Ondina Chacko PAC [address] [place] [address] PCP - General Physician Filenet Developer 03/27/21 06/27/24 documented as of this encounter
--- OUTSIDE RECORDS SUMMARY | 2024-11-25 09:35 | XMS_ITS | Data Portability ---
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 11/14/2022 10:32:28 Routine care 952973520 Z34.92 [id number] Yoanna Dumont CNM [place] [address],[place] [address] 11/28/2022 13:39:07 11/28/2022 14:37:51 Routine care 893940518 Z34.92 Upper resp iratory infection 64453547 J06.9 [id number] Zay Hung MD [place] [address],[place] [address] 12/10/2022 14:53:03 12/11/2022 12:44:24 Gestational diabetes mellitus 31902978 O24.410 Z3A.31 [id number] Zay Hung MD [place] [address],[place] [address] 12/19/2022 10:24:42 12/19/2022 13:53:07 Gestational diabetes mellitus class A1 70039104 O24.410 Z3A.32 [id number] Zay Hung MD [place] [address],[place] [address] 12/19/2022 10:24:58 12/19/2022 12:27:48 Gestational diabetes mellitus 69471264 O24.410 Z3A.31 [id number] Yoanna Dumont [facility] [address],[place] [address] 12/19/2022 10:25:14 12/19/2022 12:06:26 Routine care 246713314 Z34.92 [id number] Zay Hung MD [place] [address],[place] [address] 12/26/2022 10:27:08 12/26/2022 11:20:07 Gestational diabetes mellitus 34477340 O24.410 Z3A.31 [id number] Tiffanie Alvarado MD [place] [address],[place] [address] 1 12/26/2022 10:27:27 12/26/2022 11:48:14 Diabetes mellitus 52634964 O24.410 Z3A.33 [id number] [facility] [address],[place] [address] 12/26/2022 10:27:45 12/26/2022 12:59:47 Routine care 548828798 Z34.92 [id number] Zay Hung MD [place] [address],[place] [address] 01/02/2023 10:56:36 01/02/2023 14:51:45 Gestational diabetes mellitus class A1 81177260 O24.410 Z3A.34 [id number] Zay Hung MD [place] [address],[place] [address] 01/02/2023 10:56:53 01/02/2023 13:03:01 Gestational diabetes mellitus 56009770 O24.410 Z3A.31 [id number] Yoanna Dumont [facility] [address],[place] [address] 01/02/2023 10:57:05 01/02/2023 13:52:05 Routine care 732042905 Z34.92 Vulvovaginitis 56125928 N76.0 [id number] Zay Hung MD [place] [address],[place] [address] 01/09/2023 10:57:26 01/09/2023 14:37:45 Gestational diabetes mellitus class A1 37554229 O24.410 Z3A.35 [id number] Zay Hung MD [place] [address],[place] [address] 01/09/2023 10:59:29 01/09/2023 12:46:27 Gestational diabetes mellitus 52797323 O24.410 Z3A.31 [id number] Yoanna Dumont [facility] [address],[place] [address] 01/09/2023 10:59:51 01/09/2023 12:54:10 Routine care 592722544 Z34.92 [id number] Tiffanie Alvarado MD [place] [address],[place] [address] 01/16/2023 10:27:51 01/16/2023 11:17:56 Gestational diabetes mellitus class A1 24459844 O24.410 Z3A.36 [id number] Zay Hung MD [place] [address],[place] [address] 01/16/2023 10:28:22 01/16/2023 11:49:32 Gestational diabetes mellitus 36477645 O24.410 Z3A.31 [id number] [facility] [address],[place] [address] 01/16/2023 10:28:40 01/16/2023 12:14:20 Routine care 227157848 Z34.92 [id number] Zay Hung MD [place] [address],[place] [address] 01/23/2023 10:24:16 01/23/2023 14:56:06 Gestational diabetes mellitus class A1 30768252 O24.410 Z3A.37 [id number] Zay Hung MD [place] [address],[place] [address] 01/23/2023 10:24:48 01/23/2023 12:17:18 Gestational diabetes mellitus 95395567 O24.410 Z3A.31 [id number] [facility] [address],[place] [address] 01/23/2023 10:25:04 01/23/2023 12:35:48 Nipple infection 869990318 N61.0 Routine an tenatal care 499992184 Z34.92 [id number] Zay Hung MD [place] [address],[place] [address] 01/30/2023 10:54:14 01/30/2023 13:09:39 Gestational diabetes mellitus class A1 44193332 O24.410 Z3A.38 [id number] Zay Hung MD [place] [address],[place] [address] 01/30/2023 10:54:38 01/30/2023 12:34:58 Gestational diabetes mellitus 09634586 O24.410 Z3A.31 [id number] [facility] [address],[place] [address] 01/30/2023 10:54:54 01/30/2023 13:00:47 Routine care 886567393 Z34.92 [id number] [facility] [address],[place] [address] 02/01/2023 14:17:59 02/01/2023 14:51:27 Routine care 040911885 Z34.92 [id number] Zay Hung MD [place] [address],[place] [address] 02/01/2023 14:38:43 02/01/2023 15:27:12 Reduced movement 216624113 O36.8199 [id number] [facility] [address],[place] [address] 02/22/2023 14:28:49 02/22/2023 14:54:24 Vulval irritation 950625449 N90.89 vulvar care. f.u pp exam as scheduled [id number] Yoanna Dumont CNM [place] [address],[place] [address] 03/08/2023 09:27:56 03/08/2023 10:07:46 care 036553001 Z39.2 f/u 2 weeks for iud insertion, avoid intercours e, consider pelvic floor pt after insertion [id number] Yoanna Dumont CNM [place] [address],[place] [address] 04/12/2023 09:30:10 04/12/2023 09:51:47 Contraception care management 424708377 Z30.9 [id number] Yoanna Dumont CNM [place] [address],[place] [address] 05/24/2023 13:57:46 05/24/2023 14:39:11 Vaginal pain 16413234 R10.2 f/u if pain does not resolve Contracept ion care management 345114332 Z30.9 [id number] PETER Ghotra [place] [address],[place] [address] 07/09/2023 14:29:11 07/09/2023 15:18:16 Vaginitis 24475532 N76.0 vaginitis/ STI panel sentrx for yeast, r/b/a reviewedvu lvar care guidelines discusseda lternative BC options discussed - declinedRT C for WWE or sooner if needed Time spent in visit is a total of 18mins with at least 50% of visit consisting of counseling and review of plan of care. Venereal d isease screening 246172512 Z11.3 [id number] Yoanna Dumont [facility] [address],[place] [address] 08/02/2023 10:57:18 08/02/2023 11:58:12 Gynecologic examination 18986583 Z01.419 [id number] Yoanna Dumont [facility] [address],[place] [address] 08/14/2023 14:33:26 08/14/2023 14:58:52 Screening procedure 02013093 Z13.9 Venereal d isease screening 207686925 Z11.3 Insertion of intrauterine contraceptive device 36813030 Z30.430 [id number] Yoanna Dumont [place] [address],[place] [address] 09/11/2023 15:32:45 09/12/2023 09:50:34 Contraception care management 483890413 Z30.9 Removal of intrauterine contraceptive device 0291279556 Z30.432 [id number] PETER Ghotra [place] [address],[place] [address] 10/14/2023 14:46:59 10/14/2023 15:35:30 Pain in pelvis 60844393 R10.2 Vaginitis 71824995 N76.0 vaginitis panel sentgc/ct/ trich testing sentsuspec [...] plan of care. Venereal d isease screening 273118613 Z11.3 [id number] TYLER COX MD [place] [address],[place] [address] 04/08/2024 13:55:25 04/08/2024 17:32:25 Venereal disease screening 364869493 Z11.3 - patient reports concern for possible exposure- asymptomat ic- swab collected today, will treat based on results [id number] PETER Ghotra [place] [address],[place] [address] 07/06/2024 15:45:28 07/06/2024 16:20:25 Vaginal discharge 832749456 N89.8 vaginitis/ STI panel sentexam today wnlvulvar care guidelines discussedw ill treat based on results BP precaution s discussed, encouraged PCP f/u Time spent in visit is a total of 18 mins with at least 50% of visit consisting of counseling and review of plan of care. Venereal d isease screening 396904322 Z11.3 [id number] PETER Ghotra [place] [address],[place] [address] 09/10/2024 13:39:08 09/10/2024 14:56:59 Venereal disease screening 735708789 Z11.3 gc/ct/tric h endocervic al testing sentHIV/He p B&C/Syphil is testing ordered per pt requestsaf e sexual practices discussed Unprotecte d sexual intercourse 3680210 Z72.51 UPT (-) Time spent in visit is a total of 20 mins with at least 50% of visit consisting of counseling and review of plan of care. Sexually t ransmitted infectious disease 1643853 A64 Health Concerns Section Related Observation LastModified by Organization Detai ls LastModified Time None Recorded Concern Status LastModified by Organization Details LastModified Time None Recorded Advance Directives Directive None Recorded Payers Encounter Date Sequence Insurance Name Policy Number Policy Dalton Covered Member ID Dalton Member ID Guarantor Name 09/11/2023 1 [facility] - DOS ON OR AFTER 21 (MEDICAID REPLACEMENT - HMO) Lilia Yenne [id number] Lilia Yenne 10/14/2023 1 [facility] ON OR AFTER 12/22/20 (MEDICAID REPLACEMENT - HMO) Lilia Yenne [id number] Lilia Yenne 04/08/2024 1 [facility] ON OR AFTER 12/22/20 (MEDICAID REPLACEMENT - HMO) Lilia Yenne [id number] Lilia Yenne 07/06/2024 1 [facility] ON OR AFTER 12/22/20 (MEDICAID REPLACEMENT - HMO) Lilia Yenne [id number] Lilia Yenne 09/10/2024 1 [facility] ON OR AFTER 12/22/20 (MEDICAID REPLACEMENT - HMO) Lilia Yenne [id number] Lilia Yenne Notes Date Note Type Note Provider Name and Address Organization Details Recorded Time 4 text/html Patient presents for IUD removal. painful, still bleeding wants nuvaring.discussed se risks and benefits Yoanna Dumont CNM [address], [place], [address], [facility] 09/11/2023 16:17:43 4 text/html 18yo [id number] for evaluation of vaginal d/c and irritationsymptoms present x 2 weeksclear/thin/watery dischargepain with IC/deep penetrationnoticed symptoms shortly after using boric acid suppositories for the first timeSA with steady male partner, withdrawal for BC. Had IUD removed last month, going to start Nuvaring with next period, using withdrawal currently neg n/v/fneg odorsneg itchingneg flu-like symptoms PETER Ghotra [address], [place], [address], [facility] 10/14/2023 15:35:23 4 text/html Patient presents for STD testing. Recent infidelity of partner, no known exposure. Some abnormal discharge but no pruritis. Would like vaginal swab however no blood testing due to hx of vasovagal episode. Has had some irregular periods recently however she believes these are due to stress. TYLER COX MD [address], [place], [address], [facility] 04/08/2024 15:58:02 5 text/html 19yopresents for vaginal discharge/odorwhite/thi ck dischargeneg itchingneg n/v/fneg pelvic painwould like STI testing todayTTC , LMP 06/24/2024 Celeste Carlos Alberto null, [facility] 09/10/2024 14:51:32 5 text/html 19yopresents for STI testingpt states (+) chlamydia diagnosed at the beginning of the month at . Both her and her partner completed treatment.[facility] PETER Ghotra [address], [place], [address], [facility] 09/10/2024 14:55:26 OBGyn Episode Ob Episode Information Episode Created Date Number of Fetuses Patient Bloodtype Patient rh Status Prepregnancy Weight lbs Domestic Partner Domestic Partner Phone Father Name Interior Design Coordinator Status 07/23/19 23 1 A Positive 187 CLOSED Fetus Data First Name Last Name Admitted to NICU Weight (g) Sex Living Outcome Pediatric Complications Fetus ID Race Codes Race Delivery Type [place] 3883.88 15 M true Full Term thin mec 98812 Vaginal Delivery Problems Problem Notes [facility] #[phone] appr [place] for IV care subq injectionsPT DECLINES FURTHER APPTS WITH [facility] [place] lamictal - next appt 08/31/22 u/s only - MFM rec that pt be closely managed by prescribing physician of her mental health medications she is currently on. States that M would be happy to discuss with this [...] serial growth thereafter q4wks, testing tbd, delivery tbd.MFM 10/29 730 u/s history of cold sores- NO genital HSV everurine culture wnl Problem Name Start Date End Date Resolution Snomed Code Not e Mental disorder [id number] [facility] Dr. Petty Paredes every 2wk appts; was previously told anx/dep/bipolar. current psych (per pt) says autism and borderline personality disorder. sees psych at [facility] q 2 mos. on buspar, prozac, lamictal.- [facility] Anemia 12/27/2022 MEDICATION [id number] 1 tab sl owfe twice daily Gestational diabetes mellitus 11/01/2022 04013736 rule in 11/01 Yusef Calculation Initial Yusef [...] Date Ultra Sound Latest Days Gestation 0 [email or web address] 07/23/2022 02/11/20 23 0 Pre-hector Flowsheet Flowsheet Date 07/23/2022 Green Score Blood Edema Fundus Height Fundus Units Glucose Ketones Leukocytes Nitrite Labor Signs Protein Cervic Dilation Cervic Effacement Cervic Station neg none none trace Type Weight in lbs Pre/Post Dialysis Refused Weight 187.096510662037 BP Diastolic BP Location Tested BP Systolic BP Type 70 129 Fetus Heart Rate Present A 140 Fetus Movement A No Comments Lilia is a 17yo w ho presents for care at 11.1. She has a history of anxiety/depression/bipolar and is on lamictal/prozac/buspar, but she states her current psychiatrist at [facility] (cannot remember name, will send it to us on portal) has said her actual diagnoses are autism and borderline personality disorder. SHe has an appt next week with MFM for lamictal in . Her nausea and [...] Weight in lbs Pre/Post Dialysis Refused Weight 185.018241987566 BP Diastolic BP Location Tested BP Systolic [...] Weight in lbs Pre/Post Dialysis Refused Weight 191.341458666359 BP Diastolic BP Location Tested BP Systolic [...] Weight in lbs Pre/Post Dialysis Refused Weight 201.166913580342 BP Diastolic BP Location Tested BP Systolic [...] Weight in lbs Pre/Post Dialysis Refused Weight 210.480904026048 BP Diastolic BP Location Tested BP Systolic [...] Weight in lbs Pre/Post Dialysis Refused Weight 209.959574490273 BP Diastolic BP Location Tested BP Systolic [...] better after a while and has a delivery driver. plan small meals even if not hungry [...] Weight in lbs Pre/Post Dialysis Refused Weight 214.851347289681 BP Diastolic BP Location Tested BP Systolic BP Type 64 118 Fetus Heart Rate Present Fetus Movement A Yes Comments bpp 8/10 NST nr, 2 prlonged, not deep, about [...] Weight in lbs Pre/Post Dialysis Refused Weight 215.623463162615 BP Diastolic BP Location Tested BP Systolic [...] done. check to call for preadmit. precautions [id number] - BS log reviewed. Pt has two elevated fasting blood sugars of 102 & 107 and multiple elevated post prandial blood sugars ranging from 146-217. Pt had BBQ, Villegas's, and desserts at a December holiday libertarian. Diet discussed. BS log reviewed with SP. [...] Weight in lbs Pre/Post Dialysis Refused Weight 218.729717525748 BP Diastolic BP Location Tested BP Systolic [...] Weight in lbs Pre/Post Dialysis Refused Weight 218.954595077410 BP Diastolic BP Location Tested BP Systolic [...] she wants to stop drinking use. BPP 8/8 has growth at next visit. GBS today [...] Weight in lbs Pre/Post Dialysis Refused Weight 219.423159652805 BP Diastolic BP Location Tested BP Systolic [...] Weight in lbs Pre/Post Dialysis Refused Weight 220.229000857843 BP Diastolic BP Location Tested BP Systolic [...] Weight in lbs Pre/Post Dialysis Refused Weight 223.785124680902 BP Diastolic BP Location Tested BP Systolic BP Type 79 124 Fetus Heart Rate Present Fetus Movement A Yes Comments patient is having some pain, contractions and nausea. moved IOL to 02/06 at 0500, encouraged diabetic diet, taking glyburide, labor precautions will have rn call forgot blood sugar log bpp 01/29 Flowsheet Date 02/01/2023 Green Score Blood Edema Fundus Height Fundus Units Glucose Ketones Leukocytes Nitrite Labor Signs Protein Cervic Dilation Cervic Effacement Cervic Station neg none none trace Type Weight in lbs Pre/Post Dialysis Refused Weight 221.751249869534 BP Diastolic BP Location Tested BP Systolic [...] Estim ated Date of Delivery false Thalassemia (American, Italian, Mediterranean, Or Background): MCV < 80 false Neural Tube Defect (Meningomyelocele, Spina Bifi da, Or Anencephaly) false Congenital Heart Defect false Down Syndrome false Dedrick-Sachs (eg, Yarsanism, Cajun, Latvian-Tucker) f alse Boyd Disease false Sickle Cell Disease Or Trait () false Hemophilia Or Other Blood Disorders false Muscular Dystrophy false Cystic Fibrosis false [place]'s Chorea false Intellectual Disability/Autism false If Yes, [...] d Regional-Ep idural 39.1 false Yoanna Dumont [facility] Anemia, Gestation al diabetes mellitus Discharge Information Feeding Method Contraceptive Method Maternal HG B and HCT Levels Ob Episode Information Episode Created Date Number of Fetuses Patient Bloodtype Patient rh Status Prepregnancy Weight lbs Domestic Partner Domestic Partner Phone Father Name Interior Design Coordinator Status 07/06/19 23 1 CLOSED Fetus Data First Name Last Name Admitted to NICU Weight (g) Sex Living Outcome Pediatric Complications Fetus ID Race Codes Race Delivery Type , Spontane ous 99387 Yusef Calculation Initial Yusef Date Initial Exam [...] Domestic Partner Domestic Partner Phone Father Name Interior Design Coordinator Status 07/23/19 23 1 CLOSED Fetus Data First Name Last Name Admitted to NICU Weight (g) Sex Living Outcome Pediatric Complications Fetus ID Race Codes Race Delivery Type , Induced 57570 Yusef Calculation Initial Yusef Date Initial Exam [...]
--- OUTSIDE RECORDS SUMMARY | 2024-11-25 09:35 | XMS_ITS | Clinical Summary ---
Author Organization [address] Address [address] [place] [address] Care Team Providers Care Barbed Wire Machine Operator Name Role Phone Ondina Chacko Primary [...] on file Legal Sex Female 3:38 AM VENEER SORTER Gender Identity Not on file Sexual Orientation Not on file Obstetrics History Para Term AB IAB SAB Ectopic Multiple Livin g Live Births 1 Date Outcome GA Total Labor Labor/2nd/3rd Weight Sex Type Anes PTL Venessa A1 A5 Name Clin Last Filed Vital Signs Vital Sign Reading Time Taken Comments Blood Pressure 137/64 08/31/2023 10:55 PM [facility] S[facility]TER Pulse 107 08/31/2023 10:55 PM [facility] Temperature 37.3 C (99.1 F) 08/31/2023 10:55 PM VENE[facility] SORTER Respiratory Rate 16 08/31/2023 10:55 PM VENEER SORTER Oxygen Saturation 100% 08/31/2023 10:55 PM VENE[facility] SORTER Inhaled Oxygen Concentration - - Weight 97.5 kg (215 lb) 08/31/2023 10:55 PM VENE[facility] SORTER Height 172.7 cm (5' 8) 08/31/2023 10:55 PM VENEER SORTER Body Mass Index 32.69 08/31/2023 10:55 PM VENEER SORTER Plan of Treatment Health Maintenance Due Date Last Done Comments Cervical Cancer Screening 2003 Depression Screening 2003 Hepatitis C Screening 2003 Meningococcal B Vaccine (1 of 2 - Standard) 2019 Regular Well Visit/Exam 18-64 2021 DTaP/Tdap/Td Vaccine (7 - Td or Tdap) 06/18/2023 06/18/2013, 02/17/2008, 09/06/2004, Additional history exists Covid-19 Vaccine ( season) 2024 11/08/2020, 09/28/2020 Influenza Vaccine (Season Ended) 2025 08/12/2023, 03/22/2016, 03/31/2015, Additional history exists Pneumococcal vaccine <65 Completed 005, 2003, 2003, Additional history exists Varicella Vaccines Completed 02/17/2008, 06/13/2004 Meningococcal Vaccine Aged Out 01/05/2015 No delano venice eligible based on patient's age to complete this topic HPV Vaccines Completed 07/23/2016, 02/23, 01/20/2016 Hepatitis B Screening Completed 08/12/2023 , 2003, 2003, Additional history exists Insurance [facility] [place] [address] Care Teams Barbed Wire Machine Operator Relationship Specialty Start Date End Date Ondina Chacko PA [address] [phone] PCP - General Care Team Assistant 06/10/22
--- OUTSIDE RECORDS SUMMARY | 2024-11-25 09:35 | XMS_ITS | Referral Summary ---
Author Organization [address] Address [address] [place] [address] Care Team Providers Care Sea Air Land Officer Name Role Phone Ondina Chacko Primary [...] on file Legal Sex Female 3:38 AM CHASSIS DRIVER Gender Identity Not on file Sexual Orientation Not on file Last Filed Vital Signs Vital Sign Reading Time Taken Comments Blood Pressure 137/64 08/31/2023 10:55 PM CHASSIS DRIVER Pulse 107 08/31/2023 10:55 PM CHASSIS DRIVER Temperature 37.3 C (99.1 F) 08/31/2023 10:55 PM CHASSIS DRIVER Respiratory Rate 16 08/31/2023 10:55 PM CHASSIS DRIVER Oxygen Saturation 100% 08/31/2023 10:55 PM CHASSIS DRIVER Inhaled Oxygen Concentration - - Weight 97.5 kg (215 lb) 08/31/2023 10:55 PM CHASSIS DRIVER Height 172.7 cm (5' 8) 08/31/2023 10:55 PM CHASSIS DRIVER Body Mass Index 32.69 08/31/2023 10:55 PM CHASSIS DRIVER Plan of Treatment Not on file Insurance [facility] [place] [address] Care Teams Sea Air Land Officer Relationship Specialty Start Date End Date Ondina Chacko PA [address] [place] [address] PCP - General Quality Officer 06/10/22
[2024-11-25 09:54] VITALS: BP 116/63; PULSE 96; RESP 15; O2SAT 96
--- OUTSIDE RECORDS SUMMARY | 2024-11-25 10:12 | XMS_ITS | Encounter Summary ---
Author Organization [facility] Address [address] [place] [address] Phone Care Team Providers Care Arm Rest Builder Name Role Phone AmayaCami grullona Latha SILVERIO Primary Care Provider + Encounter Details Date Type Department Care Team (Late st Contact Info) Description 03/20/2022 Behavioral Health Patient Survey [facility] [address] [place] [phone] Mychart, Generic Provider [address] [place] [address] Social History Tobacco Use Types Packs/Day Years [...] mechanisms Behavioral Health On track( 3:59 PM CLINICAL SUPPORT NURSE) Yes Lashay Haley LCSW increased coping skills Behavioral Health On track( 3:59 PM CLINICAL SUPPORT NURSE) No Lashay Haley LCSW Note: Goal/Objective: Improve coping skills. Anticipated Time Frame for Goal Completion: 6 months Goal Reviewed with: patient Readiness to change: Ready to change Department associated with goal: [facility] Steps to achieve goal: [...] documented as of this encounter Care Teams Arm Rest Builder Relationship Specialty Start Date End Date Ondina Chacko PAC [address] [place] [address] PCP - General Physician Clerical Proofreader 03/27/21 06/27/24 documented as of this encounter
--- OUTSIDE RECORDS SUMMARY | 2024-11-25 10:12 | XMS_ITS | Encounter Summary ---
Author Organization [facility] Address [address] [place] [address] Phone Care Team Providers Care Director Corporate Name Role Phone Cami Chackoa Latha SILVERIO Primary Care Provider + Encounter Details Date Type Department Care Team (Late st Contact Info) Description 04/24/2022 Behavioral Health Patient Survey [facility] [address] [place] [phone] Mychart, Generic Provider [address] [place] [address] Social History Tobacco Use Types Packs/Day Years [...] mechanisms Behavioral Health On track( 3:59 PM COAL CHUTE WORKER) Yes Lashay Haley LCSW increased coping skills Behavioral Health On track( 3:59 PM COAL CHUTE WORKER) No Lashay Haley LCSW Note: Goal/Objective: Improve coping skills. Anticipated Time Frame for Goal Completion: 6 months Goal Reviewed with: patient Readiness to change: Ready to change Department associated with goal: [facility] Steps to [...] as of this encounter Care Teams Director Corporate Relationship Specialty Start Date End Date Ondina Chacko PAC [address] [place] [address] PCP - General Physician Topper Press Operator Automatic 03/27/21 06/27/24 documented as of this encounter
--- OUTSIDE RECORDS SUMMARY | 2024-11-25 10:12 | XMS_ITS | Referral Summary ---
Author Organization [address] Address [address] [place] [address] Care Team Providers Care Escapement Maker Name Role Phone Ondina Chacko Primary Care [...] on file Legal Sex Female 3:38 AM SALVAGE CUTTER Gender Identity Not on file Sexual Orientation Not on file Last Filed Vital Signs Vital Sign Reading Time Taken Comments Blood Pressure 137/64 08/31/2023 10:55 PM SALVAGE CUTTER Pulse 107 08/31/2023 10:55 PM SALVAGE CUTTER Temperature 37.3 C (99.1 F) 08/31/2023 10:55 PM SALVAGE CUTTER Respiratory Rate 16 08/31/2023 10:55 PM SALVAGE CUTTER Oxygen Saturation 100% 08/31/2023 10:55 PM SALVAGE CUTTER Inhaled Oxygen Concentration - - Weight 97.5 kg (215 lb) 08/31/2023 10:55 PM SALVAGE CUTTER Height 172.7 cm (5' 8) 08/31/2023 10:55 PM SALVAGE CUTTER Body Mass Index 32.69 08/31/2023 10:55 PM SALVAGE CUTTER Plan of Treatment Not on file Insurance [facility] [place] [address] Care Teams Escapement Maker Relationship Specialty Start Date End Date Ondina Chacko PA [address] [place] [address] PCP - General Aircraft Pneudraulic Systems Mechanic 06/10/22
--- OUTSIDE RECORDS SUMMARY | 2024-11-25 10:12 | XMS_ITS | Clinical Summary ---
Author Organization [facility] Address [address] [place] [address] Care Team Providers Care Print Designer Name Role Phone Franca Monroy PA-C Primary Care Provider Source Comments [facility],non-owned Affiliates and Associated Physician Practices is amultiple site organization consisting of ambulatory clinics and hospital sitesin [place], [place], [place] and [place]. This disclosure is being madepursuant to the Care Everywhere program and may not contain all information available regarding this patient. Last updated 18.[facility] Allergies Active Allergy Reactions Criticality Noted [...] Information Patient not taking.Reported on 03/09/2021 Multiple Vitamins-Extrusion Bender als (MULTIPLE VITAMINS/WOMEN S PO) Take 1 [...] disease) Immunizations Immunization Administration Dates Next Due CovMyCrowd primary monoval ent 12+ yr 0.3mL Purple [...] drink = 0.6 oz pur e alcohol) Omaha Depression Scale Answer Date Recorded Omaha Depression Scale Total 18 08/01/2022 The thought of harming myself has occurred to me . Hardly ever 08/01/2022 Comments No Sex and Gender Information Value Date Recorded Sex Assigned at Female 09/25/2020 12:43 PM CDT Legal Sex Female 5:44 AM ADMIN DIR Gender Identity Female 09/25/2020 12:43 PM CDT Sexual Orientation Bisexual 09/25/2020 12 :43 PM CDT Last Filed Vital Signs Vital Sign Reading Time Taken Comments Blood Pressure 133/73 08/01/2022 10:59 AM ADMIN DIR Pulse 88 08/01/2022 10:59 AM ADMIN DIR Temperature 36.3 C (97.3 F) 01/17/2021 10:15 AM CDT Respiratory Rate 14 01/17/2021 11:25 AM CDT Oxygen Saturation 98% 01/17/2021 11:25 AM CDT Inhaled Oxygen Concentration - - Weight 84.6 kg (186 lb 6.4 oz) 08/01/2022 10:59 AM ADMIN DIR Height 172.7 cm (5' 8) 08/01/2022 10:59 AM ADMIN DIR Body Mass Index 28.34 08/01/2022 10:59 AM ADMIN DIR Plan of Treatment Health Maintenance Due Date [...] file Group ID:Not on file Type:Medicaid Address: [address] [facility] Care Teams Print Designer Relationship Specialty Start Date End Date Franca Monroy PA-C [address] [place] [phone] PCP - General Physician Livestock Trader 12/15/20
--- OUTSIDE RECORDS SUMMARY | 2024-11-25 10:12 | XMS_ITS | Clinical Summary ---
Author Organization [address] Address [address] [place] [address] Care Team Providers Care Auto Driver Name Role Phone Ondina Chacko Primary Care Provider [phone] Allergies Active Allergy Reactions Criticality Noted Date [...] on file Legal Sex Female 3:38 AM BRICK KILN BURNER Gender Identity Not on file Sexual Orientation Not on file Obstetrics History Para Term AB IAB SAB Ectopic Multiple Livin g Live Births 1 Date Outcome GA Total Labor Labor/2nd/3rd Weight Sex Type Anes PTL Venessa A1 A5 Name Clin Last Filed Vital Signs Vital Sign Reading Time Taken Comments Blood Pressure 137/64 08/31/2023 10:55 PM BRICK KILN BURNER Pulse 107 08/31/2023 10:55 PM BRICK KILN BURNER Temperature 37.3 C (99.1 F) 08/31/2023 10:55 PM BRICK KILN BURNER Respiratory Rate 16 08/31/2023 10:55 PM BRICK KILN BURNER Oxygen Saturation 100% 08/31/2023 10:55 PM BRICK KILN BURNER Inhaled Oxygen Concentration - - Weight 97.5 kg (215 lb) 08/31/2023 10:55 PM BRICK KILN BURNER Height 172.7 cm (5' 8) 08/31/2023 10:55 PM BRICK KILN BURNER Body Mass Index 32.69 08/31/2023 10:55 PM BRICK KILN BURNER Plan of Treatment Health Maintenance Due Date [...] , 2003, 2003, Additional history exists Insurance [facility] [place] [address] Care Teams Auto Driver Relationship Specialty Start Date End Date Ondina Chacko PA [address] [place] [phone] PCP - General Facility Manager 06/10/22
--- OUTSIDE RECORDS SUMMARY | 2024-11-25 10:12 | XMS_ITS | Clinical Summary ---
Author Organization [facility] Address [address] [place] [address] Phone Care Team Providers Care Tattoo Designer Name Role Phone Unavailable Primary Care Provider [...] / 10 MCG Tablet 1 Active Multiple Vitamins-Faceter als (WOMENS MULTI PO) Take 1 Capsule [...] Lnp-s, Pf, 3 0 Mcg/0.3 Ml Dose (WallStrip) 09/28/2020 DTAP VACCINE 02/17/2008,09/06/2004 DTAP/HEPB/IPV Vaccine 2003,2003,06/26 [...] Comments Blood Pressure 118/82 07/01/2021 10:30 PM SCREENING SPECIALIST Pulse 108 07/01/2021 10:30 PM SCREENING SPECIALIST Temperature 37.5 C (99.5 F) 07/01/2021 9:28 PM SCREENING SPECIALIST Respiratory Rate 15 07/01/2021 10:30 PM SCREENING SPECIALIST Oxygen Saturation 99% 07/01/2021 10:30 PM SCREENING SPECIALIST Inhaled Oxygen Concentration - - Weight 95.3 kg (210 lb) 07/01/2021 9:28 PM SCREENING SPECIALIST Height 172.7 cm (5' 8) 07/01/2021 9:28 PM SCREENING SPECIALIST Body Mass Index 31.93 07/01/2021 9:28 PM SCREENING SPECIALIST Plan of Treatment Health Maintenance Due Date [...] mechanisms Behavioral Health On track( 3:59 PM SCREENING SPECIALIST) Yes Lashay Haley LCSW increased coping skills Behavioral Health On track( 3:59 PM SCREENING SPECIALIST) No Lashay Haley LCSW Note: Goal/Objective: Improve coping skills. Anticipated Time Frame for Goal Completion: 6 months Goal Reviewed with: patient Readiness to change: Ready to change Department associated with goal: [facility] Steps [...] 1x/month at least 6 sessions Insurance MEDICAID [facility] MEDICAID [facility]
--- OUTSIDE RECORDS SUMMARY | 2024-11-25 10:12 | XMS_ITS | Encounter Summary ---
Author Organization [facility] Address [address] [place] [address] Phone Care Team Providers Care Fulfillment Specialist Name Role Phone Ondina Chacko Primary Care Provider + Reason for Visit * Reason Comments Medication Refill Encounter Details Date Type Department Care Team (Late st Contact Info) Description 09/29/2021 Refill [facility] - [facility] [address] [place] [address] Ondina Chacko PAC [address] [place] [address] Medication Refill Social History Tobacco Use Types [...] Kelly 03/27/21 Office Visit Ondina Chacko PAC [facility] Robin Showing recent visits within past [...] documented as of this encounter Care Teams Fulfillment Specialist Relationship Specialty Start Date End Date Ondina Chacko PAC [address] [place] [address] PCP - General Physician News Agent 03/27/21 06/27/24 documented as of this encounter
--- OUTSIDE RECORDS SUMMARY | 2024-11-25 10:12 | XMS_ITS | Encounter Summary ---
Author Organization [facility] Address [address] [place] [address] Phone Care Team Providers Care Dark Room Attendant Name Role Phone Ondina Chacko Primary Care Provider + Reason for Visit * Reason Comments Medication Refill Encounter Details Date Type Department Care Team (Late st Contact Info) Description 05/05/2021 Refill [facility] [address] [place] [address] Ondina Chacko PAC [address] [place] [address] Medication Refill Social History Tobacco Use Types [...] 90 days and meeting all other requirements ICE ADMINISTRATOR documented in this encounter Plan of Treatment Not on file documented as of this encounter Visit Diagnoses Not on filedocumented in this encounter Additional Health Concerns Infection Onset Date Last Indicated Resolved Time COVID - 19 Confirmed 07/01/2021 07/01/2021 022 12:16 AM HOSPICE ADMINISTRATOR Assessment Noted Time PHQ-9 Depression Total Score: 13 021 2:52 PM CDT documented as of this encounter Care Teams Dark Room Attendant Relationship Specialty Start Date End Date Ondina Chacko PAC [address] [place] [address] PCP - General Physician Etl Tester 03/27/21 06/27/24 documented as of this encounter
[2024-11-25 10:28] VITALS: BP 103/73; PULSE 86; RESP 12; O2SAT 99
--- NOTE | 2024-11-25 14:12 | ED_ITS ---
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 Right ankle, she is able to walk but it does feel uncomfortable, taking ibuprofen Related Data Home Medications ?Medication ?Instructions ?Recorded ?Confirmed ?Last Taken ?Type trazodone 50 mg tablet 50 mg PO BID 09/24/23 08/26/24 Unknown History bupropion HCl 100 mg tablet,12 hr mg PO 10/13/24 Unknown History sustained-release Allergies Allergy/AdvReac Type Severity Reaction Status Date / Time bee venom protein (honey Allergy Unknown Anaphylactic Verified 11/25/24 10:01 bee) (bees) Shock venom-wasp Allergy Unknown Anaphylactic Verified 11/25/24 10:01 Shock red dye Allergy Swelling Verified 11/25/24 10:01 of Lip/Tongue/Throat Review of Systems Review of Systems: All systems reviewed & are unremarkable except as noted in HPI and below PMFSH Past Medical History Medical History Tonsillitis UTI (urinary tract infection) Anxiety Depression Right arm fracture Ankle fracture, left Surgical History Surgical History History of dental surgery Family History Family History Father Diabetes mellitus SVT (supraventricular tachycardia) Grandparent Diabetes mellitus Grandparent Diabetes mellitus Social History Social History Smoking status: Never smoker Alcohol intake: current Substance use: never Lack of Transportation: No Lack of Food: Never True Current Housing: I Have Housing Concerned About Future Housing: No Difficulty Paying Gas/Electric Bills: No Difficulty Paying for Meds: No Currently Unemployed: No Education: High School Diploma/GED Difficulty w/ Childcare or Family Care: No Gender identity (if verbalized by the patient): Female Spiritual care concerns: No Exam Narrative: EXAMINATION OF ORGAN SYSTEMS/BODY AREAS: Constitutional: Vital signs per nursing GENERAL:[No acute distress, non-toxic appearing.] HEAD: Normal with no signs of head trauma. EYES: EOMI, conjunctiva normal ENT: Hearing grossly intact LUNGS: Nonlabored breathing. HEART: [Regular rate and rhythm], normal DP pulse ABD: [Soft], [nontender to palpation] EXT: Normal range of motion, tenderness to right lateral malleolus with some swelling SKIN: [No rashes or lesions.] NEURO: [Alert and oriented x 3. No gross focal sensory or strength deficits.] PSYCH: Normal affect Course Vital Signs Vital signs: Vital Signs Pulse Rate 96 11/25/24 09:54 Respiratory Rate 15 11/25/24 09:54 Blood Pressure 116/63 11/25/24 09:54 Pulse Oximetry 96 11/25/24 09:54 Oxygen Delivery Room Air 11/25/24 09:54 Pulse Rate 86 11/25/24 10:28 Respiratory Rate 12 11/25/24 10:28 Blood Pressure 103/73 11/25/24 10:28 Pulse Oximetry 99 11/25/24 10:28 Oxygen Delivery Room Air 11/25/24 09:54 MDM - Extremity Injury (Lower) MDM Narrative Medical decision making narrative: MEDICAL DECISION MAKING AND COURSE IN THE ED WITH INTERPRETATION/REVIEW OF DIAGNOSTIC STUDIES: Electronic medical record was reviewed. This patient was seen by myself. Patient presented to the ED with complaint of right ankle pain after inversion injury. Vitals [were within acceptable limits]. Physical exam revealed tenderness at tenderness seems to right lateral malleolus. Based on the patient's history and physical exam, I am concerned for fracture vs sprain. Ankle x-ray without acute fracture on my independent interpretation KYREE wrap applied to injured extremity. Patient given strict return precautions if pain is worse or there is poor blood flow to the extremity, and advised to rest the limb and to followup with orthopedics as needed. Discharge Plan Discharge Clinical Impression: Sprained ankle Patient Disposition: Home Condition: Stable Instructions: Ankle Sprain (ED) Additional Instructions: Please follow-up with your doctor, use Kyree wrap and ice and ibuprofen and you can always return to the ER for any further issues. Try to rest your ankle as much as you can. Patient Language: French Prescriptions: No Action trazodone 50 mg tablet 50 mg PO BID bupropion HCl 100 mg tablet sustained-release 12 hr PO amoxicillin-pot clavulanate 875-125 mg tablet 1 tablet PO Q12H Qty: 20 0RF Follow-up/Referrals: PHYSICIAN,EDITORIAL SPECIALIST [Primary Care Provider] - Stand Alone Forms: Work/School Release IP
== END 2024-11-25 10:30 | disposition home or self-care (01) ==
PROVIDERS: Emergency Provider Emergency Medicine
DX: S93.401A Sprain of unspecified ligament of right ankle, initial encounter (principal); F41.9 Anxiety disorder, unspecified; F32.A Depression, unspecified; Z87.440 Personal history of urinary (tract) infections; Z79.899 Other long term (current) drug therapy; X50.9XXA Other and unspecified overexertion or strenuous movements or postures, initial encounter
CPT/HCPCS: 73610; 99283